=== PATIENT | male | born 1980 | race Caucasian/White ===

== ENCOUNTER 2017-01-16 13:33 | Emergency (ER) | payer MEDICAID, OTHER ==
[~2017-01-16] VITALS: Ht 170.2 cm; Wt 120.5 kg
[2017-01-16] MEDS ORDERED: RISPC375 IM (13:42)
[2017-01-16 14:35] LABS: BASOPHILS % (AUTO) 0.4 % (0.0-2.0); EOSINOPHILS % (AUTO) 3.7 % (1.0-6.0); HEMATOCRIT 43.9 % (41-53); HEMOGLOBIN 15.2 g/dL (13.5-17.5); LYMPHOCYTES # (AUTO) 2.8 K/uL (1.0-4.8); LYMPHOCYTES % (AUTO) 23.1 % (22.0-44.0); MEAN CORPUSCULAR HEMOGLOBIN 31.7 pg (26.0-34.0); MEAN CORPUSCULAR HGB CONC 34.7 G/dL (31.0-37.0); MEAN CORPUSCULAR VOLUME 91 fL (80-100); MONOCYTES % (AUTO) 8.3 % (2.0-9.0); NEUTROPHILS # (AUTO) 7.8 K/uL (1.8-7.7); NEUTROPHILS % (AUTO) 64.5 % (40.0-70.0); PLATELET COUNT (AUTO) 367 K/uL (150-450); RED CELL DISTRIBUTION WIDTH 13.4 % (11.5-14.5)
[2017-01-16 14:52] LABS: ANION GAP 8 mmol/L (8-16); CALCIUM, TOTAL 8.4 mg/dL (8.8-10.5); CARBON DIOXIDE 24 mmol/L (22-29); CHLORIDE 105 mmol/L (98-107); GLOMERULAR FILTR. RATE CALC > 60 mL/min (>60); POTASSIUM 3.7 mmol/L (3.5-5.1); SODIUM SERUM 137 mmol/L (136-145); UREA NITROGEN, BLOOD 6 mg/dL (7-18)
[2017-01-16 14:58] LABS: ALANINE AMINOTRANSFERASE 83 U/L (12-78); ALBUMIN 3.3 g/dL (3.4-5.0); ASPARTATE AMINOTRANSFERASE 48 U/L (15-37); BILIRUBIN,TOTAL 0.4 mg/dL (0.1-1.0); TOTAL PROTEIN, SERUM 7.3 g/dL (6.4-8.2)
[2017-01-16 16:00] VITALS: BP 142/90
== END 2017-01-16 17:03 | disposition home or self-care (01) ==
LOC: EMS 13:35
DX: F31.9 Bipolar disorder, unspecified (principal); F20.9 Schizophrenia, unspecified; F43.10 Post-traumatic stress disorder, unspecified; F41.9 Anxiety disorder, unspecified; F17.210 Nicotine dependence, cigarettes, uncomplicated
CPT/HCPCS: 36415; 80053; 80307; 85025; 99284; G0480

== ENCOUNTER 2018-01-15 01:37 | Emergency (ER) | payer OTHER ==
[~2018-01-15] VITALS: Ht 165.1 cm; Wt 114.5 kg
[~2018-01-15 01:37] MED LIST: RISPC375 IM
[2018-01-15] MEDS ORDERED: PALI39DI IM (01:46)
[2018-01-15] MEDS ORDERED: ACETAMINOPHEN 500 MG TABLET PO ONE (02:00)
[2018-01-15 02:46] VITALS: BP 136/74
== END 2018-01-15 03:21 | disposition home or self-care (01) ==
LOC: EMS 01:38
DX: S00.83XA Contusion of other part of head, initial encounter (principal); S00.33XA Contusion of nose, initial encounter; F41.9 Anxiety disorder, unspecified; F31.9 Bipolar disorder, unspecified; F20.9 Schizophrenia, unspecified; F43.10 Post-traumatic stress disorder, unspecified; F17.210 Nicotine dependence, cigarettes, uncomplicated; Z79.899 Other long term (current) drug therapy; Y04.0XXA Assault by unarmed brawl or fight, initial encounter; Y93.89 Activity, other specified; Y92.098 Other place in other non-institutional residence as the place of occurrence of the external cause; Y99.8 Other external cause status
CPT/HCPCS: 70160; 99284; 99406

== ENCOUNTER 2020-11-22 08:36 | Inpatient (IN) | payer MEDICAID, OTHER ==
[~2020-11-22] VITALS: Ht 167.6 cm; Wt 103.0 kg
[~2020-11-22 08:36] MED LIST changes: +PALI39DI IM; -RISPC375 IM
[2020-11-22] MEDS ORDERED: PERTUSS(ACELL),DIPH,TET VAC/PF 0.5 ML SYRINGE IM. ONE (10:15)
[2020-11-22] MEDS ORDERED: SODIUM CHLORIDE 0.9% 250 ML IRRIG SOLUTION BOTTLE IRRIG ONE (10:15)
[2020-11-22] MEDS ORDERED: LORazepam 2 MG/ML VIAL IM ONE (10:15)
[2020-11-22] MEDS ORDERED: HALOPERIDOL LACTATE 5 MG/ML VIAL IM ONE (10:15)
[2020-11-22] MEDS ORDERED: DiphenhydrAMINE HCL 50 MG/ML VIAL IM ONE (10:15)
[2020-11-22] MEDS ORDERED: LIDOCAINE 1%/EPI 1:200,000/PF 10 ML VIAL ID ONE (10:30)
[2020-11-22 10:57] LABS: BASOPHILS % (AUTO) 0.7 % (0.0-2.0); EOSINOPHILS % (AUTO) 1.5 % (1.0-6.0); HEMATOCRIT 39.9 % (41-53); HEMOGLOBIN 13.4 g/dL (13.5-17.5); LYMPHOCYTES # (AUTO) 1.5 K/uL (1.0-4.8); LYMPHOCYTES % (AUTO) 11.3 % (22.0-44.0); MEAN CORPUSCULAR HEMOGLOBIN 31.3 pg (26.0-34.0); MEAN CORPUSCULAR HGB CONC 33.7 G/dL (31.0-37.0); MEAN CORPUSCULAR VOLUME 93 fL (80-100); MONOCYTES # (AUTO) 1.3 K/uL (0.1-1.0); MONOCYTES % (AUTO) 9.8 % (2.0-9.0); NEUTROPHILS # (AUTO) 10.2 K/uL (1.8-7.7); NEUTROPHILS % (AUTO) 76.7 % (40.0-70.0); PLATELET COUNT (AUTO) 361 K/uL (150-450); RED BLOOD CELL COUNT(AUTO) 4.29 MIL/uL (4.50-5.90); RED CELL DISTRIBUTION WIDTH 12.6 % (11.5-14.5)
[2020-11-22 11:02] LABS: COVID AG,FIA SOURCE NASOPHARYNGEAL
[2020-11-22 11:10] LABS: ANION GAP 8 mmol/L (8-16); CALCIUM, TOTAL 8.3 mg/dL (8.8-10.5); CARBON DIOXIDE 25 mmol/L (22-29); CHLORIDE 103 mmol/L (98-107); CREATININE 0.83 mg/dL (0.60-1.30); GLOMERULAR FILTR. RATE CALC > 60 mL/min (>60); GLUCOSE,RANDOM 101 mg/dL (70-110); POTASSIUM 3.6 mmol/L (3.5-5.1); SODIUM SERUM 136 mmol/L (136-145); UREA NITROGEN, BLOOD 9 mg/dL (7-18)
[2020-11-22 11:15] LABS: AMPHET/METH SCREEN,URINE NEGATIVE (NEGATIVE); BARBITURATE SCREEN, URINE NEGATIVE (NEGATIVE); BENZODIAZEPINES SCREEN,URINE NEGATIVE (NEGATIVE); CANNABINOID SCREEN,URINE NEGATIVE (NEGATIVE); COCAINE SCREEN,URINE NEGATIVE (NEGATIVE); METHADONE SCREEN, URINE NEGATIVE (NEGATIVE); OPIATE SCREEN,URINE NEGATIVE (NEGATIVE)
[2020-11-22 11:17] LABS: PHENCYCLIDINE SCREEN,URINE NEGATIVE (NEGATIVE)
[2020-11-22 11:18] LABS: ALANINE AMINOTRANSFERASE 80 U/L (12-78); ALBUMIN 3.3 g/dL (3.4-5.0); ALKALINE PHOSPHATASE 63 U/L (46-116); ASPARTATE AMINOTRANSFERASE 71 U/L (15-37); BILIRUBIN,TOTAL 0.2 mg/dL (0.1-1.0); TOTAL PROTEIN, SERUM 7.4 g/dL (6.4-8.2)
[2020-11-22] MEDS ORDERED: LOPERAMIDE HCL 2 MG CAPSULE PO PRN (11:30)
[2020-11-22] MEDS ORDERED: GuaiFENesin/D-METHORPHAN [SUGAR-FREE] 200-20MG/10 ML SYRUP UDCUP PO PRN (11:30)
[2020-11-22] MEDS ORDERED: MAG HYDROX/AL HYDROX/SIMETH ES 30 ML SUSPENSION UDCUP PO PRN (11:30)
[2020-11-22] MEDS ORDERED: PROMETHAZINE HCL 25 MG TABLET PO PRN (11:30)
[2020-11-22] MEDS ORDERED: TUBERCULIN, PURIFIED PROTEIN DERIVATIVE 5 TU/0.1 ML SYRINGE ID ONE (11:30)
[2020-11-22] MEDS ORDERED: IBUPROFEN 600 MG TABLET PO ONE (19:00)
[2020-11-22] MEDS: ACETAMINOPHEN 325 MG TABLET PO PRN (20:54)
[2020-11-22] MEDS: THIAMINE 100 MG TABLET PO SCH (22:25)
[2020-11-22] MEDS: HydrOXYzine PAMOATE 50 MG CAPSULE PO PRN (22:25)
[2020-11-22] MEDS: OLANZapine 5 MG RAPDIS TABLET PO SCH (22:25)
[2020-11-22] MEDS: MELATONIN 5 MG TABLET PO SCH (22:25)
[2020-11-22 23:06] VITALS: BP 127/76
[2020-11-23] MEDS ORDERED: ACETAMINOPHEN 325 MG TABLET PO PRN (01:00)
[2020-11-23 02:18] VITALS: BP 150/71
[2020-11-23] MEDS: HydrOXYzine PAMOATE 50 MG CAPSULE PO PRN ×3 (02:27→11:13)
[2020-11-23] MEDS: ACETAMINOPHEN 325 MG TABLET PO PRN ×3 (02:27→18:28)
[2020-11-23] MEDS: OLANZapine 5 MG RAPDIS TABLET PO PRN ×2 (06:37→13:56)
[2020-11-23 06:38] VITALS: BP 136/80
[2020-11-23 07:57] LABS: HEMOGLOBIN A1C 5.4 % (3.8-5.6)
[2020-11-23 08:17] LABS: CHOL/HDL RATIO 3.3 (4.2-7.3); FREE T4 (FREE THYROXINE) 1.05 ng/dL (0.76-1.46); THYROID STIMULATING HORMONE 1.95 uIU/mL (0.36-3.74)
[2020-11-23] MEDS: NICOTINE 21 MG/24 HOUR PATCH TD SCH (08:29)
[2020-11-23] MEDS: NALTREXONE HCL 50 MG TABLET PO SCH (08:30)
[2020-11-23] MEDS: OMEGA-3/DHA/EPA/FISH OIL 1,000 MG CAPSULE PO SCH (08:30)
[2020-11-23] MEDS: THIAMINE 100 MG TABLET PO SCH ×2 (08:30→16:36)
[2020-11-23] MEDS: FOLIC ACID 1 MG TABLET PO SCH (08:30)
[2020-11-23] MEDS: MULTIVITAMINS WITH MINERALS, THERAPEUTIC TABLET PO SCH (08:30)
[2020-11-23] MEDS: BACITRACIN 28 GM OINTMENT TP SCH ×2 (08:32→17:06)
[2020-11-23 09:14] VITALS: BP 115/64
[2020-11-23] MEDS: MAGNESIUM HYDROXIDE SUSPENSION 30 ML UDCUP PO PRN (09:29)
[2020-11-23] MEDS: NAPROXEN 500 MG TABLET PO SCH ×2 (12:41→16:36)
[2020-11-23] MEDS ORDERED: GABAPENTIN 300 MG CAPSULE PO SCH ×2 (13:00→21:00)
[2020-11-23] MEDS ORDERED: PALIPERIDONE PALMITATE 39 MG/0.25 ML SYRINGE IM ONE (13:30)
[2020-11-23] MEDS: GABAPENTIN 300 MG CAPSULE PO SCH (16:36)
[2020-11-23] MEDS: LORazepam 2 MG TABLET PO PRN (16:36)
[2020-11-23 17:44] VITALS: BP 132/72
[2020-11-23] MEDS: OLANZapine 5 MG RAPDIS TABLET PO SCH (20:05)
[2020-11-23] MEDS: MELATONIN 5 MG TABLET PO SCH (20:05)
[2020-11-24 02:37] VITALS: BP 153/86
[2020-11-24] MEDS: ACETAMINOPHEN 325 MG TABLET PO PRN ×2 (02:46→13:36)
[2020-11-24] MEDS: MAGNESIUM HYDROXIDE SUSPENSION 30 ML UDCUP PO PRN (02:53)
[2020-11-24] MEDS: OLANZapine 5 MG RAPDIS TABLET PO PRN ×2 (05:36→18:09)
[2020-11-24] MEDS: LORazepam 2 MG TABLET PO PRN ×3 (05:36→18:09)
[2020-11-24] MEDS: GABAPENTIN 300 MG CAPSULE PO PRN ×3 (05:46→18:15)
[2020-11-24] MEDS: MULTIVITAMINS WITH MINERALS, THERAPEUTIC TABLET PO SCH (08:37)
[2020-11-24] MEDS: FOLIC ACID 1 MG TABLET PO SCH (08:37)
[2020-11-24] MEDS: THIAMINE 100 MG TABLET PO SCH ×2 (08:37→16:57)
[2020-11-24] MEDS: OMEGA-3/DHA/EPA/FISH OIL 1,000 MG CAPSULE PO SCH (08:37)
[2020-11-24] MEDS: NALTREXONE HCL 50 MG TABLET PO SCH (08:38)
[2020-11-24] MEDS: GABAPENTIN 300 MG CAPSULE PO SCH ×3 (08:38→16:57)
[2020-11-24] MEDS: BACITRACIN 28 GM OINTMENT TP SCH ×2 (08:38→17:00)
[2020-11-24] MEDS: NICOTINE 21 MG/24 HOUR PATCH TD SCH (08:38)
[2020-11-24] MEDS: NAPROXEN 500 MG TABLET PO SCH ×2 (08:40→16:57)
[2020-11-24] MEDS: HydrOXYzine PAMOATE 50 MG CAPSULE PO PRN ×2 (08:55→17:49)
[2020-11-24 09:35] VITALS: BP 126/61
[2020-11-24 16:29] VITALS: BP 132/88
[2020-11-24] MEDS: OLANZapine 10 MG RAPDIS TABLET PO SCH (20:17)
[2020-11-24] MEDS: MELATONIN 5 MG TABLET PO SCH (20:17)
[2020-11-25 00:03] VITALS: BP 114/61
[2020-11-25] MEDS: ACETAMINOPHEN 325 MG TABLET PO PRN ×3 (00:11→12:21)
[2020-11-25] MEDS: GABAPENTIN 300 MG CAPSULE PO SCH ×4 (00:12→16:49)
[2020-11-25] MEDS: LORazepam 2 MG TABLET PO PRN ×4 (00:12→16:50)
[2020-11-25] MEDS: GABAPENTIN 300 MG CAPSULE PO PRN ×5 (00:12→22:56)
[2020-11-25] MEDS: NAPROXEN 500 MG TABLET PO SCH ×2 (06:31→16:49)
[2020-11-25] MEDS: OMEGA-3/DHA/EPA/FISH OIL 1,000 MG CAPSULE PO SCH (09:15)
[2020-11-25] MEDS: NALTREXONE HCL 50 MG TABLET PO SCH (09:15)
[2020-11-25] MEDS: MULTIVITAMINS WITH MINERALS, THERAPEUTIC TABLET PO SCH (09:15)
[2020-11-25] MEDS: THIAMINE 100 MG TABLET PO SCH ×2 (09:15→16:49)
[2020-11-25] MEDS: BACITRACIN 28 GM OINTMENT TP SCH ×2 (09:16→16:50)
[2020-11-25] MEDS: FOLIC ACID 1 MG TABLET PO SCH (09:16)
[2020-11-25] MEDS: NICOTINE 21 MG/24 HOUR PATCH TD SCH (09:16)
[2020-11-25] MEDS ORDERED: OMEG-135 PO (14:09)
[2020-11-25] MEDS ORDERED: NALT50TA PO (14:09)
[2020-11-25] MEDS ORDERED: GABA-1181 PO (14:09)
[2020-11-25] MEDS ORDERED: OLAN10TA26 PO (14:09)
[2020-11-25] MEDS ORDERED: MELA5TAB3 PO (14:09)
[2020-11-25 14:38] VITALS: BP 140/86
[2020-11-25 16:24] VITALS: BP 136/81
[2020-11-25] MEDS: OLANZapine 5 MG RAPDIS TABLET PO PRN (16:50)
[2020-11-25] MEDS: HydrOXYzine PAMOATE 50 MG CAPSULE PO PRN (16:50)
[2020-11-25] MEDS: OLANZapine 10 MG RAPDIS TABLET PO SCH (20:34)
[2020-11-25] MEDS: MELATONIN 5 MG TABLET PO SCH (20:34)
[2020-11-26] MEDS: ACETAMINOPHEN 325 MG TABLET PO PRN (00:04)
[2020-11-26 00:07] VITALS: BP 123/78
[2020-11-26] MEDS: NAPROXEN 500 MG TABLET PO SCH (07:02)
[2020-11-26] MEDS: THIAMINE 100 MG TABLET PO SCH (08:25)
[2020-11-26] MEDS: NALTREXONE HCL 50 MG TABLET PO SCH (08:25)
[2020-11-26] MEDS: FOLIC ACID 1 MG TABLET PO SCH (08:25)
[2020-11-26] MEDS: GABAPENTIN 300 MG CAPSULE PO SCH ×2 (08:25→12:53)
[2020-11-26] MEDS: OMEGA-3/DHA/EPA/FISH OIL 1,000 MG CAPSULE PO SCH (08:25)
[2020-11-26] MEDS: NICOTINE 21 MG/24 HOUR PATCH TD SCH (08:26)
[2020-11-26] MEDS: MULTIVITAMINS WITH MINERALS, THERAPEUTIC TABLET PO SCH (08:27)
[2020-11-26] MEDS: BACITRACIN 28 GM OINTMENT TP SCH (08:27)
[2020-11-26 08:39] VITALS: BP 137/76
[2020-11-26] MEDS: LORazepam 2 MG TABLET PO PRN (08:58)
[2020-11-26] MEDS: OLANZapine 5 MG RAPDIS TABLET PO PRN (08:58)
[2020-11-26] MEDS: HydrOXYzine PAMOATE 50 MG CAPSULE PO PRN (08:58)
[2020-11-26] MEDS ORDERED: NAPR-1025 PO (09:57)
== END 2020-11-26 13:30 | disposition home or self-care (01) | DRG 750 ==
LOC: EMS 08:44 → B3A 20:35
PROVIDERS: ADMIT Psychiatry & Neurology Psychiatry; ATTEND Psychiatry & Neurology Psychiatry
PROC: 0HQDXZZ Repair Right Lower Arm Skin, External Approach (ICD-10-PCS; principal; 2020-11-22)
DX: F20.9 Schizophrenia, unspecified (principal); E66.01 Morbid (severe) obesity due to excess calories; J44.9 Chronic obstructive pulmonary disease, unspecified; Z20.822 Contact with and (suspected) exposure to COVID-19; F17.210 Nicotine dependence, cigarettes, uncomplicated; F41.9 Anxiety disorder, unspecified; F43.10 Post-traumatic stress disorder, unspecified; F31.9 Bipolar disorder, unspecified; S51.812A Laceration without foreign body of left forearm, initial encounter; S51.811A Laceration without foreign body of right forearm, initial encounter; X78.1XXA Intentional self-harm by knife, initial encounter; Z79.899 Other long term (current) drug therapy; Z91.14 Patient's other noncompliance with medication regimen; Y93.89 Activity, other specified; Y92.89 Other specified places as the place of occurrence of the external cause; Y99.8 Other external cause status; Z68.36 Body mass index [BMI] 36.0-36.9, adult
CPT/HCPCS: 80053; 80061; 83036; 84439; 84443; 85025; 86592; 90715; 99291; A9575; G0480; J1200; J1630; J2060; J3490

== ENCOUNTER 2020-12-01 15:21 | Emergency (ER) | payer MEDICAID, OTHER ==
[~2020-12-01] VITALS: Ht 165.1 cm; Wt 90.9 kg
[~2020-12-01 15:21] MED LIST changes: +GABA-1181 PO; +MELA5TAB3 PO; +NALT50TA PO; +NAPR-1025 PO; +OLAN10TA26 PO; +OMEG-135 PO; -PALI39DI IM
[2020-12-01 16:02] VITALS: BP 124/69
== END 2020-12-01 16:52 | disposition home or self-care (01) ==
LOC: EMS 15:26
DX: S51.811D Laceration without foreign body of right forearm, subsequent encounter (principal); F17.210 Nicotine dependence, cigarettes, uncomplicated; F31.9 Bipolar disorder, unspecified; S51.812D Laceration without foreign body of left forearm, subsequent encounter; Z91.030 Bee allergy status; Z91.010 Allergy to peanuts; Z79.899 Other long term (current) drug therapy; X58.XXXD Exposure to other specified factors, subsequent encounter
CPT/HCPCS: 99283; Z7502

== ENCOUNTER 2020-12-02 19:38 | Inpatient (IN) | payer MEDICAID, OTHER ==
[~2020-12-02] VITALS: Ht 165.1 cm; Wt 104.4 kg
[2020-12-02 21:18] LABS: BASOPHILS % (AUTO) 0.7 % (0.0-2.0); EOSINOPHILS % (AUTO) 2.9 % (1.0-6.0); HEMOGLOBIN 14.1 g/dL (13.5-17.5); LYMPHOCYTES % (AUTO) 23.7 % (22.0-44.0); MEAN CORPUSCULAR HEMOGLOBIN 31.4 pg (26.0-34.0); MEAN CORPUSCULAR HGB CONC 33.6 G/dL (31.0-37.0); MEAN CORPUSCULAR VOLUME 94 fL (80-100); MONOCYTES # (AUTO) 1.4 K/uL (0.1-1.0); MONOCYTES % (AUTO) 10.8 % (2.0-9.0); NEUTROPHILS # (AUTO) 7.8 K/uL (1.8-7.7); NEUTROPHILS % (AUTO) 61.9 % (40.0-70.0); PLATELET COUNT (AUTO) 381 K/uL (150-450); RED BLOOD CELL COUNT(AUTO) 4.49 MIL/uL (4.50-5.90); RED CELL DISTRIBUTION WIDTH 12.8 % (11.5-14.5)
[2020-12-02 21:27] LABS: ANION GAP 7 mmol/L (8-16); CALCIUM, TOTAL 8.1 mg/dL (8.8-10.5); CARBON DIOXIDE 28 mmol/L (22-29); CHLORIDE 105 mmol/L (98-107); CREATININE 0.84 mg/dL (0.60-1.30); GLOMERULAR FILTR. RATE CALC > 60 mL/min (>60); GLUCOSE,RANDOM 94 mg/dL (70-110); SODIUM SERUM 140 mmol/L (136-145); UREA NITROGEN, BLOOD 12 mg/dL (7-18)
[2020-12-02 21:33] LABS: ALANINE AMINOTRANSFERASE 59 U/L (12-78); ALBUMIN 3.5 g/dL (3.4-5.0); ALKALINE PHOSPHATASE 69 U/L (46-116); ASPARTATE AMINOTRANSFERASE 47 U/L (15-37); BILIRUBIN,TOTAL 0.3 mg/dL (0.1-1.0); TOTAL PROTEIN, SERUM 7.4 g/dL (6.4-8.2)
[2020-12-02] MEDS ORDERED: LORazepam 2 MG/ML VIAL IM ONE (22:00)
[2020-12-02] MEDS ORDERED: DiphenhydrAMINE HCL 50 MG/ML VIAL IM ONE (22:00)
[2020-12-02] MEDS ORDERED: HALOPERIDOL LACTATE 5 MG/ML VIAL IM ONE (22:00)
[2020-12-02 23:10] LABS: COVID AG,FIA SOURCE NASOPHARYNGEAL
[2020-12-03] MEDS ORDERED: QUEtiapine FUMARATE 100 MG TABLET PO PRN (00:30)
[2020-12-03 03:00] VITALS: BP 134/77
[2020-12-03] MEDS: LORazepam 2 MG TABLET PO PRN ×3 (07:38→21:33)
[2020-12-03 08:47] VITALS: BP 144/79
[2020-12-03] MEDS ORDERED: LOPERAMIDE HCL 2 MG CAPSULE PO PRN (11:30)
[2020-12-03] MEDS ORDERED: PROMETHAZINE HCL 25 MG TABLET PO PRN (11:30)
[2020-12-03] MEDS ORDERED: ACETAMINOPHEN 325 MG TABLET PO PRN (11:30)
[2020-12-03] MEDS ORDERED: GuaiFENesin/D-METHORPHAN [SUGAR-FREE] 200-20MG/10 ML SYRUP UDCUP PO PRN (11:30)
[2020-12-03] MEDS ORDERED: MAGNESIUM HYDROXIDE SUSPENSION 30 ML UDCUP PO PRN (11:30)
[2020-12-03] MEDS ORDERED: PALIPERIDONE PALMITATE 234 MG/1.5 ML SYRINGE IM ONE (11:30)
[2020-12-03] MEDS ORDERED: MAG HYDROX/AL HYDROX/SIMETH ES 30 ML SUSPENSION UDCUP PO PRN (11:30)
[2020-12-03] MEDS: GABAPENTIN 300 MG CAPSULE PO SCH ×3 (12:53→20:25)
[2020-12-03] MEDS: OLANZapine 5 MG RAPDIS TABLET PO PRN (16:38)
[2020-12-03] MEDS: THIAMINE 100 MG TABLET PO SCH (16:38)
[2020-12-03 17:11] VITALS: BP 150/88
[2020-12-03] MEDS: OLANZapine 5 MG RAPDIS TABLET PO SCH (20:24)
[2020-12-03] MEDS: MELATONIN 5 MG TABLET PO SCH (20:25)
[2020-12-03] MEDS ORDERED: OLANZapine 5 MG RAPDIS TABLET PO SCH (21:00)
[2020-12-04 01:29] VITALS: BP 140/70
[2020-12-04] MEDS: LORazepam 2 MG TABLET PO PRN ×2 (05:39→16:06)
[2020-12-04 07:46] LABS: HEMOGLOBIN A1C 5.4 % (3.8-5.6)
[2020-12-04 08:12] VITALS: BP 102/67
[2020-12-04] MEDS: FOLIC ACID 1 MG TABLET PO SCH (08:23)
[2020-12-04] MEDS: THIAMINE 100 MG TABLET PO SCH ×2 (08:23→16:05)
[2020-12-04] MEDS: OMEGA-3/DHA/EPA/FISH OIL 1,000 MG CAPSULE PO SCH (08:23)
[2020-12-04] MEDS: MULTIVITAMINS WITH MINERALS, THERAPEUTIC TABLET PO SCH (08:23)
[2020-12-04] MEDS: NALTREXONE HCL 50 MG TABLET PO SCH (08:23)
[2020-12-04] MEDS: GABAPENTIN 300 MG CAPSULE PO SCH ×4 (08:26→20:25)
[2020-12-04 08:33] LABS: CHOL/HDL RATIO 3.2 (4.2-7.3); FREE T4 (FREE THYROXINE) 1.24 ng/dL (0.76-1.46); THYROID STIMULATING HORMONE 1.57 uIU/mL (0.36-3.74)
[2020-12-04] MEDS: HydrOXYzine PAMOATE 50 MG CAPSULE PO PRN ×2 (09:02→18:43)
[2020-12-04] MEDS: NICOTINE 14 MG/24 HOUR PATCH TD SCH (09:46)
[2020-12-04] MEDS: OLANZapine 5 MG RAPDIS TABLET PO PRN (12:40)
[2020-12-04] MEDS: BACITRACIN/POLYMYXIN B 15 GM OINTMENT TP SCH (16:06)
[2020-12-04 16:13] VITALS: BP 128/75
[2020-12-04] MEDS ORDERED: BACITRACIN/POLYMYXIN B 15 GM OINTMENT TP SCH (17:00)
[2020-12-04] MEDS: ZOLPIDEM TARTRATE 10 MG TABLET PO PRN (20:25)
[2020-12-04] MEDS: OLANZapine 5 MG RAPDIS TABLET PO SCH (20:25)
[2020-12-04] MEDS: MELATONIN 5 MG TABLET PO SCH (20:25)
[2020-12-05 04:35] VITALS: BP 138/76
[2020-12-05] MEDS: MULTIVITAMINS WITH MINERALS, THERAPEUTIC TABLET PO SCH (08:27)
[2020-12-05] MEDS: NALTREXONE HCL 50 MG TABLET PO SCH (08:27)
[2020-12-05] MEDS: BACITRACIN/POLYMYXIN B 15 GM OINTMENT TP SCH ×2 (08:27→16:17)
[2020-12-05] MEDS: LORazepam 2 MG TABLET PO PRN ×3 (08:28→20:25)
[2020-12-05] MEDS: HydrOXYzine PAMOATE 50 MG CAPSULE PO PRN ×2 (08:28→16:12)
[2020-12-05] MEDS: THIAMINE 100 MG TABLET PO SCH ×2 (08:28→16:12)
[2020-12-05] MEDS: GABAPENTIN 300 MG CAPSULE PO SCH ×4 (08:28→20:25)
[2020-12-05] MEDS: OLANZapine 5 MG RAPDIS TABLET PO PRN (08:28)
[2020-12-05] MEDS: FOLIC ACID 1 MG TABLET PO SCH (08:32)
[2020-12-05] MEDS: OMEGA-3/DHA/EPA/FISH OIL 1,000 MG CAPSULE PO SCH (08:32)
[2020-12-05] MEDS: NICOTINE 14 MG/24 HOUR PATCH TD SCH (08:40)
[2020-12-05 09:11] VITALS: BP 139/69
[2020-12-05 17:35] VITALS: BP 139/67
[2020-12-05] MEDS: OLANZapine 5 MG RAPDIS TABLET PO SCH (20:25)
[2020-12-05] MEDS: MELATONIN 5 MG TABLET PO SCH (20:25)
[2020-12-05] MEDS: ZOLPIDEM TARTRATE 10 MG TABLET PO PRN (20:38)
[2020-12-06 06:00] VITALS: BP 126/74
[2020-12-06] MEDS: NALTREXONE HCL 50 MG TABLET PO SCH (08:15)
[2020-12-06] MEDS: GABAPENTIN 300 MG CAPSULE PO SCH ×4 (08:15→20:35)
[2020-12-06] MEDS: FOLIC ACID 1 MG TABLET PO SCH (08:15)
[2020-12-06] MEDS: THIAMINE 100 MG TABLET PO SCH ×2 (08:15→16:17)
[2020-12-06] MEDS: MULTIVITAMINS WITH MINERALS, THERAPEUTIC TABLET PO SCH (08:15)
[2020-12-06] MEDS: OMEGA-3/DHA/EPA/FISH OIL 1,000 MG CAPSULE PO SCH (08:15)
[2020-12-06] MEDS: BACITRACIN/POLYMYXIN B 15 GM OINTMENT TP SCH ×2 (08:16→17:06)
[2020-12-06] MEDS: NICOTINE 14 MG/24 HOUR PATCH TD SCH (08:16)
[2020-12-06 08:21] VITALS: BP 111/62
[2020-12-06] MEDS: LORazepam 2 MG TABLET PO PRN ×2 (11:05→15:48)
[2020-12-06] MEDS: OLANZapine 5 MG RAPDIS TABLET PO PRN ×2 (11:05→16:16)
[2020-12-06] MEDS: HydrOXYzine PAMOATE 50 MG CAPSULE PO PRN ×2 (11:05→16:16)
[2020-12-06 16:14] VITALS: BP 115/67
[2020-12-06] MEDS: OLANZapine 10 MG RAPDIS TABLET PO SCH (20:35)
[2020-12-06] MEDS: MELATONIN 5 MG TABLET PO SCH (20:35)
[2020-12-06] MEDS: ZOLPIDEM TARTRATE 10 MG TABLET PO PRN (20:36)
[2020-12-07 05:49] VITALS: BP 118/69
[2020-12-07] MEDS: HydrOXYzine PAMOATE 50 MG CAPSULE PO PRN ×2 (08:05→13:21)
[2020-12-07] MEDS: OLANZapine 5 MG RAPDIS TABLET PO PRN ×2 (08:05→16:37)
[2020-12-07 08:36] VITALS: BP 137/69
[2020-12-07] MEDS: OMEGA-3/DHA/EPA/FISH OIL 1,000 MG CAPSULE PO SCH (08:50)
[2020-12-07] MEDS: GABAPENTIN 300 MG CAPSULE PO SCH ×4 (08:51→20:38)
[2020-12-07] MEDS: MULTIVITAMINS WITH MINERALS, THERAPEUTIC TABLET PO SCH (08:51)
[2020-12-07] MEDS: BACITRACIN/POLYMYXIN B 15 GM OINTMENT TP SCH ×2 (08:51→16:57)
[2020-12-07] MEDS: FOLIC ACID 1 MG TABLET PO SCH (08:51)
[2020-12-07] MEDS: NICOTINE 14 MG/24 HOUR PATCH TD SCH (08:51)
[2020-12-07] MEDS: THIAMINE 100 MG TABLET PO SCH ×2 (08:51→16:37)
[2020-12-07] MEDS: NALTREXONE HCL 50 MG TABLET PO SCH (08:51)
[2020-12-07] MEDS: LORazepam 2 MG TABLET PO PRN ×2 (09:30→16:37)
[2020-12-07 16:07] VITALS: BP 120/78
[2020-12-07] MEDS: ZOLPIDEM TARTRATE 10 MG TABLET PO PRN (20:38)
[2020-12-07] MEDS: MELATONIN 5 MG TABLET PO SCH (20:38)
[2020-12-07] MEDS: DIVALPROEX SODIUM 500 MG ER TABLET PO SCH (20:39)
[2020-12-07] MEDS: OLANZapine 10 MG RAPDIS TABLET PO SCH (20:39)
[2020-12-08 05:58] VITALS: BP 118/74
[2020-12-08 08:22] VITALS: BP 131/68
[2020-12-08] MEDS: LORazepam 2 MG TABLET PO PRN (08:30)
[2020-12-08] MEDS: HydrOXYzine PAMOATE 50 MG CAPSULE PO PRN (08:30)
[2020-12-08] MEDS: OLANZapine 5 MG RAPDIS TABLET PO PRN (08:30)
[2020-12-08] MEDS: FOLIC ACID 1 MG TABLET PO SCH (08:49)
[2020-12-08] MEDS: NICOTINE 14 MG/24 HOUR PATCH TD SCH (08:49)
[2020-12-08] MEDS: MULTIVITAMINS WITH MINERALS, THERAPEUTIC TABLET PO SCH (08:49)
[2020-12-08] MEDS: OMEGA-3/DHA/EPA/FISH OIL 1,000 MG CAPSULE PO SCH (08:49)
[2020-12-08] MEDS: GABAPENTIN 300 MG CAPSULE PO SCH ×2 (08:49→12:54)
[2020-12-08] MEDS: BACITRACIN/POLYMYXIN B 15 GM OINTMENT TP SCH ×2 (08:49→17:06)
[2020-12-08] MEDS: NALTREXONE HCL 50 MG TABLET PO SCH (08:49)
[2020-12-08] MEDS: THIAMINE 100 MG TABLET PO SCH ×2 (08:49→16:46)
[2020-12-08 16:17] VITALS: BP 112/63
[2020-12-08] MEDS: GABAPENTIN 400 MG CAPSULE PO SCH ×2 (16:46→20:31)
[2020-12-08] MEDS: DIVALPROEX SODIUM 500 MG ER TABLET PO SCH (20:30)
[2020-12-08] MEDS: MELATONIN 5 MG TABLET PO SCH (20:31)
[2020-12-08] MEDS: OLANZapine 10 MG RAPDIS TABLET PO SCH (20:31)
[2020-12-09 06:14] VITALS: BP 121/81
[2020-12-09 09:01] VITALS: BP 116/57
[2020-12-09] MEDS: GABAPENTIN 400 MG CAPSULE PO SCH ×4 (09:11→20:14)
[2020-12-09] MEDS: MULTIVITAMINS WITH MINERALS, THERAPEUTIC TABLET PO SCH (09:11)
[2020-12-09] MEDS: NALTREXONE HCL 50 MG TABLET PO SCH (09:11)
[2020-12-09] MEDS: OMEGA-3/DHA/EPA/FISH OIL 1,000 MG CAPSULE PO SCH (09:11)
[2020-12-09] MEDS: NICOTINE 14 MG/24 HOUR PATCH TD SCH (09:11)
[2020-12-09] MEDS: FOLIC ACID 1 MG TABLET PO SCH (09:12)
[2020-12-09] MEDS: THIAMINE 100 MG TABLET PO SCH ×2 (09:12→16:29)
[2020-12-09] MEDS: BACITRACIN/POLYMYXIN B 15 GM OINTMENT TP SCH ×2 (09:12→17:06)
[2020-12-09] MEDS: LORazepam 2 MG TABLET PO PRN (10:09)
[2020-12-09 16:09] VITALS: BP 137/62
[2020-12-09] MEDS: OLANZapine 10 MG RAPDIS TABLET PO SCH (20:14)
[2020-12-09] MEDS: DIVALPROEX SODIUM 500 MG ER TABLET PO SCH (20:14)
[2020-12-09] MEDS: ZOLPIDEM TARTRATE 10 MG TABLET PO PRN (20:14)
[2020-12-09] MEDS: MELATONIN 5 MG TABLET PO SCH (20:14)
[2020-12-10 05:47] VITALS: BP 145/74
[2020-12-10] MEDS: OLANZapine 5 MG RAPDIS TABLET PO PRN (08:20)
[2020-12-10] MEDS: FOLIC ACID 1 MG TABLET PO SCH (08:40)
[2020-12-10] MEDS: THIAMINE 100 MG TABLET PO SCH ×2 (08:40→16:31)
[2020-12-10] MEDS: NALTREXONE HCL 50 MG TABLET PO SCH (08:40)
[2020-12-10] MEDS: NICOTINE 14 MG/24 HOUR PATCH TD SCH (08:40)
[2020-12-10] MEDS: OMEGA-3/DHA/EPA/FISH OIL 1,000 MG CAPSULE PO SCH (08:40)
[2020-12-10] MEDS: GABAPENTIN 400 MG CAPSULE PO SCH ×4 (08:40→20:45)
[2020-12-10] MEDS: BACITRACIN/POLYMYXIN B 15 GM OINTMENT TP SCH ×2 (08:40→16:31)
[2020-12-10] MEDS: MULTIVITAMINS WITH MINERALS, THERAPEUTIC TABLET PO SCH (08:40)
[2020-12-10 09:01] VITALS: BP 107/55
[2020-12-10 16:00] VITALS: BP 139/80
[2020-12-10] MEDS: LORazepam 2 MG TABLET PO PRN (19:43)
[2020-12-10] MEDS: DIVALPROEX SODIUM 500 MG ER TABLET PO SCH (20:40)
[2020-12-10] MEDS: OLANZapine 10 MG RAPDIS TABLET PO SCH (20:41)
[2020-12-10] MEDS: MELATONIN 5 MG TABLET PO SCH (20:41)
[2020-12-11 02:16] VITALS: BP 126/79
[2020-12-11] MEDS: OLANZapine 5 MG RAPDIS TABLET PO PRN ×2 (08:25→15:59)
[2020-12-11] MEDS: GABAPENTIN 400 MG CAPSULE PO SCH ×4 (08:33→21:17)
[2020-12-11] MEDS: OMEGA-3/DHA/EPA/FISH OIL 1,000 MG CAPSULE PO SCH (08:33)
[2020-12-11] MEDS: NALTREXONE HCL 50 MG TABLET PO SCH (08:33)
[2020-12-11] MEDS: MULTIVITAMINS WITH MINERALS, THERAPEUTIC TABLET PO SCH (08:33)
[2020-12-11] MEDS: FOLIC ACID 1 MG TABLET PO SCH (08:33)
[2020-12-11] MEDS: THIAMINE 100 MG TABLET PO SCH ×2 (08:33→16:00)
[2020-12-11] MEDS: NICOTINE 14 MG/24 HOUR PATCH TD SCH (08:34)
[2020-12-11] MEDS: BACITRACIN/POLYMYXIN B 15 GM OINTMENT TP SCH ×2 (08:34→16:00)
[2020-12-11 09:14] VITALS: BP 128/73
[2020-12-11] MEDS: LORazepam 2 MG TABLET PO PRN (15:59)
[2020-12-11 18:23] VITALS: BP 121/69
[2020-12-11] MEDS: DIVALPROEX SODIUM 500 MG ER TABLET PO SCH (21:17)
[2020-12-11] MEDS: OLANZapine 10 MG RAPDIS TABLET PO SCH (21:18)
[2020-12-11] MEDS: MELATONIN 5 MG TABLET PO SCH (21:21)
[2020-12-12 01:10] VITALS: BP 134/83
[2020-12-12] MEDS: OLANZapine 5 MG RAPDIS TABLET PO PRN ×3 (08:25→22:43)
[2020-12-12] MEDS: OMEGA-3/DHA/EPA/FISH OIL 1,000 MG CAPSULE PO SCH (08:45)
[2020-12-12] MEDS: GABAPENTIN 400 MG CAPSULE PO SCH ×4 (08:45→20:39)
[2020-12-12] MEDS: FOLIC ACID 1 MG TABLET PO SCH (08:45)
[2020-12-12] MEDS: THIAMINE 100 MG TABLET PO SCH ×2 (08:45→16:33)
[2020-12-12] MEDS: NALTREXONE HCL 50 MG TABLET PO SCH (08:45)
[2020-12-12] MEDS: MULTIVITAMINS WITH MINERALS, THERAPEUTIC TABLET PO SCH (08:45)
[2020-12-12] MEDS: BACITRACIN/POLYMYXIN B 15 GM OINTMENT TP SCH ×2 (08:45→16:33)
[2020-12-12] MEDS: NICOTINE 14 MG/24 HOUR PATCH TD SCH (08:45)
[2020-12-12 10:03] VITALS: BP 134/71
[2020-12-12] MEDS: LORazepam 2 MG TABLET PO PRN ×2 (16:33→22:44)
[2020-12-12 19:38] VITALS: BP 124/66
[2020-12-12] MEDS: MELATONIN 5 MG TABLET PO SCH (20:40)
[2020-12-12] MEDS: OLANZapine 10 MG RAPDIS TABLET PO SCH (20:40)
[2020-12-12] MEDS: DIVALPROEX SODIUM 500 MG ER TABLET PO SCH (20:40)
[2020-12-13 06:26] VITALS: BP 130/73
[2020-12-13] MEDS: NALTREXONE HCL 50 MG TABLET PO SCH (08:01)
[2020-12-13] MEDS: THIAMINE 100 MG TABLET PO SCH (08:01)
[2020-12-13] MEDS: GABAPENTIN 400 MG CAPSULE PO SCH ×2 (08:01→12:31)
[2020-12-13] MEDS: MULTIVITAMINS WITH MINERALS, THERAPEUTIC TABLET PO SCH (08:01)
[2020-12-13] MEDS: FOLIC ACID 1 MG TABLET PO SCH (08:01)
[2020-12-13] MEDS: OMEGA-3/DHA/EPA/FISH OIL 1,000 MG CAPSULE PO SCH (08:01)
[2020-12-13] MEDS: NICOTINE 14 MG/24 HOUR PATCH TD SCH (08:02)
[2020-12-13] MEDS: BACITRACIN/POLYMYXIN B 15 GM OINTMENT TP SCH (08:03)
[2020-12-13] MEDS: LORazepam 2 MG TABLET PO PRN (08:04)
[2020-12-13 08:27] VITALS: BP 133/76
[2020-12-13] MEDS ORDERED: GABA-1201 PO (13:28)
[2020-12-13] MEDS ORDERED: MELA5TAB3 PO (13:28)
[2020-12-13] MEDS ORDERED: DIVA-80 PO (13:28)
[2020-12-13] MEDS ORDERED: OMEG-135 PO (13:28)
[2020-12-13] MEDS ORDERED: OLAN10TA26 PO (13:28)
[2020-12-13] MEDS ORDERED: NALT50TA PO (13:28)
[2020-12-31] MEDS ORDERED: PALIPERIDONE PALMITATE 234 MG/1.5 ML SYRINGE IM SCH (09:00)
== END 2020-12-13 15:40 | disposition home or self-care (01) | DRG 750 ==
LOC: EMS 19:41 → B3A 12-03 01:20
PROVIDERS: ADMIT Psychiatry & Neurology Psychiatry; ATTEND Psychiatry & Neurology Psychiatry
DX: F25.0 Schizoaffective disorder, bipolar type (principal); R45.851 Suicidal ideations; R45.850 Homicidal ideations; F17.210 Nicotine dependence, cigarettes, uncomplicated; Z20.822 Contact with and (suspected) exposure to COVID-19; F43.10 Post-traumatic stress disorder, unspecified; J44.9 Chronic obstructive pulmonary disease, unspecified; E66.01 Morbid (severe) obesity due to excess calories; F32.9 Major depressive disorder, single episode, unspecified; F41.9 Anxiety disorder, unspecified
CPT/HCPCS: 80053; 80061; 80164; 83036; 84439; 84443; 85025; 86592; 87081; 99291; A9575; G0480; J1200; J1630; J2060

== ENCOUNTER 2020-12-15 08:34 | Inpatient (IN) | payer MEDICAID, OTHER ==
[~2020-12-15] VITALS: Ht 165.1 cm; Wt 102.5 kg
[~2020-12-15 08:34] MED LIST changes: +DIVA-80 PO; -GABA-1181 PO; +GABA-1201 PO; -NAPR-1025 PO
[2020-12-15] MEDS ORDERED: PALI39DI IM (09:10)
[2020-12-15] MEDS ORDERED: LORazepam 1 MG TABLET PO ONE (10:45)
[2020-12-15] MEDS ORDERED: OLANZapine 5 MG TABLET PO ONE (10:45)
[2020-12-15] MEDS ORDERED: MAG HYDROX/AL HYDROX/SIMETH ES 30 ML SUSPENSION UDCUP PO PRN (11:00)
[2020-12-15] MEDS ORDERED: PROMETHAZINE HCL 25 MG TABLET PO PRN (11:00)
[2020-12-15] MEDS ORDERED: LOPERAMIDE HCL 2 MG CAPSULE PO PRN (11:00)
[2020-12-15] MEDS ORDERED: CYANOCOBALAMIN 1,000 MCG/ML VIAL IM ONE (11:00)
[2020-12-15] MEDS ORDERED: GuaiFENesin/D-METHORPHAN [SUGAR-FREE] 200-20MG/10 ML SYRUP UDCUP PO PRN (11:00)
[2020-12-15] MEDS ORDERED: MAGNESIUM HYDROXIDE SUSPENSION 30 ML UDCUP PO PRN (11:00)
[2020-12-15 11:26] LABS: AMPHET/METH SCREEN,URINE NEGATIVE (NEGATIVE); BARBITURATE SCREEN, URINE NEGATIVE (NEGATIVE); BENZODIAZEPINES SCREEN,URINE NEGATIVE (NEGATIVE); CANNABINOID SCREEN,URINE NEGATIVE (NEGATIVE); COCAINE SCREEN,URINE NEGATIVE (NEGATIVE); METHADONE SCREEN, URINE NEGATIVE (NEGATIVE); OPIATE SCREEN,URINE NEGATIVE (NEGATIVE)
[2020-12-15 11:28] LABS: PHENCYCLIDINE SCREEN,URINE NEGATIVE (NEGATIVE)
[2020-12-15 11:44] LABS: BASOPHILS % (AUTO) 0.4 % (0.0-2.0); EOSINOPHILS % (AUTO) 1.2 % (1.0-6.0); HEMATOCRIT 42.9 % (41-53); HEMOGLOBIN 14.3 g/dL (13.5-17.5); LYMPHOCYTES # (AUTO) 2.1 K/uL (1.0-4.8); LYMPHOCYTES % (AUTO) 13.9 % (22.0-44.0); MEAN CORPUSCULAR HEMOGLOBIN 31.2 pg (26.0-34.0); MEAN CORPUSCULAR HGB CONC 33.4 G/dL (31.0-37.0); MEAN CORPUSCULAR VOLUME 93 fL (80-100); MONOCYTES # (AUTO) 1.6 K/uL (0.1-1.0); MONOCYTES % (AUTO) 10.7 % (2.0-9.0); NEUTROPHILS % (AUTO) 73.8 % (40.0-70.0); PLATELET COUNT (AUTO) 309 K/uL (150-450); RED BLOOD CELL COUNT(AUTO) 4.59 MIL/uL (4.50-5.90); RED CELL DISTRIBUTION WIDTH 12.6 % (11.5-14.5)
[2020-12-15 11:53] LABS: ANION GAP 8 mmol/L (8-16); CALCIUM, TOTAL 8.2 mg/dL (8.8-10.5); CARBON DIOXIDE 27 mmol/L (22-29); CHLORIDE 102 mmol/L (98-107); CREATININE 0.73 mg/dL (0.60-1.30); GLOMERULAR FILTR. RATE CALC > 60 mL/min (>60); GLUCOSE,RANDOM 100 mg/dL (70-110); POTASSIUM 3.6 mmol/L (3.5-5.1); SODIUM SERUM 137 mmol/L (136-145); UREA NITROGEN, BLOOD 10 mg/dL (7-18)
[2020-12-15 11:59] LABS: ACETAMINOPHEN < 2 mcg/mL (10-30); ALANINE AMINOTRANSFERASE 38 U/L (12-78); ALBUMIN 3.7 g/dL (3.4-5.0); ALKALINE PHOSPHATASE 65 U/L (46-116); ASPARTATE AMINOTRANSFERASE 42 U/L (15-37); BILIRUBIN,TOTAL 0.3 mg/dL (0.1-1.0); TOTAL PROTEIN, SERUM 7.5 g/dL (6.4-8.2)
[2020-12-15 19:11] LABS: COVID AG,FIA SOURCE NASOPHARYNGEAL
[2020-12-15] MEDS: OLANZapine 5 MG RAPDIS TABLET PO PRN (19:57)
[2020-12-15 23:59] VITALS: BP 144/85
[2020-12-16] MEDS: MELATONIN 5 MG TABLET PO SCH ×2 (00:05→20:05)
[2020-12-16] MEDS: THIAMINE 100 MG TABLET PO SCH ×3 (00:05→16:00)
[2020-12-16 00:28] VITALS: BP 144/85
[2020-12-16 04:53] VITALS: BP 132/78
[2020-12-16 08:37] VITALS: BP 137/67
[2020-12-16] MEDS: HydrOXYzine PAMOATE 50 MG CAPSULE PO PRN ×2 (08:50→15:52)
[2020-12-16] MEDS ORDERED: CloZAPine 25 MG TABLET PO SCH (09:00)
[2020-12-16] MEDS: MULTIVITAMINS WITH MINERALS, THERAPEUTIC TABLET PO SCH (09:15)
[2020-12-16] MEDS: FOLIC ACID 1 MG TABLET PO SCH (09:15)
[2020-12-16] MEDS: NALTREXONE HCL 50 MG TABLET PO SCH (09:15)
[2020-12-16] MEDS: OMEGA-3/DHA/EPA/FISH OIL 1,000 MG CAPSULE PO SCH (09:15)
[2020-12-16] MEDS: OLANZapine 5 MG RAPDIS TABLET PO PRN ×2 (10:21→15:52)
[2020-12-16] MEDS: GABAPENTIN 300 MG CAPSULE PO PRN (15:52)
[2020-12-16 16:34] VITALS: BP 136/72
[2020-12-16] MEDS: ZOLPIDEM TARTRATE 10 MG TABLET PO PRN (20:05)
[2020-12-17 01:11] VITALS: BP 139/75
[2020-12-17 08:36] VITALS: BP 140/77
[2020-12-17] MEDS: OMEGA-3/DHA/EPA/FISH OIL 1,000 MG CAPSULE PO SCH (08:54)
[2020-12-17] MEDS: THIAMINE 100 MG TABLET PO SCH ×2 (08:54→16:08)
[2020-12-17] MEDS: MULTIVITAMINS WITH MINERALS, THERAPEUTIC TABLET PO SCH (08:54)
[2020-12-17] MEDS: FOLIC ACID 1 MG TABLET PO SCH (08:54)
[2020-12-17] MEDS: NALTREXONE HCL 50 MG TABLET PO SCH (08:55)
[2020-12-17] MEDS ORDERED: CloZAPine 25 MG TABLET PO SCH ×2 (09:00→21:00)
[2020-12-17] MEDS: OLANZapine 5 MG RAPDIS TABLET PO PRN ×2 (09:55→09:56)
[2020-12-17] MEDS: HydrOXYzine PAMOATE 50 MG CAPSULE PO PRN (13:14)
[2020-12-17 16:20] VITALS: BP 127/66
[2020-12-17] MEDS: OLANZapine 5 MG RAPDIS TABLET PO SCH (20:09)
[2020-12-17] MEDS: MELATONIN 5 MG TABLET PO SCH (20:09)
[2020-12-18 00:14] VITALS: BP 129/61
[2020-12-18] MEDS: ZOLPIDEM TARTRATE 10 MG TABLET PO PRN (00:48)
[2020-12-18 07:58] LABS: BASOPHILS % (AUTO) 0.9 % (0.0-2.0); EOSINOPHILS % (AUTO) 4.3 % (1.0-6.0); HEMATOCRIT 41.5 % (41-53); LYMPHOCYTES # (AUTO) 2.5 K/uL (1.0-4.8); LYMPHOCYTES % (AUTO) 21.9 % (22.0-44.0); MEAN CORPUSCULAR HEMOGLOBIN 31.7 pg (26.0-34.0); MEAN CORPUSCULAR HGB CONC 33.6 G/dL (31.0-37.0); MEAN CORPUSCULAR VOLUME 94 fL (80-100); MONOCYTES # (AUTO) 1.2 K/uL (0.1-1.0); MONOCYTES % (AUTO) 10.9 % (2.0-9.0); NEUTROPHILS # (AUTO) 6.9 K/uL (1.8-7.7); PLATELET COUNT (AUTO) 336 K/uL (150-450); RED BLOOD CELL COUNT(AUTO) 4.41 MIL/uL (4.50-5.90); RED CELL DISTRIBUTION WIDTH 12.6 % (11.5-14.5)
[2020-12-18 08:07] VITALS: BP 152/79
[2020-12-18] MEDS: HydrOXYzine PAMOATE 50 MG CAPSULE PO PRN ×3 (08:13→17:08)
[2020-12-18] MEDS: GABAPENTIN 300 MG CAPSULE PO PRN ×3 (08:13→17:08)
[2020-12-18] MEDS: NALTREXONE HCL 50 MG TABLET PO SCH (08:14)
[2020-12-18] MEDS: OMEGA-3/DHA/EPA/FISH OIL 1,000 MG CAPSULE PO SCH (08:14)
[2020-12-18] MEDS: OLANZapine 5 MG RAPDIS TABLET PO PRN ×2 (08:14→12:33)
[2020-12-18] MEDS: MULTIVITAMINS WITH MINERALS, THERAPEUTIC TABLET PO SCH (08:14)
[2020-12-18] MEDS: FOLIC ACID 1 MG TABLET PO SCH (08:15)
[2020-12-18] MEDS: THIAMINE 100 MG TABLET PO SCH ×2 (08:15→17:02)
[2020-12-18] MEDS ORDERED: CloZAPine 25 MG TABLET PO SCH ×2 (09:00→21:00)
[2020-12-18] MEDS: NICOTINE 21 MG/24 HOUR PATCH TD SCH (11:36)
[2020-12-18 16:12] VITALS: BP 139/68
[2020-12-18] MEDS ORDERED: LORazepam 2 MG/ML VIAL IM ONE (18:45)
[2020-12-18] MEDS ORDERED: DiphenhydrAMINE HCL 50 MG/ML VIAL IM ONE (18:45)
[2020-12-18] MEDS ORDERED: ChlorproMAZINE HCL 50 MG/2 ML AMP IM ONE (18:45)
[2020-12-18] MEDS ORDERED: ChlorproMAZINE HCL 50 MG/2 ML AMP ONE (18:47)
[2020-12-18] MEDS: MELATONIN 5 MG TABLET PO SCH (20:37)
[2020-12-18] MEDS: OLANZapine 5 MG RAPDIS TABLET PO SCH (20:37)
[2020-12-18 22:11] VITALS: BP 122/68
[2020-12-19 08:36] VITALS: BP 155/67
[2020-12-19] MEDS: GABAPENTIN 300 MG CAPSULE PO PRN ×2 (08:46→16:16)
[2020-12-19] MEDS: THIAMINE 100 MG TABLET PO SCH ×2 (08:46→16:16)
[2020-12-19] MEDS: OMEGA-3/DHA/EPA/FISH OIL 1,000 MG CAPSULE PO SCH (08:46)
[2020-12-19] MEDS: MULTIVITAMINS WITH MINERALS, THERAPEUTIC TABLET PO SCH (08:46)
[2020-12-19] MEDS: FOLIC ACID 1 MG TABLET PO SCH (08:47)
[2020-12-19] MEDS: NALTREXONE HCL 50 MG TABLET PO SCH (08:47)
[2020-12-19] MEDS: OLANZapine 5 MG RAPDIS TABLET PO PRN (08:47)
[2020-12-19] MEDS: CloZAPine 25 MG TABLET PO SCH ×2 (08:47→20:17)
[2020-12-19] MEDS: NICOTINE 21 MG/24 HOUR PATCH TD SCH (08:47)
[2020-12-19 16:15] VITALS: BP 135/77
[2020-12-19] MEDS: HydrOXYzine PAMOATE 50 MG CAPSULE PO PRN (16:16)
[2020-12-19] MEDS: OLANZapine 5 MG RAPDIS TABLET PO SCH (20:16)
[2020-12-19] MEDS: MELATONIN 5 MG TABLET PO SCH (20:16)
[2020-12-19] MEDS: ZOLPIDEM TARTRATE 10 MG TABLET PO PRN (20:17)
[2020-12-20 01:08] VITALS: BP 110/70
[2020-12-20] MEDS: OLANZapine 5 MG RAPDIS TABLET PO PRN ×2 (08:00→12:20)
[2020-12-20] MEDS: GABAPENTIN 300 MG CAPSULE PO PRN ×2 (08:00→12:20)
[2020-12-20] MEDS: HydrOXYzine PAMOATE 50 MG CAPSULE PO PRN (08:00)
[2020-12-20] MEDS: THIAMINE 100 MG TABLET PO SCH ×2 (08:32→16:22)
[2020-12-20] MEDS: MULTIVITAMINS WITH MINERALS, THERAPEUTIC TABLET PO SCH (08:32)
[2020-12-20] MEDS: OMEGA-3/DHA/EPA/FISH OIL 1,000 MG CAPSULE PO SCH (08:32)
[2020-12-20] MEDS: CloZAPine 25 MG TABLET PO SCH ×2 (08:32→20:45)
[2020-12-20] MEDS: NICOTINE 21 MG/24 HOUR PATCH TD SCH (08:32)
[2020-12-20] MEDS: NALTREXONE HCL 50 MG TABLET PO SCH (08:32)
[2020-12-20] MEDS: FOLIC ACID 1 MG TABLET PO SCH (08:32)
[2020-12-20 08:45] VITALS: BP 134/68
[2020-12-20] MEDS: ACETAMINOPHEN 325 MG TABLET PO PRN (09:57)
[2020-12-20 16:47] VITALS: BP 133/84
[2020-12-20] MEDS: OLANZapine 5 MG RAPDIS TABLET PO SCH (20:45)
[2020-12-20] MEDS: MELATONIN 5 MG TABLET PO SCH (20:45)
[2020-12-21 00:39] VITALS: BP 127/81
[2020-12-21] MEDS: GABAPENTIN 300 MG CAPSULE PO PRN ×2 (08:00→14:11)
[2020-12-21] MEDS: OLANZapine 5 MG RAPDIS TABLET PO PRN ×2 (08:00→14:11)
[2020-12-21 08:18] VITALS: BP 141/63
[2020-12-21] MEDS: NALTREXONE HCL 50 MG TABLET PO SCH (08:40)
[2020-12-21] MEDS: MULTIVITAMINS WITH MINERALS, THERAPEUTIC TABLET PO SCH (08:40)
[2020-12-21] MEDS: FOLIC ACID 1 MG TABLET PO SCH (08:40)
[2020-12-21] MEDS: OMEGA-3/DHA/EPA/FISH OIL 1,000 MG CAPSULE PO SCH (08:40)
[2020-12-21] MEDS: NICOTINE 21 MG/24 HOUR PATCH TD SCH (08:41)
[2020-12-21] MEDS: THIAMINE 100 MG TABLET PO SCH ×2 (08:41→16:10)
[2020-12-21] MEDS ORDERED: CloZAPine 25 MG TABLET PO SCH (09:00)
[2020-12-21 16:06] VITALS: BP 133/77
[2020-12-21] MEDS: OLANZapine 5 MG RAPDIS TABLET PO SCH (20:01)
[2020-12-21] MEDS: MELATONIN 5 MG TABLET PO SCH (20:01)
[2020-12-21] MEDS: ACETAMINOPHEN 325 MG TABLET PO PRN (20:27)
[2020-12-21] MEDS ORDERED: CloZAPine 100 MG TABLET PO SCH (21:00)
[2020-12-22 05:24] VITALS: BP 131/77
[2020-12-22 07:10] LABS: BASOPHILS % (AUTO) 0.8 % (0.0-2.0); EOSINOPHILS % (AUTO) 3.6 % (1.0-6.0); HEMATOCRIT 44.6 % (41-53); HEMOGLOBIN 14.8 g/dL (13.5-17.5); LYMPHOCYTES % (AUTO) 19.2 % (22.0-44.0); MEAN CORPUSCULAR HEMOGLOBIN 31.2 pg (26.0-34.0); MEAN CORPUSCULAR HGB CONC 33.3 G/dL (31.0-37.0); MEAN CORPUSCULAR VOLUME 94 fL (80-100); MONOCYTES # (AUTO) 1.7 K/uL (0.1-1.0); MONOCYTES % (AUTO) 11.2 % (2.0-9.0); NEUTROPHILS # (AUTO) 10.2 K/uL (1.8-7.7); NEUTROPHILS % (AUTO) 65.2 % (40.0-70.0); PLATELET COUNT (AUTO) 361 K/uL (150-450); RED BLOOD CELL COUNT(AUTO) 4.75 MIL/uL (4.50-5.90); RED CELL DISTRIBUTION WIDTH 12.7 % (11.5-14.5)
[2020-12-22 08:17] VITALS: BP 137/65
[2020-12-22] MEDS: NALTREXONE HCL 50 MG TABLET PO SCH (08:30)
[2020-12-22] MEDS: FOLIC ACID 1 MG TABLET PO SCH (08:30)
[2020-12-22] MEDS: NICOTINE 21 MG/24 HOUR PATCH TD SCH (08:30)
[2020-12-22] MEDS: THIAMINE 100 MG TABLET PO SCH ×2 (08:30→16:30)
[2020-12-22] MEDS: MULTIVITAMINS WITH MINERALS, THERAPEUTIC TABLET PO SCH (08:30)
[2020-12-22] MEDS: OMEGA-3/DHA/EPA/FISH OIL 1,000 MG CAPSULE PO SCH (08:30)
[2020-12-22] MEDS ORDERED: CloZAPine 25 MG TABLET PO SCH (09:00)
[2020-12-22] MEDS: HydrOXYzine PAMOATE 50 MG CAPSULE PO PRN ×3 (09:05→20:54)
[2020-12-22 16:12] VITALS: BP 140/67
[2020-12-22] MEDS: GABAPENTIN 300 MG CAPSULE PO PRN ×2 (16:30→20:54)
[2020-12-22] MEDS: OLANZapine 5 MG RAPDIS TABLET PO SCH (20:54)
[2020-12-22] MEDS: MELATONIN 5 MG TABLET PO SCH (20:55)
[2020-12-22] MEDS ORDERED: CloZAPine 100 MG TABLET PO SCH (21:00)
[2020-12-23 04:40] VITALS: BP 133/77
[2020-12-23] MEDS: GABAPENTIN 300 MG CAPSULE PO PRN (08:00)
[2020-12-23] MEDS: OLANZapine 5 MG RAPDIS TABLET PO PRN (08:00)
[2020-12-23 08:17] VITALS: BP 139/75
[2020-12-23] MEDS: OMEGA-3/DHA/EPA/FISH OIL 1,000 MG CAPSULE PO SCH (08:27)
[2020-12-23] MEDS: FOLIC ACID 1 MG TABLET PO SCH (08:27)
[2020-12-23] MEDS: MULTIVITAMINS WITH MINERALS, THERAPEUTIC TABLET PO SCH (08:27)
[2020-12-23] MEDS: THIAMINE 100 MG TABLET PO SCH (08:27)
[2020-12-23] MEDS: NALTREXONE HCL 50 MG TABLET PO SCH (08:27)
[2020-12-23] MEDS: NICOTINE 21 MG/24 HOUR PATCH TD SCH (08:27)
[2020-12-23] MEDS ORDERED: CloZAPine 25 MG TABLET PO SCH (09:00)
[2020-12-23] MEDS ORDERED: NALT50TA PO (09:18)
[2020-12-23] MEDS ORDERED: OMEG-135 PO (09:18)
[2020-12-23] MEDS ORDERED: MELA5TAB3 PO (09:18)
[2020-12-23] MEDS ORDERED: OLAN5TAB94 PO (09:18)
[2020-12-23] MEDS ORDERED: CloZAPine 100 MG TABLET PO SCH (21:00)
[2020-12-24] MEDS ORDERED: CloZAPine 100 MG TABLET PO SCH (09:00)
[2020-12-26] MEDS ORDERED: CloZAPine 25 MG TABLET PO SCH (09:00)
[2020-12-26] MEDS ORDERED: CloZAPine 100 MG TABLET PO SCH (21:00)
[2020-12-27] MEDS ORDERED: CloZAPine 25 MG TABLET PO SCH (09:00)
[2020-12-27] MEDS ORDERED: CloZAPine 100 MG TABLET PO SCH (21:00)
[2020-12-28] MEDS ORDERED: CloZAPine 100 MG TABLET PO SCH ×2 (09:00→21:00)
== END 2020-12-23 10:10 | disposition home or self-care (01) | DRG 750 ==
LOC: EMS 08:56 → B3A 19:55
PROVIDERS: ADMIT Psychiatry & Neurology Psychiatry; ATTEND Psychiatry & Neurology Psychiatry
DX: F25.0 Schizoaffective disorder, bipolar type (principal); Z91.19 Patient's noncompliance with other medical treatment and regimen; E66.01 Morbid (severe) obesity due to excess calories; F17.200 Nicotine dependence, unspecified, uncomplicated; F43.10 Post-traumatic stress disorder, unspecified; J44.9 Chronic obstructive pulmonary disease, unspecified; Z20.822 Contact with and (suspected) exposure to COVID-19; F41.9 Anxiety disorder, unspecified; Z68.37 Body mass index [BMI] 37.0-37.9, adult
CPT/HCPCS: 80053; 85025; 87081; 99285; A9575; G0480; G0481; J1200; J2060; J3230; J3420

== ENCOUNTER 2021-02-05 00:57 | Inpatient (IN) | payer MEDICAID, OTHER ==
[~2021-02-05] VITALS: Ht 167.6 cm; Wt 97.2 kg
[~2021-02-05 00:57] MED LIST changes: -DIVA-80 PO; -GABA-1201 PO; -MELA5TAB3 PO; +MELA5TAB40 PO; +OLAN5TAB94 PO
[2021-02-05 01:34] LABS: BASOPHILS % (AUTO) 1.3 % (0.0-2.0); EOSINOPHILS % (AUTO) 3.1 % (1.0-6.0); HEMATOCRIT 41.4 % (41-53); HEMOGLOBIN 14.1 g/dL (13.5-17.5); LYMPHOCYTES # (AUTO) 2.9 K/uL (1.0-4.8); LYMPHOCYTES % (AUTO) 22.6 % (22.0-44.0); MEAN CORPUSCULAR HEMOGLOBIN 31.2 pg (26.0-34.0); MEAN CORPUSCULAR HGB CONC 34.1 G/dL (31.0-37.0); MEAN CORPUSCULAR VOLUME 92 fL (80-100); MONOCYTES # (AUTO) 1.4 K/uL (0.1-1.0); MONOCYTES % (AUTO) 10.6 % (2.0-9.0); NEUTROPHILS # (AUTO) 8.1 K/uL (1.8-7.7); NEUTROPHILS % (AUTO) 62.4 % (40.0-70.0); PLATELET COUNT (AUTO) 383 K/uL (150-450); RED BLOOD CELL COUNT(AUTO) 4.51 MIL/uL (4.50-5.90)
[2021-02-05 01:38] LABS: COVID AG,FIA SOURCE NASOPHARYNGEAL
[2021-02-05 01:46] LABS: ANION GAP 7 mmol/L (8-16); CALCIUM, TOTAL 7.8 mg/dL (8.8-10.5); CARBON DIOXIDE 30 mmol/L (22-29); CHLORIDE 105 mmol/L (98-107); CREATININE 0.79 mg/dL (0.60-1.30); GLOMERULAR FILTR. RATE CALC > 60 mL/min (>60); GLUCOSE,RANDOM 102 mg/dL (70-110); POTASSIUM 3.4 mmol/L (3.5-5.1); SODIUM SERUM 142 mmol/L (136-145); UREA NITROGEN, BLOOD 12 mg/dL (7-18)
[2021-02-05 01:53] LABS: ALANINE AMINOTRANSFERASE 54 U/L (12-78); ALBUMIN 3.1 g/dL (3.4-5.0); ALKALINE PHOSPHATASE 73 U/L (46-116); ASPARTATE AMINOTRANSFERASE 50 U/L (15-37); BILIRUBIN,TOTAL 0.2 mg/dL (0.1-1.0); TOTAL PROTEIN, SERUM 6.5 g/dL (6.4-8.2)
[2021-02-05] MEDS ORDERED: POTASSIUM CHLORIDE 20 MEQ ER TABLET PO ONE (03:00)
[2021-02-05] MEDS ORDERED: ZOLPIDEM TARTRATE 10 MG TABLET PO PRN (06:00)
[2021-02-05 09:08] VITALS: BP 141/84
[2021-02-05 09:20] LABS: APPEARANCE,URINE CLEAR (CLEAR); BILIRUBIN,URINE NEGATIVE (NEGATIVE); GLUCOSE, URINE (UA) NEGATIVE (NEGATIVE); KETONES,URINE NEGATIVE (NEGATIVE); LEUKOCYTE ESTERASE ,URINE NEGATIVE (NEGATIVE); NITRATE,URINE NEGATIVE (NEGATIVE); OCCULT BLOOD,URINE NEGATIVE (NEGATIVE); PH,URINE 6.5 (5.0-8.0); PROTEIN,URINE NEGATIVE (NEGATIVE); UROBILINOGEN,URINE 0.2 mg/dL (<=1.0)
[2021-02-05 09:26] LABS: AMPHET/METH SCREEN,URINE NEGATIVE (NEGATIVE); BARBITURATE SCREEN, URINE NEGATIVE (NEGATIVE); BENZODIAZEPINES SCREEN,URINE NEGATIVE (NEGATIVE); CANNABINOID SCREEN,URINE NEGATIVE (NEGATIVE); COCAINE SCREEN,URINE NEGATIVE (NEGATIVE); METHADONE SCREEN, URINE NEGATIVE (NEGATIVE); OPIATE SCREEN,URINE NEGATIVE (NEGATIVE)
[2021-02-05 09:30] LABS: PHENCYCLIDINE SCREEN,URINE NEGATIVE (NEGATIVE)
[2021-02-05] MEDS: OLANZapine 5 MG TABLET PO SCH (12:12)
[2021-02-05] MEDS: NICOTINE 7 MG/24 HOUR PATCH TD SCH (13:19)
[2021-02-05] MEDS: NALTREXONE HCL 50 MG TABLET PO SCH (13:19)
[2021-02-05] MEDS: LORazepam 2 MG TABLET PO PRN (13:58)
[2021-02-05 15:04] VITALS: BP 130/72
[2021-02-05 16:17] VITALS: BP 123/79
[2021-02-05] MEDS: MELATONIN 5 MG TABLET PO SCH (20:20)
[2021-02-05] MEDS: OLANZapine 10 MG TABLET PO SCH ×2 (20:20→20:21)
[2021-02-06 01:19] LABS: CHOL/HDL RATIO 2.8 (4.2-7.3); CHOLESTEROL 135 mg/dL (131-200); HDL CHOLESTEROL 48 mg/dL (40-60); LDL CHOL (CALC.) 48 mg/dL (0-130); TRIGLYCERIDES 197 mg/dL (15-150)
[2021-02-06] MEDS: LORazepam 2 MG TABLET PO PRN ×3 (06:07→16:32)
[2021-02-06] MEDS: HALOPERIDOL 5 MG TABLET PO PRN ×3 (06:07→16:32)
[2021-02-06] MEDS: OLANZapine 5 MG TABLET PO SCH (08:15)
[2021-02-06] MEDS: NALTREXONE HCL 50 MG TABLET PO SCH (08:15)
[2021-02-06] MEDS: NICOTINE 7 MG/24 HOUR PATCH TD SCH (08:15)
[2021-02-06] MEDS ORDERED: LOPERAMIDE HCL 2 MG CAPSULE PO PRN (11:45)
[2021-02-06] MEDS ORDERED: ALBUTEROL SULFATE HFA 90 MCG/PUFF 8 GM INHALER IH PRN (11:45)
[2021-02-06] MEDS ORDERED: MAG HYDROX/AL HYDROX/SIMETH ES 30 ML SUSPENSION UDCUP PO PRN (11:45)
[2021-02-06] MEDS ORDERED: ACETAMINOPHEN 325 MG TABLET PO PRN (11:45)
[2021-02-06] MEDS ORDERED: PETROLATUM,WHITE 28 GM JELLY TP PRN (11:45)
[2021-02-06] MEDS ORDERED: IBUPROFEN 400 MG TABLET PO PRN (11:45)
[2021-02-06] MEDS ORDERED: GuaiFENesin/D-METHORPHAN [SUGAR-FREE] 200-20MG/10 ML SYRUP UDCUP PO PRN (11:45)
[2021-02-06] MEDS ORDERED: ONDANSETRON HCL 4 MG TABLET PO PRN (11:45)
[2021-02-06] MEDS ORDERED: CloNIDine HCL 0.1 MG TABLET PO PRN (11:45)
[2021-02-06] MEDS ORDERED: DOCUSATE SODIUM 100 MG CAPSULE PO PRN (11:45)
[2021-02-06] MEDS ORDERED: MAGNESIUM HYDROXIDE SUSPENSION 30 ML UDCUP PO PRN (11:45)
[2021-02-06] MEDS ORDERED: NICOTINE 14 MG/24 HOUR PATCH TD PRN (11:45)
[2021-02-06 16:22] VITALS: BP 131/82
[2021-02-06] MEDS: OLANZapine 10 MG TABLET PO SCH (21:00)
[2021-02-06] MEDS ORDERED: MELATONIN 5 MG TABLET PO SCH (21:00)
[2021-02-07] MEDS: LORazepam 2 MG TABLET PO PRN ×2 (00:03→07:56)
[2021-02-07] MEDS: HALOPERIDOL 5 MG TABLET PO PRN ×2 (00:03→07:56)
[2021-02-07] MEDS: NALTREXONE HCL 50 MG TABLET PO SCH (07:55)
[2021-02-07] MEDS: OLANZapine 5 MG TABLET PO SCH (07:56)
[2021-02-07] MEDS: NICOTINE 7 MG/24 HOUR PATCH TD SCH (08:01)
[2021-02-07 08:17] VITALS: BP 140/85
[2021-02-07] MEDS ORDERED: OMEGA-3/DHA/EPA/FISH OIL 1,000 MG CAPSULE PO SCH (09:00)
[2021-02-07] MEDS ORDERED: OLAN5TAB52 PO (12:12)
[2021-02-07] MEDS ORDERED: OLAN10TA74 PO (12:12)
== END 2021-02-07 14:25 | disposition left against medical advice (07) | DRG 750 ==
LOC: EMS 00:57 → 3EC 06:04
PROVIDERS: ADMIT Psychiatry & Neurology Child & Adolescent Psychiatry; ATTEND Psychiatry & Neurology Child & Adolescent Psychiatry
DX: F25.1 Schizoaffective disorder, depressive type (principal); R45.851 Suicidal ideations; Z91.14 Patient's other noncompliance with medication regimen; D72.829 Elevated white blood cell count, unspecified; E66.9 Obesity, unspecified; E87.6 Hypokalemia; F10.10 Alcohol abuse, uncomplicated; Z20.822 Contact with and (suspected) exposure to COVID-19; F19.10 Other psychoactive substance abuse, uncomplicated; F31.9 Bipolar disorder, unspecified; Z53.29 Procedure and treatment not carried out because of patient's decision for other reasons; F43.10 Post-traumatic stress disorder, unspecified; G47.00 Insomnia, unspecified; F17.210 Nicotine dependence, cigarettes, uncomplicated; F41.9 Anxiety disorder, unspecified; Z68.34 Body mass index [BMI] 34.0-34.9, adult; Z91.030 Bee allergy status; Z91.010 Allergy to peanuts; Z79.899 Other long term (current) drug therapy
CPT/HCPCS: 80053; 80061; 81003; 85025; 99285; G0480; Q9967

== ENCOUNTER 2021-02-13 00:43 | Inpatient (IN) | payer MEDICAID, OTHER ==
[~2021-02-13] VITALS: Ht 167.6 cm; Wt 99.6 kg
[~2021-02-13 00:43] MED LIST changes: -OLAN10TA26 PO; +OLAN10TA74 PO; +OLAN5TAB52 PO; -OLAN5TAB94 PO
[2021-02-13 01:05] LABS: BASOPHILS % (AUTO) 0.8 % (0.0-2.0); EOSINOPHILS % (AUTO) 3.1 % (1.0-6.0); HEMATOCRIT 43.5 % (41-53); HEMOGLOBIN 14.7 g/dL (13.5-17.5); LYMPHOCYTES # (AUTO) 2.8 K/uL (1.0-4.8); LYMPHOCYTES % (AUTO) 19.2 % (22.0-44.0); MEAN CORPUSCULAR HEMOGLOBIN 31.2 pg (26.0-34.0); MEAN CORPUSCULAR HGB CONC 33.9 G/dL (31.0-37.0); MEAN CORPUSCULAR VOLUME 92 fL (80-100); MONOCYTES # (AUTO) 1.2 K/uL (0.1-1.0); MONOCYTES % (AUTO) 8.4 % (2.0-9.0); NEUTROPHILS % (AUTO) 68.5 % (40.0-70.0); PLATELET COUNT (AUTO) 359 K/uL (150-450); RED BLOOD CELL COUNT(AUTO) 4.72 MIL/uL (4.50-5.90); RED CELL DISTRIBUTION WIDTH 12.8 % (11.5-14.5)
[2021-02-13 01:15] LABS: ANION GAP 8 mmol/L (8-16); CALCIUM, TOTAL 8.3 mg/dL (8.8-10.5); CARBON DIOXIDE 31 mmol/L (22-29); CHLORIDE 105 mmol/L (98-107); CREATININE 0.78 mg/dL (0.60-1.30); GLOMERULAR FILTR. RATE CALC > 60 mL/min (>60); GLUCOSE,RANDOM 96 mg/dL (70-110); POTASSIUM 3.9 mmol/L (3.5-5.1); SODIUM SERUM 144 mmol/L (136-145); UREA NITROGEN, BLOOD 12 mg/dL (7-18)
[2021-02-13] MEDS ORDERED: LORazepam 2 MG/ML VIAL IM ONE (01:15)
[2021-02-13] MEDS ORDERED: HALOPERIDOL LACTATE 5 MG/ML VIAL IM ONE (01:15)
[2021-02-13] MEDS ORDERED: DiphenhydrAMINE HCL 50 MG/ML VIAL IM ONE (01:15)
[2021-02-13 01:21] LABS: ALANINE AMINOTRANSFERASE 57 U/L (12-78); ALBUMIN 3.4 g/dL (3.4-5.0); ALKALINE PHOSPHATASE 74 U/L (46-116); ASPARTATE AMINOTRANSFERASE 70 U/L (15-37); BILIRUBIN,TOTAL 0.2 mg/dL (0.1-1.0)
[2021-02-13 01:26] LABS: AMPHET/METH SCREEN,URINE NEGATIVE (NEGATIVE); BARBITURATE SCREEN, URINE NEGATIVE (NEGATIVE); BENZODIAZEPINES SCREEN,URINE NEGATIVE (NEGATIVE); CANNABINOID SCREEN,URINE NEGATIVE (NEGATIVE); COCAINE SCREEN,URINE NEGATIVE (NEGATIVE); METHADONE SCREEN, URINE NEGATIVE (NEGATIVE); OPIATE SCREEN,URINE NEGATIVE (NEGATIVE); PHENCYCLIDINE SCREEN,URINE NEGATIVE (NEGATIVE)
[2021-02-13] MEDS ORDERED: CEPHALEXIN MONOHYDRATE 500 MG CAPSULE PO ONE ×2 (02:00→09:00)
[2021-02-13 02:01] LABS: COVID AG,FIA SOURCE NASOPHARYNGEAL
[2021-02-13] MEDS ORDERED: QUEtiapine FUMARATE 100 MG TABLET PO PRN (06:15)
[2021-02-13] MEDS ORDERED: INFLUENZA VIRUS VACCINE QVS 2021-22 (6MO+)/PF 60 MCG/0.5 ML SYRINGE IM. ONE (07:15)
[2021-02-13] MEDS: HALOPERIDOL 5 MG TABLET PO PRN ×3 (10:49→20:15)
[2021-02-13] MEDS: LORazepam 2 MG TABLET PO PRN ×3 (10:49→20:15)
[2021-02-13] MEDS ORDERED: HYDROCORTISONE 1% 30 GM OINTMENT TP SCH (11:00)
[2021-02-13] MEDS ORDERED: ALBUTEROL SULFATE HFA 90 MCG/PUFF 8 GM INHALER IH PRN (13:30)
[2021-02-13] MEDS ORDERED: LOPERAMIDE HCL 2 MG CAPSULE PO PRN (13:30)
[2021-02-13] MEDS ORDERED: PETROLATUM,WHITE 28 GM JELLY TP PRN (13:30)
[2021-02-13] MEDS ORDERED: DOCUSATE SODIUM 100 MG CAPSULE PO PRN (13:30)
[2021-02-13] MEDS ORDERED: ONDANSETRON HCL 4 MG TABLET PO PRN (13:30)
[2021-02-13] MEDS ORDERED: MAG HYDROX/AL HYDROX/SIMETH ES 30 ML SUSPENSION UDCUP PO PRN (13:30)
[2021-02-13] MEDS ORDERED: GuaiFENesin/D-METHORPHAN [SUGAR-FREE] 200-20MG/10 ML SYRUP UDCUP PO PRN (13:30)
[2021-02-13] MEDS ORDERED: IBUPROFEN 400 MG TABLET PO PRN (13:30)
[2021-02-13] MEDS ORDERED: MAGNESIUM HYDROXIDE SUSPENSION 30 ML UDCUP PO PRN (13:30)
[2021-02-13] MEDS ORDERED: ACETAMINOPHEN 325 MG TABLET PO PRN (13:30)
[2021-02-13] MEDS ORDERED: CloNIDine HCL 0.1 MG TABLET PO PRN (13:30)
[2021-02-13 16:17] VITALS: BP 151/92
[2021-02-13] MEDS: SULFAMETHOX/TRIMETH DS 800-160 MG/TABLET PO SCH (16:17)
[2021-02-13] MEDS: CEPHALEXIN MONOHYDRATE 500 MG CAPSULE PO SCH (16:18)
[2021-02-13] MEDS: BACITRACIN 28 GM OINTMENT TP SCH (19:44)
[2021-02-13] MEDS: QUEtiapine FUMARATE 200 MG TABLET PO SCH (20:18)
[2021-02-14] MEDS: LORazepam 2 MG TABLET PO PRN ×4 (00:24→20:30)
[2021-02-14] MEDS: ZOLPIDEM TARTRATE 10 MG TABLET PO PRN (00:24)
[2021-02-14 08:00] VITALS: BP 142/78
[2021-02-14] MEDS: CEPHALEXIN MONOHYDRATE 500 MG CAPSULE PO SCH ×3 (08:36→15:51)
[2021-02-14] MEDS: SULFAMETHOX/TRIMETH DS 800-160 MG/TABLET PO SCH ×2 (08:36→15:51)
[2021-02-14] MEDS: QUEtiapine FUMARATE 200 MG TABLET PO SCH ×2 (08:36→20:30)
[2021-02-14] MEDS: HALOPERIDOL 5 MG TABLET PO PRN ×3 (08:42→20:30)
[2021-02-14] MEDS: BACITRACIN 28 GM OINTMENT TP SCH ×2 (09:00→17:00)
[2021-02-14] MEDS ORDERED: LORazepam 2 MG/ML VIAL IM ONE (11:00)
[2021-02-14] MEDS ORDERED: HALOPERIDOL LACTATE 5 MG/ML VIAL IM ONE (11:00)
[2021-02-14] MEDS ORDERED: DiphenhydrAMINE HCL 50 MG/ML VIAL IM ONE (11:00)
[2021-02-14] MEDS ORDERED: LORazepam 2 MG/ML VIAL ONE (11:04)
[2021-02-14] MEDS ORDERED: HALOPERIDOL LACTATE 5 MG/ML VIAL ONE (11:04)
[2021-02-14] MEDS ORDERED: DiphenhydrAMINE HCL 50 MG/ML VIAL ONE (11:04)
[2021-02-14 16:00] VITALS: BP 140/80
[2021-02-14 16:07] VITALS: BP 140/80
[2021-02-15] MEDS: ZOLPIDEM TARTRATE 10 MG TABLET PO PRN ×2 (02:10→20:04)
[2021-02-15] MEDS: HALOPERIDOL 5 MG TABLET PO PRN ×3 (02:10→16:10)
[2021-02-15] MEDS: CEPHALEXIN MONOHYDRATE 500 MG CAPSULE PO SCH ×3 (08:03→16:10)
[2021-02-15] MEDS: SULFAMETHOX/TRIMETH DS 800-160 MG/TABLET PO SCH ×2 (08:03→16:10)
[2021-02-15] MEDS: LORazepam 2 MG TABLET PO PRN ×2 (08:03→16:10)
[2021-02-15] MEDS: QUEtiapine FUMARATE 200 MG TABLET PO SCH ×2 (08:03→20:04)
[2021-02-15] MEDS: BACITRACIN 28 GM OINTMENT TP SCH ×2 (08:07→16:11)
[2021-02-16] MEDS: SULFAMETHOX/TRIMETH DS 800-160 MG/TABLET PO SCH ×2 (07:38→16:02)
[2021-02-16] MEDS: CEPHALEXIN MONOHYDRATE 500 MG CAPSULE PO SCH ×3 (07:38→16:02)
[2021-02-16] MEDS: QUEtiapine FUMARATE 200 MG TABLET PO SCH ×2 (07:38→21:11)
[2021-02-16] MEDS: BACITRACIN 28 GM OINTMENT TP SCH ×2 (07:38→16:03)
[2021-02-16] MEDS: NICOTINE 14 MG/24 HOUR PATCH TD PRN (07:39)
[2021-02-16] MEDS: HALOPERIDOL 5 MG TABLET PO PRN ×3 (07:41→18:02)
[2021-02-16] MEDS: LORazepam 2 MG TABLET PO PRN ×3 (07:41→18:02)
[2021-02-16 09:11] VITALS: BP 137/84
[2021-02-16 16:07] VITALS: BP 153/106
[2021-02-16] MEDS: ZOLPIDEM TARTRATE 10 MG TABLET PO PRN (21:20)
[2021-02-17] MEDS: CEPHALEXIN MONOHYDRATE 500 MG CAPSULE PO SCH ×3 (07:54→16:16)
[2021-02-17] MEDS: QUEtiapine FUMARATE 200 MG TABLET PO SCH (07:54)
[2021-02-17] MEDS: LORazepam 2 MG TABLET PO PRN ×2 (07:54→11:54)
[2021-02-17] MEDS: SULFAMETHOX/TRIMETH DS 800-160 MG/TABLET PO SCH ×2 (07:54→16:17)
[2021-02-17] MEDS: HALOPERIDOL 5 MG TABLET PO PRN ×2 (07:54→11:54)
[2021-02-17] MEDS: NICOTINE 14 MG/24 HOUR PATCH TD PRN (07:56)
[2021-02-17 08:00] VITALS: BP 135/71
[2021-02-17] MEDS: BACITRACIN 28 GM OINTMENT TP SCH ×2 (10:41→16:17)
[2021-02-17] MEDS ORDERED: QUET200T PO (13:08)
[2021-02-17] MEDS ORDERED: CEPH500C3 PO (13:43)
[2021-02-17] MEDS ORDERED: SULF-261 PO (13:44)
== END 2021-02-17 16:12 | disposition home or self-care (01) | DRG 750 ==
LOC: EMS 00:46 → 3EC 02:51
PROVIDERS: ATTEND Psychiatry & Neurology Child & Adolescent Psychiatry
DX: F25.1 Schizoaffective disorder, depressive type (principal); R45.851 Suicidal ideations; E11.9 Type 2 diabetes mellitus without complications; D72.829 Elevated white blood cell count, unspecified; E66.9 Obesity, unspecified; E78.5 Hyperlipidemia, unspecified; F43.10 Post-traumatic stress disorder, unspecified; Z20.822 Contact with and (suspected) exposure to COVID-19; F25.0 Schizoaffective disorder, bipolar type; L73.9 Follicular disorder, unspecified; Z59.00 Homelessness unspecified; Z87.891 Personal history of nicotine dependence; Z68.35 Body mass index [BMI] 35.0-35.9, adult
CPT/HCPCS: 80053; 80061; 85025; 99291; G0480; J1200; J1630; J2060; J3535

== ENCOUNTER 2021-02-18 14:13 | Emergency (ER) | payer MEDICAID, OTHER ==
[~2021-02-18] VITALS: Ht 167.6 cm; Wt 99.5 kg
[~2021-02-18 14:13] MED LIST changes: +CEPH500C3 PO; +QUET200T PO; +SULF-261 PO
[2021-02-18] MEDS ORDERED: LORazepam 2 MG/ML VIAL IM ONE (15:45)
[2021-02-18] MEDS ORDERED: HALOPERIDOL LACTATE 5 MG/ML VIAL IM ONE (15:45)
[2021-02-18] MEDS ORDERED: DiphenhydrAMINE HCL 50 MG/ML VIAL IM ONE (15:45)
[2021-02-18 16:32] LABS: BASOPHILS % (AUTO) 0.6 % (0.0-2.0); EOSINOPHILS % (AUTO) 1.8 % (1.0-6.0); HEMOGLOBIN 14.7 g/dL (13.5-17.5); LYMPHOCYTES # (AUTO) 1.8 K/uL (1.0-4.8); MEAN CORPUSCULAR HGB CONC 33.5 G/dL (31.0-37.0); MEAN CORPUSCULAR VOLUME 93 fL (80-100); MONOCYTES # (AUTO) 1.3 K/uL (0.1-1.0); NEUTROPHILS # (AUTO) 11.4 K/uL (1.8-7.7); NEUTROPHILS % (AUTO) 76.6 % (40.0-70.0); PLATELET COUNT (AUTO) 381 K/uL (150-450); RED BLOOD CELL COUNT(AUTO) 4.76 MIL/uL (4.50-5.90); RED CELL DISTRIBUTION WIDTH 13.3 % (11.5-14.5)
[2021-02-18 16:45] LABS: ANION GAP 7 mmol/L (8-16); CALCIUM, TOTAL 8.6 mg/dL (8.8-10.5); CARBON DIOXIDE 31 mmol/L (22-29); CHLORIDE 99 mmol/L (98-107); CREATININE 0.87 mg/dL (0.60-1.30); GLOMERULAR FILTR. RATE CALC > 60 mL/min (>60); GLUCOSE,RANDOM 99 mg/dL (70-110); POTASSIUM 3.9 mmol/L (3.5-5.1); SODIUM SERUM 137 mmol/L (136-145); UREA NITROGEN, BLOOD 8 mg/dL (7-18)
[2021-02-18 16:52] LABS: ALANINE AMINOTRANSFERASE 59 U/L (12-78); ALBUMIN 3.6 g/dL (3.4-5.0); ALKALINE PHOSPHATASE 80 U/L (46-116); ASPARTATE AMINOTRANSFERASE 83 U/L (15-37); BILIRUBIN,TOTAL 0.3 mg/dL (0.1-1.0); TOTAL PROTEIN, SERUM 7.6 g/dL (6.4-8.2)
[2021-02-18 19:41] VITALS: BP 133/75
== END 2021-02-18 22:09 | disposition home or self-care (01) ==
LOC: EMS 14:15
DX: F25.9 Schizoaffective disorder, unspecified (principal); F31.9 Bipolar disorder, unspecified; D72.829 Elevated white blood cell count, unspecified; F17.210 Nicotine dependence, cigarettes, uncomplicated; F41.9 Anxiety disorder, unspecified; Z91.030 Bee allergy status; Z91.010 Allergy to peanuts
CPT/HCPCS: 36415; 80053; 85025; 96372; 99291; G0480; J1200; J1630; J2060

== ENCOUNTER 2021-02-28 00:19 | Inpatient (IN) | payer MEDICAID, OTHER ==
[~2021-02-28] VITALS: Ht 170.2 cm; Wt 100.0 kg
[~2021-02-28 00:19] MED LIST changes: -CEPH500C3 PO; -MELA5TAB40 PO; -NALT50TA PO; -OLAN10TA74 PO; -OLAN5TAB52 PO; -OMEG-135 PO; -SULF-261 PO
[2021-02-28 00:54] LABS: COVID AG,FIA SOURCE NASOPHARYNGEAL
[2021-02-28 00:56] LABS: BASOPHILS % (AUTO) 0.6 % (0.0-2.0); EOSINOPHILS % (AUTO) 0.9 % (1.0-6.0); HEMATOCRIT 44.7 % (41-53); HEMOGLOBIN 14.9 g/dL (13.5-17.5); LYMPHOCYTES # (AUTO) 2.2 K/uL (1.0-4.8); LYMPHOCYTES % (AUTO) 10.6 % (22.0-44.0); MEAN CORPUSCULAR HGB CONC 33.4 G/dL (31.0-37.0); MEAN CORPUSCULAR VOLUME 93 fL (80-100); MONOCYTES # (AUTO) 1.5 K/uL (0.1-1.0); MONOCYTES % (AUTO) 7.5 % (2.0-9.0); NEUTROPHILS # (AUTO) 16.6 K/uL (1.8-7.7); NEUTROPHILS % (AUTO) 80.4 % (40.0-70.0); PLATELET COUNT (AUTO) 397 K/uL (150-450); RED BLOOD CELL COUNT(AUTO) 4.81 MIL/uL (4.50-5.90); RED CELL DISTRIBUTION WIDTH 12.8 % (11.5-14.5)
[2021-02-28 01:03] LABS: ANION GAP 8 mmol/L (8-16); CALCIUM, TOTAL 8.7 mg/dL (8.8-10.5); CARBON DIOXIDE 28 mmol/L (22-29); CHLORIDE 102 mmol/L (98-107); CREATININE 0.76 mg/dL (0.60-1.30); GLOMERULAR FILTR. RATE CALC > 60 mL/min (>60); GLUCOSE,RANDOM 116 mg/dL (70-110); SODIUM SERUM 138 mmol/L (136-145); UREA NITROGEN, BLOOD 8 mg/dL (7-18)
[2021-02-28 01:08] LABS: ALANINE AMINOTRANSFERASE 74 U/L (12-78); ALBUMIN 3.6 g/dL (3.4-5.0); ALKALINE PHOSPHATASE 77 U/L (46-116); ASPARTATE AMINOTRANSFERASE 81 U/L (15-37); BILIRUBIN,TOTAL 0.5 mg/dL (0.1-1.0); TOTAL PROTEIN, SERUM 7.7 g/dL (6.4-8.2)
[2021-02-28 01:55] LABS: AMPHET/METH SCREEN,URINE NEGATIVE (NEGATIVE); BARBITURATE SCREEN, URINE NEGATIVE (NEGATIVE); BENZODIAZEPINES SCREEN,URINE NEGATIVE (NEGATIVE); CANNABINOID SCREEN,URINE NEGATIVE (NEGATIVE); COCAINE SCREEN,URINE NEGATIVE (NEGATIVE); METHADONE SCREEN, URINE NEGATIVE (NEGATIVE); OPIATE SCREEN,URINE NEGATIVE (NEGATIVE); PHENCYCLIDINE SCREEN,URINE NEGATIVE (NEGATIVE)
[2021-02-28] MEDS ORDERED: ChlorproMAZINE HCL 100 MG TABLET PO PRN ×4 (02:15→11:00)
[2021-02-28] MEDS ORDERED: ZOLPIDEM TARTRATE 10 MG TABLET PO PRN ×2 (02:15→11:00)
[2021-02-28 04:34] LABS: APPEARANCE,URINE CLEAR (CLEAR); BILIRUBIN,URINE NEGATIVE (NEGATIVE); GLUCOSE, URINE (UA) NEGATIVE (NEGATIVE); KETONES,URINE 15 mg/dL (NEGATIVE); LEUKOCYTE ESTERASE ,URINE NEGATIVE (NEGATIVE); NITRATE,URINE NEGATIVE (NEGATIVE); OCCULT BLOOD,URINE NEGATIVE (NEGATIVE); PROTEIN,URINE NEGATIVE (NEGATIVE); UROBILINOGEN,URINE 0.2 mg/dL (<=1.0)
[2021-02-28] MEDS: LORazepam 1 MG TABLET PO PRN ×2 (10:26→15:50)
[2021-02-28] MEDS ORDERED: LORazepam 1 MG TABLET PO PRN (11:00)
[2021-02-28] MEDS ORDERED: ZOLPIDEM TARTRATE 5 MG TABLET PO PRN (11:15)
[2021-02-28] MEDS: ChlorproMAZINE HCL 100 MG TABLET PO PRN (15:49)
[2021-02-28 16:15] VITALS: BP 120/65
[2021-02-28] MEDS: BACITRACIN 28 GM OINTMENT TP SCH (17:05)
[2021-02-28] MEDS ORDERED: ONDANSETRON HCL 4 MG TABLET PO PRN (17:15)
[2021-03-01 01:11] VITALS: BP 137/82
[2021-03-01] MEDS ORDERED: MAG HYDROX/AL HYDROX/SIMETH ES 30 ML SUSPENSION UDCUP PO PRN (06:45)
[2021-03-01] MEDS ORDERED: DOCUSATE SODIUM 100 MG CAPSULE PO PRN (06:45)
[2021-03-01] MEDS ORDERED: GuaiFENesin/D-METHORPHAN [SUGAR-FREE] 200-20MG/10 ML SYRUP UDCUP PO PRN (06:45)
[2021-03-01] MEDS ORDERED: ONDANSETRON HCL 4 MG TABLET PO PRN (06:45)
[2021-03-01] MEDS ORDERED: LOPERAMIDE HCL 2 MG CAPSULE PO PRN (06:45)
[2021-03-01] MEDS ORDERED: PETROLATUM,WHITE 28 GM JELLY TP PRN (06:45)
[2021-03-01] MEDS ORDERED: MAGNESIUM HYDROXIDE SUSPENSION 30 ML UDCUP PO PRN (06:45)
[2021-03-01] MEDS ORDERED: ALBUTEROL SULFATE HFA 90 MCG/PUFF 8 GM INHALER IH PRN (06:45)
[2021-03-01] MEDS ORDERED: CloNIDine HCL 0.1 MG TABLET PO PRN (06:45)
[2021-03-01] MEDS ORDERED: NICOTINE 14 MG/24 HOUR PATCH TD PRN (06:45)
[2021-03-01] MEDS ORDERED: ACETAMINOPHEN 325 MG TABLET PO PRN (06:45)
[2021-03-01] MEDS ORDERED: IBUPROFEN 400 MG TABLET PO PRN (06:45)
[2021-03-01] MEDS: BACITRACIN 28 GM OINTMENT TP SCH ×2 (08:02→16:19)
[2021-03-01] MEDS: LORazepam 1 MG TABLET PO PRN ×2 (08:02→12:43)
[2021-03-01 08:23] VITALS: BP 121/81
[2021-03-01] MEDS: ChlorproMAZINE HCL 100 MG TABLET PO PRN (09:28)
[2021-03-01 16:16] VITALS: BP 153/85
[2021-03-01] MEDS: CEPHALEXIN MONOHYDRATE 500 MG CAPSULE PO SCH ×2 (16:19→23:42)
[2021-03-01] MEDS: SULFAMETHOX/TRIMETH DS 800-160 MG/TABLET PO SCH (16:19)
[2021-03-01] MEDS: QUEtiapine FUMARATE 200 MG TABLET PO SCH (20:16)
[2021-03-02 05:08] VITALS: BP 128/82
[2021-03-02] MEDS: LORazepam 1 MG TABLET PO PRN ×2 (06:01→09:55)
[2021-03-02 07:32] LABS: BASOPHILS % (AUTO) 0.9 % (0.0-2.0); EOSINOPHILS % (AUTO) 3.9 % (1.0-6.0); HEMATOCRIT 43.3 % (41-53); HEMOGLOBIN 14.3 g/dL (13.5-17.5); LYMPHOCYTES # (AUTO) 2.8 K/uL (1.0-4.8); LYMPHOCYTES % (AUTO) 24.8 % (22.0-44.0); MEAN CORPUSCULAR HEMOGLOBIN 30.9 pg (26.0-34.0); MEAN CORPUSCULAR VOLUME 94 fL (80-100); MONOCYTES # (AUTO) 1.1 K/uL (0.1-1.0); NEUTROPHILS # (AUTO) 6.7 K/uL (1.8-7.7); NEUTROPHILS % (AUTO) 60.4 % (40.0-70.0); PLATELET COUNT (AUTO) 369 K/uL (150-450); RED BLOOD CELL COUNT(AUTO) 4.62 MIL/uL (4.50-5.90)
[2021-03-02 08:42] VITALS: BP 127/65
[2021-03-02] MEDS: CEPHALEXIN MONOHYDRATE 500 MG CAPSULE PO SCH (08:54)
[2021-03-02] MEDS: SULFAMETHOX/TRIMETH DS 800-160 MG/TABLET PO SCH (08:54)
[2021-03-02] MEDS: QUEtiapine FUMARATE 200 MG TABLET PO SCH (08:54)
[2021-03-02] MEDS: BACITRACIN 28 GM OINTMENT TP SCH (08:54)
[2021-03-02] MEDS: ChlorproMAZINE HCL 100 MG TABLET PO PRN (10:45)
[2021-03-02] MEDS ORDERED: CEPH500C3 PO (15:51)
[2021-03-02] MEDS ORDERED: SULF-261 PO (15:55)
[2021-03-02 16:16] VITALS: BP 130/75
== END 2021-03-02 14:00 | disposition home or self-care (01) | DRG 750 ==
LOC: EMS 00:21 → B3A 09:57 → EMS 10:45
PROVIDERS: ADMIT Psychiatry & Neurology Psychiatry; ATTEND Psychiatry & Neurology Child & Adolescent Psychiatry
DX: F25.1 Schizoaffective disorder, depressive type (principal); R45.851 Suicidal ideations; Z59.00 Homelessness unspecified; D72.829 Elevated white blood cell count, unspecified; E66.9 Obesity, unspecified; F32.A Depression, unspecified; F41.9 Anxiety disorder, unspecified; F15.90 Other stimulant use, unspecified, uncomplicated; R74.01 Elevation of levels of liver transaminase levels; F43.10 Post-traumatic stress disorder, unspecified; L02.92 Furuncle, unspecified; Z20.822 Contact with and (suspected) exposure to COVID-19; F17.210 Nicotine dependence, cigarettes, uncomplicated; Z91.14 Patient's other noncompliance with medication regimen; Z91.030 Bee allergy status; Z91.010 Allergy to peanuts; Z79.899 Other long term (current) drug therapy; Z68.34 Body mass index [BMI] 34.0-34.9, adult
CPT/HCPCS: 80053; 81003; 85025; 99285; G0480; Q0162

== ENCOUNTER 2021-03-10 15:30 | Emergency (ER) | payer MEDICAID, OTHER ==
[~2021-03-10] VITALS: Ht 170.2 cm; Wt 100.0 kg
[~2021-03-10 15:30] MED LIST changes: +CEPH500C3 PO; +SULF-261 PO
[2021-03-10 17:23] LABS: BASOPHILS % (AUTO) 0.8 % (0.0-2.0); EOSINOPHILS % (AUTO) 3.9 % (1.0-6.0); HEMATOCRIT 38.6 % (41-53); HEMOGLOBIN 12.9 g/dL (13.5-17.5); LYMPHOCYTES # (AUTO) 2.9 K/uL (1.0-4.8); LYMPHOCYTES % (AUTO) 21.4 % (22.0-44.0); MEAN CORPUSCULAR HEMOGLOBIN 30.9 pg (26.0-34.0); MEAN CORPUSCULAR HGB CONC 33.5 G/dL (31.0-37.0); MEAN CORPUSCULAR VOLUME 92 fL (80-100); MONOCYTES # (AUTO) 1.1 K/uL (0.1-1.0); MONOCYTES % (AUTO) 8.3 % (2.0-9.0); NEUTROPHILS # (AUTO) 8.8 K/uL (1.8-7.7); NEUTROPHILS % (AUTO) 65.6 % (40.0-70.0); PLATELET COUNT (AUTO) 421 K/uL (150-450); RED BLOOD CELL COUNT(AUTO) 4.19 MIL/uL (4.50-5.90); RED CELL DISTRIBUTION WIDTH 12.8 % (11.5-14.5)
[2021-03-10 17:37] LABS: ANION GAP 6 mmol/L (8-16); CALCIUM, TOTAL 8.6 mg/dL (8.8-10.5); CARBON DIOXIDE 30 mmol/L (22-29); CHLORIDE 102 mmol/L (98-107); CREATININE 0.98 mg/dL (0.60-1.30); GLOMERULAR FILTR. RATE CALC > 60 mL/min (>60); GLUCOSE,RANDOM 112 mg/dL (70-110); POTASSIUM 3.6 mmol/L (3.5-5.1); SODIUM SERUM 138 mmol/L (136-145); UREA NITROGEN, BLOOD 5 mg/dL (7-18)
[2021-03-10 17:42] LABS: ALANINE AMINOTRANSFERASE 53 U/L (12-78); ALKALINE PHOSPHATASE 62 U/L (46-116); ASPARTATE AMINOTRANSFERASE 33 U/L (15-37); BILIRUBIN,TOTAL 0.2 mg/dL (0.1-1.0); TOTAL PROTEIN, SERUM 7.3 g/dL (6.4-8.2)
[2021-03-10] MEDS ORDERED: LORazepam 1 MG TABLET PO ONE (17:45)
[2021-03-10] MEDS ORDERED: OLANZapine 5 MG TABLET PO ONE (17:45)
[2021-03-10 17:58] VITALS: BP 131/74
== END 2021-03-10 18:01 | disposition home or self-care (01) ==
LOC: EMS 15:35
DX: F25.9 Schizoaffective disorder, unspecified (principal); F17.210 Nicotine dependence, cigarettes, uncomplicated; F15.90 Other stimulant use, unspecified, uncomplicated
CPT/HCPCS: 36415; 80053; 85025; 99285; G0480

== ENCOUNTER 2021-03-16 13:10 | Inpatient (IN) | payer MEDICAID ==
[~2021-03-16] VITALS: Ht 170.2 cm; Wt 98.8 kg
[2021-03-16] MEDS ORDERED: LORazepam 2 MG/ML VIAL ONE (14:13)
[2021-03-16] MEDS ORDERED: DiphenhydrAMINE HCL 50 MG/ML VIAL ONE (14:14)
[2021-03-16] MEDS ORDERED: HALOPERIDOL LACTATE 5 MG/ML VIAL ONE (14:14)
[2021-03-16] MEDS ORDERED: HALOPERIDOL LACTATE 5 MG/ML VIAL IM ONE (14:15)
[2021-03-16] MEDS ORDERED: LORazepam 2 MG/ML VIAL IM ONE (14:15)
[2021-03-16] MEDS ORDERED: DiphenhydrAMINE HCL 50 MG/ML VIAL IM ONE (14:15)
[2021-03-16 14:55] LABS: COVID AG,FIA SOURCE NASOPHARYNGEAL
[2021-03-16 15:01] LABS: BASOPHILS % (AUTO) 0.8 % (0.0-2.0); EOSINOPHILS % (AUTO) 3.2 % (1.0-6.0); HEMOGLOBIN 12.8 g/dL (13.5-17.5); LYMPHOCYTES # (AUTO) 2.6 K/uL (1.0-4.8); LYMPHOCYTES % (AUTO) 21.5 % (22.0-44.0); MEAN CORPUSCULAR HEMOGLOBIN 30.6 pg (26.0-34.0); MEAN CORPUSCULAR HGB CONC 32.7 G/dL (31.0-37.0); MEAN CORPUSCULAR VOLUME 93 fL (80-100); MONOCYTES # (AUTO) 1.1 K/uL (0.1-1.0); MONOCYTES % (AUTO) 9.4 % (2.0-9.0); NEUTROPHILS # (AUTO) 7.8 K/uL (1.8-7.7); NEUTROPHILS % (AUTO) 65.1 % (40.0-70.0); PLATELET COUNT (AUTO) 478 K/uL (150-450); RED BLOOD CELL COUNT(AUTO) 4.17 MIL/uL (4.50-5.90); RED CELL DISTRIBUTION WIDTH 13.2 % (11.5-14.5)
[2021-03-16 15:15] LABS: ANION GAP 9 mmol/L (8-16); CALCIUM, TOTAL 8.5 mg/dL (8.8-10.5); CARBON DIOXIDE 26 mmol/L (22-29); CHLORIDE 104 mmol/L (98-107); GLOMERULAR FILTR. RATE CALC > 60 mL/min (>60); GLUCOSE,RANDOM 88 mg/dL (70-110); POTASSIUM 3.8 mmol/L (3.5-5.1); SODIUM SERUM 139 mmol/L (136-145); UREA NITROGEN, BLOOD 12 mg/dL (7-18)
[2021-03-16 15:21] LABS: ALANINE AMINOTRANSFERASE 67 U/L (12-78); ALBUMIN 3.1 g/dL (3.4-5.0); ALKALINE PHOSPHATASE 66 U/L (46-116); ASPARTATE AMINOTRANSFERASE 44 U/L (15-37); BILIRUBIN,TOTAL 0.1 mg/dL (0.1-1.0); TOTAL PROTEIN, SERUM 7.3 g/dL (6.4-8.2)
[2021-03-16 21:28] VITALS: BP 145/74
[2021-03-16] MEDS: CEPHALEXIN MONOHYDRATE 500 MG CAPSULE PO SCH (22:58)
[2021-03-17] MEDS ORDERED: ALBUTEROL SULFATE HFA 90 MCG/PUFF 8 GM INHALER IH PRN (05:45)
[2021-03-17] MEDS ORDERED: MAGNESIUM HYDROXIDE SUSPENSION 30 ML UDCUP PO PRN (05:45)
[2021-03-17] MEDS ORDERED: LOPERAMIDE HCL 2 MG CAPSULE PO PRN (05:45)
[2021-03-17] MEDS ORDERED: IBUPROFEN 400 MG TABLET PO PRN (05:45)
[2021-03-17] MEDS ORDERED: ACETAMINOPHEN 325 MG TABLET PO PRN (05:45)
[2021-03-17] MEDS ORDERED: PETROLATUM,WHITE 28 GM JELLY TP PRN (05:45)
[2021-03-17] MEDS ORDERED: ONDANSETRON HCL 4 MG TABLET PO PRN (05:45)
[2021-03-17] MEDS ORDERED: CloNIDine HCL 0.1 MG TABLET PO PRN (05:45)
[2021-03-17] MEDS ORDERED: DOCUSATE SODIUM 100 MG CAPSULE PO PRN (05:45)
[2021-03-17] MEDS ORDERED: MAG HYDROX/AL HYDROX/SIMETH ES 30 ML SUSPENSION UDCUP PO PRN (05:45)
[2021-03-17] MEDS: LORazepam 2 MG TABLET PO PRN (07:45)
[2021-03-17] MEDS: CEPHALEXIN MONOHYDRATE 500 MG CAPSULE PO SCH ×3 (07:45→16:45)
[2021-03-17] MEDS: HALOPERIDOL 5 MG TABLET PO PRN (07:45)
[2021-03-17] MEDS: NICOTINE 14 MG/24 HOUR PATCH TD PRN (07:47)
[2021-03-17 09:42] VITALS: BP 153/83
[2021-03-17] MEDS ORDERED: HALOPERIDOL LACTATE 5 MG/ML VIAL ONE (12:36)
[2021-03-17] MEDS ORDERED: LORazepam 2 MG/ML VIAL ONE (12:36)
[2021-03-17] MEDS ORDERED: ZIPRASIDONE MESYLATE 20 MG/VIAL IM ONE (12:39)
[2021-03-17] MEDS ORDERED: ZIPRASIDONE MESYLATE 20 MG/VIAL IM PRN (12:45)
[2021-03-17] MEDS ORDERED: DiphenhydrAMINE HCL 50 MG/ML VIAL IM ONE (12:45)
[2021-03-17] MEDS ORDERED: LORazepam 2 MG/ML VIAL IM ONE (12:45)
[2021-03-17 18:00] VITALS: BP 113/65
[2021-03-17] MEDS: QUEtiapine FUMARATE 300 MG TABLET PO SCH (20:27)
[2021-03-17] MEDS: ZOLPIDEM TARTRATE 10 MG TABLET PO PRN (20:27)
[2021-03-18] MEDS ORDERED: DiphenhydrAMINE HCL 50 MG/ML VIAL IM ONE ×3 (00:15→10:45)
[2021-03-18] MEDS: LORazepam 2 MG TABLET PO PRN ×4 (04:19→19:29)
[2021-03-18] MEDS: HALOPERIDOL 5 MG TABLET PO PRN ×4 (04:19→19:29)
[2021-03-18] MEDS: CEPHALEXIN MONOHYDRATE 500 MG CAPSULE PO SCH ×3 (08:43→16:46)
[2021-03-18] MEDS: QUEtiapine FUMARATE 300 MG TABLET PO SCH ×2 (08:43→20:40)
[2021-03-18 08:44] VITALS: BP 139/82
[2021-03-18] MEDS ORDERED: HALOPERIDOL LACTATE 5 MG/ML VIAL IM ONE ×2 (10:45)
[2021-03-18] MEDS ORDERED: LORazepam 2 MG/ML VIAL IM ONE ×2 (10:45)
[2021-03-19] MEDS: HALOPERIDOL 5 MG TABLET PO PRN ×3 (07:43→17:01)
[2021-03-19] MEDS: LORazepam 2 MG TABLET PO PRN ×3 (07:43→17:01)
[2021-03-19] MEDS: QUEtiapine FUMARATE 300 MG TABLET PO SCH ×2 (08:20→21:00)
[2021-03-19] MEDS: NICOTINE 14 MG/24 HOUR PATCH TD PRN (08:20)
[2021-03-19] MEDS: CEPHALEXIN MONOHYDRATE 500 MG CAPSULE PO SCH ×3 (08:20→16:38)
[2021-03-19 09:19] VITALS: BP 156/90
[2021-03-19 18:02] VITALS: BP 158/76
[2021-03-20] MEDS: CEPHALEXIN MONOHYDRATE 500 MG CAPSULE PO SCH ×3 (07:57→16:33)
[2021-03-20] MEDS: QUEtiapine FUMARATE 300 MG TABLET PO SCH ×2 (07:57→20:11)
[2021-03-20] MEDS: HALOPERIDOL 5 MG TABLET PO PRN ×3 (07:58→16:46)
[2021-03-20] MEDS: LORazepam 2 MG TABLET PO PRN ×3 (07:58→16:46)
[2021-03-20] MEDS: NICOTINE 14 MG/24 HOUR PATCH TD PRN (07:58)
[2021-03-20 16:00] VITALS: BP 132/80
[2021-03-21] MEDS: LORazepam 2 MG TABLET PO PRN ×3 (05:46→16:22)
[2021-03-21] MEDS: HALOPERIDOL 5 MG TABLET PO PRN ×3 (05:46→16:23)
[2021-03-21] MEDS: QUEtiapine FUMARATE 300 MG TABLET PO SCH ×2 (08:21→20:49)
[2021-03-21] MEDS: CEPHALEXIN MONOHYDRATE 500 MG CAPSULE PO SCH ×3 (08:22→16:22)
[2021-03-21] MEDS: NICOTINE 14 MG/24 HOUR PATCH TD PRN (08:22)
[2021-03-22] MEDS: LORazepam 2 MG TABLET PO PRN ×2 (07:15→15:41)
[2021-03-22] MEDS: HALOPERIDOL 5 MG TABLET PO PRN ×2 (07:15→15:41)
[2021-03-22] MEDS: CEPHALEXIN MONOHYDRATE 500 MG CAPSULE PO SCH ×3 (07:15→16:16)
[2021-03-22] MEDS: NICOTINE 14 MG/24 HOUR PATCH TD PRN (07:15)
[2021-03-22] MEDS: QUEtiapine FUMARATE 300 MG TABLET PO SCH ×2 (07:15→20:12)
[2021-03-22 11:04] VITALS: BP 134/67
[2021-03-22 16:25] VITALS: BP 158/98
[2021-03-22] MEDS: ZOLPIDEM TARTRATE 10 MG TABLET PO PRN (20:43)
[2021-03-23] MEDS: LORazepam 2 MG TABLET PO PRN (07:36)
[2021-03-23] MEDS: HALOPERIDOL 5 MG TABLET PO PRN (07:37)
[2021-03-23] MEDS: QUEtiapine FUMARATE 300 MG TABLET PO SCH (07:38)
[2021-03-23] MEDS: NICOTINE 14 MG/24 HOUR PATCH TD PRN (07:38)
[2021-03-23] MEDS: CEPHALEXIN MONOHYDRATE 500 MG CAPSULE PO SCH ×2 (07:38→11:57)
[2021-03-23 08:10] VITALS: BP 155/92
[2021-03-23] MEDS ORDERED: QUET300T2 PO (13:12)
== END 2021-03-23 14:45 | disposition home or self-care (01) | DRG 750 ==
LOC: EMS 13:14 → 3EC 21:00
PROVIDERS: ADMIT Psychiatry & Neurology Child & Adolescent Psychiatry; ATTEND Psychiatry & Neurology Child & Adolescent Psychiatry
DX: F20.0 Paranoid schizophrenia (principal); R45.851 Suicidal ideations; D75.839 Thrombocytosis, unspecified; D64.9 Anemia, unspecified; E66.9 Obesity, unspecified; F43.10 Post-traumatic stress disorder, unspecified; L03.90 Cellulitis, unspecified; F17.210 Nicotine dependence, cigarettes, uncomplicated; Z20.822 Contact with and (suspected) exposure to COVID-19; D72.829 Elevated white blood cell count, unspecified; F19.10 Other psychoactive substance abuse, uncomplicated; Z78.1 Physical restraint status; Z91.010 Allergy to peanuts; Z68.34 Body mass index [BMI] 34.0-34.9, adult
CPT/HCPCS: 80053; 85025; 87081; 99285; G0480; J1200; J1630; J2060; J3486; Q0162; 36415-L1; 36415-TC; Z7502; Z7610

== ENCOUNTER 2021-03-24 12:19 | Inpatient (IN) | payer MEDICAID, OTHER ==
[~2021-03-24] VITALS: Ht 170.2 cm; Wt 96.6 kg
[~2021-03-24 12:19] MED LIST changes: -CEPH500C3 PO; -QUET200T PO; +QUET300T2 PO; -SULF-261 PO
[2021-03-24] MEDS ORDERED: HALOPERIDOL LACTATE 5 MG/ML VIAL IM ONE (14:15)
[2021-03-24] MEDS ORDERED: LORazepam 2 MG/ML VIAL IM ONE (14:15)
[2021-03-24] MEDS ORDERED: DiphenhydrAMINE HCL 50 MG/ML VIAL IM ONE (14:15)
[2021-03-24 14:21] LABS: COVID AG,FIA SOURCE NASOPHARYNGEAL
[2021-03-24 14:32] LABS: BASOPHILS % (AUTO) 0.7 % (0.0-2.0); HEMATOCRIT 41.8 % (41-53); HEMOGLOBIN 13.7 g/dL (13.5-17.5); LYMPHOCYTES # (AUTO) 2.7 K/uL (1.0-4.8); LYMPHOCYTES % (AUTO) 17.7 % (22.0-44.0); MEAN CORPUSCULAR HEMOGLOBIN 30.3 pg (26.0-34.0); MEAN CORPUSCULAR HGB CONC 32.9 G/dL (31.0-37.0); MEAN CORPUSCULAR VOLUME 92 fL (80-100); MONOCYTES # (AUTO) 1.6 K/uL (0.1-1.0); MONOCYTES % (AUTO) 10.8 % (2.0-9.0); NEUTROPHILS # (AUTO) 10.4 K/uL (1.8-7.7); NEUTROPHILS % (AUTO) 68.8 % (40.0-70.0); PLATELET COUNT (AUTO) 413 K/uL (150-450); RED BLOOD CELL COUNT(AUTO) 4.54 MIL/uL (4.50-5.90); RED CELL DISTRIBUTION WIDTH 13.4 % (11.5-14.5)
[2021-03-24 14:42] LABS: ANION GAP 4 mmol/L (8-16); CALCIUM, TOTAL 8.4 mg/dL (8.8-10.5); CARBON DIOXIDE 32 mmol/L (22-29); CHLORIDE 102 mmol/L (98-107); CREATININE 1.01 mg/dL (0.60-1.30); GLOMERULAR FILTR. RATE CALC > 60 mL/min (>60); GLUCOSE,RANDOM 100 mg/dL (70-110); POTASSIUM 4.1 mmol/L (3.5-5.1); SODIUM SERUM 138 mmol/L (136-145); UREA NITROGEN, BLOOD 11 mg/dL (7-18)
[2021-03-24 14:48] LABS: ALANINE AMINOTRANSFERASE 81 U/L (12-78); ALBUMIN 3.4 g/dL (3.4-5.0); ALKALINE PHOSPHATASE 72 U/L (46-116); ASPARTATE AMINOTRANSFERASE 49 U/L (15-37); BILIRUBIN,TOTAL 0.2 mg/dL (0.1-1.0); TOTAL PROTEIN, SERUM 7.7 g/dL (6.4-8.2)
[2021-03-24] MEDS ORDERED: ZOLPIDEM TARTRATE 10 MG TABLET PO PRN (16:00)
[2021-03-25 00:44] VITALS: BP 143/90
[2021-03-25] MEDS ORDERED: INFLUENZA VIRUS VACCINE QVS 2021-22 (6MO+)/PF 60 MCG/0.5 ML SYRINGE IM. ONE (00:45)
[2021-03-25 07:26] LABS: CHOL/HDL RATIO 3.8 (4.2-7.3)
[2021-03-25 08:07] VITALS: BP 138/69
[2021-03-25] MEDS: HALOPERIDOL 5 MG TABLET PO PRN ×2 (08:32→14:12)
[2021-03-25] MEDS: NICOTINE 21 MG/24 HOUR PATCH TD SCH (08:32)
[2021-03-25] MEDS: LORazepam 2 MG TABLET PO PRN ×2 (08:32→14:12)
[2021-03-25] MEDS: QUEtiapine FUMARATE 300 MG TABLET PO SCH ×2 (12:14→20:56)
[2021-03-25] MEDS ORDERED: PETROLATUM,WHITE 28 GM JELLY TP PRN (12:15)
[2021-03-25] MEDS ORDERED: LOPERAMIDE HCL 2 MG CAPSULE PO PRN (12:15)
[2021-03-25] MEDS ORDERED: ACETAMINOPHEN 325 MG TABLET PO PRN (12:15)
[2021-03-25] MEDS ORDERED: MAG HYDROX/AL HYDROX/SIMETH ES 30 ML SUSPENSION UDCUP PO PRN (12:15)
[2021-03-25] MEDS ORDERED: ALBUTEROL SULFATE HFA 90 MCG/PUFF 8 GM INHALER IH PRN (12:15)
[2021-03-25] MEDS ORDERED: GuaiFENesin/D-METHORPHAN [SUGAR-FREE] 200-20MG/10 ML SYRUP UDCUP PO PRN (12:15)
[2021-03-25] MEDS ORDERED: IBUPROFEN 400 MG TABLET PO PRN (12:15)
[2021-03-25] MEDS ORDERED: MAGNESIUM HYDROXIDE SUSPENSION 30 ML UDCUP PO PRN (12:15)
[2021-03-25] MEDS ORDERED: ONDANSETRON HCL 4 MG TABLET PO PRN (12:15)
[2021-03-25] MEDS ORDERED: DOCUSATE SODIUM 100 MG CAPSULE PO PRN (12:15)
[2021-03-25] MEDS ORDERED: NICOTINE 14 MG/24 HOUR PATCH TD PRN (12:15)
[2021-03-25] MEDS ORDERED: CloNIDine HCL 0.1 MG TABLET PO PRN (12:15)
[2021-03-25 16:24] VITALS: BP 134/66
[2021-03-26 06:28] VITALS: BP 150/98
[2021-03-26] MEDS ORDERED: ChlorproMAZINE HCL 50 MG/2 ML AMP IM ONE (08:00)
[2021-03-26] MEDS ORDERED: LORazepam 2 MG/ML VIAL IM ONE (08:00)
[2021-03-26] MEDS ORDERED: DiphenhydrAMINE HCL 50 MG/ML VIAL IM ONE (08:00)
[2021-03-26 08:30] VITALS: BP 111/77
[2021-03-26] MEDS: QUEtiapine FUMARATE 300 MG TABLET PO SCH ×2 (08:56→20:50)
[2021-03-26] MEDS: NICOTINE 21 MG/24 HOUR PATCH TD SCH (09:00)
[2021-03-26] MEDS: LORazepam 2 MG TABLET PO PRN (12:01)
[2021-03-26 16:08] VITALS: BP 125/69
[2021-03-27] MEDS ORDERED: DiphenhydrAMINE HCL 50 MG/ML VIAL ONE (05:50)
[2021-03-27] MEDS ORDERED: LORazepam 2 MG/ML VIAL ONE (05:50)
[2021-03-27] MEDS ORDERED: DiphenhydrAMINE HCL 50 MG/ML VIAL IM ONE (06:00)
[2021-03-27] MEDS ORDERED: ChlorproMAZINE HCL 50 MG/2 ML AMP IM ONE (06:00)
[2021-03-27] MEDS ORDERED: LORazepam 2 MG/ML VIAL IM ONE (06:00)
[2021-03-27] MEDS: LORazepam 2 MG TABLET PO PRN (07:40)
[2021-03-27] MEDS: QUEtiapine FUMARATE 300 MG TABLET PO SCH (08:09)
[2021-03-27 08:10] VITALS: BP 102/78
[2021-03-27] MEDS: NICOTINE 21 MG/24 HOUR PATCH TD SCH (08:21)
== END 2021-03-27 11:15 | disposition home or self-care (01) | DRG 750 ==
LOC: EMS 12:19 → B3A 16:14
PROVIDERS: ADMIT Psychiatry & Neurology Child & Adolescent Psychiatry; ATTEND Psychiatry & Neurology Child & Adolescent Psychiatry
DX: F25.1 Schizoaffective disorder, depressive type (principal); L03.312 Cellulitis of back [any part except buttock and flank]; R45.851 Suicidal ideations; E78.5 Hyperlipidemia, unspecified; Z20.822 Contact with and (suspected) exposure to COVID-19; F43.10 Post-traumatic stress disorder, unspecified; F17.200 Nicotine dependence, unspecified, uncomplicated; Z91.010 Allergy to peanuts; Z59.00 Homelessness unspecified; Z78.1 Physical restraint status; Z91.51 Personal history of suicidal behavior; Z71.6 Tobacco abuse counseling
CPT/HCPCS: 80053; 80061; 85025; 87081; 99285; G0480; J1200; J1630; J2060; J3230

== ENCOUNTER 2021-03-28 22:06 | Emergency (ER) | payer MEDICAID, OTHER ==
[~2021-03-28] VITALS: Ht 170.2 cm; Wt 96.8 kg
[2021-03-29 00:03] LABS: BASOPHILS % (AUTO) 0.9 % (0.0-2.0); EOSINOPHILS % (AUTO) 2.2 % (1.0-6.0); HEMATOCRIT 40.4 % (41-53); HEMOGLOBIN 13.6 g/dL (13.5-17.5); LYMPHOCYTES # (AUTO) 2.9 K/uL (1.0-4.8); LYMPHOCYTES % (AUTO) 18.8 % (22.0-44.0); MEAN CORPUSCULAR HEMOGLOBIN 30.7 pg (26.0-34.0); MEAN CORPUSCULAR HGB CONC 33.6 G/dL (31.0-37.0); MEAN CORPUSCULAR VOLUME 91 fL (80-100); MONOCYTES # (AUTO) 1.6 K/uL (0.1-1.0); MONOCYTES % (AUTO) 10.4 % (2.0-9.0); NEUTROPHILS # (AUTO) 10.3 K/uL (1.8-7.7); NEUTROPHILS % (AUTO) 67.7 % (40.0-70.0); PLATELET COUNT (AUTO) 381 K/uL (150-450); RED BLOOD CELL COUNT(AUTO) 4.42 MIL/uL (4.50-5.90); RED CELL DISTRIBUTION WIDTH 13.7 % (11.5-14.5)
[2021-03-29 00:17] LABS: ANION GAP 4 mmol/L (8-16); CALCIUM, TOTAL 8.8 mg/dL (8.8-10.5); CARBON DIOXIDE 32 mmol/L (22-29); CHLORIDE 103 mmol/L (98-107); CREATININE 0.81 mg/dL (0.60-1.30); GLOMERULAR FILTR. RATE CALC > 60 mL/min (>60); GLUCOSE,RANDOM 99 mg/dL (70-110); POTASSIUM 4.2 mmol/L (3.5-5.1); SODIUM SERUM 139 mmol/L (136-145); UREA NITROGEN, BLOOD 15 mg/dL (7-18)
[2021-03-29 00:20] LABS: ALANINE AMINOTRANSFERASE 95 U/L (12-78); ALBUMIN 3.4 g/dL (3.4-5.0); ALKALINE PHOSPHATASE 76 U/L (46-116); ASPARTATE AMINOTRANSFERASE 117 U/L (15-37); BILIRUBIN,TOTAL 0.4 mg/dL (0.1-1.0); TOTAL PROTEIN, SERUM 7.7 g/dL (6.4-8.2)
[2021-03-29] MEDS ORDERED: OLANZapine 5 MG TABLET PO ONE (01:00)
[2021-03-29] MEDS ORDERED: LORazepam 1 MG TABLET PO ONE (01:00)
[2021-03-29 01:39] LABS: COVID AG,FIA SOURCE NASOPHARYNGEAL
[2021-03-29 02:00] LABS: AMPHET/METH SCREEN,URINE NEGATIVE (NEGATIVE); BARBITURATE SCREEN, URINE NEGATIVE (NEGATIVE); BENZODIAZEPINES SCREEN,URINE NEGATIVE (NEGATIVE); CANNABINOID SCREEN,URINE NEGATIVE (NEGATIVE); COCAINE SCREEN,URINE NEGATIVE (NEGATIVE); METHADONE SCREEN, URINE NEGATIVE (NEGATIVE); OPIATE SCREEN,URINE NEGATIVE (NEGATIVE)
[2021-03-29 02:03] LABS: PHENCYCLIDINE SCREEN,URINE NEGATIVE (NEGATIVE)
[2021-03-29 02:25] VITALS: BP 129/71
== END 2021-03-29 03:30 | disposition short-term general hospital (02) ==
LOC: EMS 22:08
DX: F20.0 Paranoid schizophrenia (principal); F32.9 Major depressive disorder, single episode, unspecified; F41.9 Anxiety disorder, unspecified; F17.210 Nicotine dependence, cigarettes, uncomplicated; Z79.899 Other long term (current) drug therapy; Z91.010 Allergy to peanuts; Z20.822 Contact with and (suspected) exposure to COVID-19
CPT/HCPCS: 36415; 80053; 80307; 85025; 87426; 99285; G0480

== ENCOUNTER 2021-03-31 05:20 | Emergency (ER) | payer OTHER ==
[~2021-03-31] VITALS: Ht 165.1 cm; Wt 72.7 kg
[2021-03-31] MEDS ORDERED: HALOPERIDOL LACTATE 5 MG/ML VIAL IM ONE (05:45)
[2021-03-31] MEDS ORDERED: LORazepam 2 MG/ML VIAL IM ONE (05:45)
[2021-03-31] MEDS ORDERED: DiphenhydrAMINE HCL 50 MG/ML VIAL IM ONE (05:45)
[2021-03-31 08:15] LABS: BASOPHILS % (AUTO) 0.7 % (0.0-2.0); EOSINOPHILS % (AUTO) 2.4 % (1.0-6.0); HEMATOCRIT 38.7 % (41-53); LYMPHOCYTES # (AUTO) 2.3 K/uL (1.0-4.8); LYMPHOCYTES % (AUTO) 17.8 % (22.0-44.0); MEAN CORPUSCULAR HEMOGLOBIN 31.1 pg (26.0-34.0); MEAN CORPUSCULAR HGB CONC 33.6 G/dL (31.0-37.0); MEAN CORPUSCULAR VOLUME 93 fL (80-100); MONOCYTES # (AUTO) 1.4 K/uL (0.1-1.0); MONOCYTES % (AUTO) 10.7 % (2.0-9.0); NEUTROPHILS % (AUTO) 68.4 % (40.0-70.0); PLATELET COUNT (AUTO) 335 K/uL (150-450); RED BLOOD CELL COUNT(AUTO) 4.18 MIL/uL (4.50-5.90); RED CELL DISTRIBUTION WIDTH 13.4 % (11.5-14.5)
[2021-03-31 08:26] LABS: ANION GAP 9 mmol/L (8-16); CALCIUM, TOTAL 8.4 mg/dL (8.8-10.5); CARBON DIOXIDE 28 mmol/L (22-29); CHLORIDE 104 mmol/L (98-107); CREATININE 0.72 mg/dL (0.60-1.30); GLOMERULAR FILTR. RATE CALC > 60 mL/min (>60); GLUCOSE,RANDOM 94 mg/dL (70-110); POTASSIUM 3.5 mmol/L (3.5-5.1); SODIUM SERUM 141 mmol/L (136-145); UREA NITROGEN, BLOOD 12 mg/dL (7-18)
[2021-03-31 08:32] LABS: ALANINE AMINOTRANSFERASE 91 U/L (12-78); ALBUMIN 3.2 g/dL (3.4-5.0); ALKALINE PHOSPHATASE 68 U/L (46-116); ASPARTATE AMINOTRANSFERASE 107 U/L (15-37); BILIRUBIN,TOTAL 0.5 mg/dL (0.1-1.0); TOTAL PROTEIN, SERUM 7.4 g/dL (6.4-8.2)
[2021-03-31 12:45] VITALS: BP 122/77
== END 2021-03-31 13:49 | disposition home or self-care (01) ==
LOC: EMS 05:20
DX: G92.9 Unspecified toxic encephalopathy (principal); F25.0 Schizoaffective disorder, bipolar type; R45.850 Homicidal ideations; F15.10 Other stimulant abuse, uncomplicated; F32.9 Major depressive disorder, single episode, unspecified; F41.9 Anxiety disorder, unspecified; F17.210 Nicotine dependence, cigarettes, uncomplicated; Z91.030 Bee allergy status; Z91.010 Allergy to peanuts
CPT/HCPCS: 36415; 80053; 85025; 96372; 99291; G0480; J1200; J1630; J2060

== ENCOUNTER 2021-04-03 22:46 | Emergency (ER) | payer OTHER ==
[~2021-04-03] VITALS: Ht 165.1 cm; Wt 73.0 kg
[2021-04-04 00:02] LABS: BASOPHILS % (AUTO) 0.7 % (0.0-2.0); EOSINOPHILS % (AUTO) 4.6 % (1.0-6.0); HEMATOCRIT 38.5 % (41-53); LYMPHOCYTES # (AUTO) 2.5 K/uL (1.0-4.8); LYMPHOCYTES % (AUTO) 18.4 % (22.0-44.0); MEAN CORPUSCULAR HEMOGLOBIN 30.8 pg (26.0-34.0); MEAN CORPUSCULAR HGB CONC 33.8 G/dL (31.0-37.0); MEAN CORPUSCULAR VOLUME 91 fL (80-100); MONOCYTES # (AUTO) 1.2 K/uL (0.1-1.0); MONOCYTES % (AUTO) 8.7 % (2.0-9.0); NEUTROPHILS % (AUTO) 67.6 % (40.0-70.0); PLATELET COUNT (AUTO) 347 K/uL (150-450); RED BLOOD CELL COUNT(AUTO) 4.22 MIL/uL (4.50-5.90); RED CELL DISTRIBUTION WIDTH 13.8 % (11.5-14.5)
[2021-04-04 00:07] LABS: ANION GAP 8 mmol/L (8-16); CALCIUM, TOTAL 8.6 mg/dL (8.8-10.5); CARBON DIOXIDE 27 mmol/L (22-29); CHLORIDE 103 mmol/L (98-107); CREATININE 0.76 mg/dL (0.60-1.30); GLOMERULAR FILTR. RATE CALC > 60 mL/min (>60); GLUCOSE,RANDOM 122 mg/dL (70-110); POTASSIUM 3.3 mmol/L (3.5-5.1); SODIUM SERUM 138 mmol/L (136-145); UREA NITROGEN, BLOOD 10 mg/dL (7-18)
[2021-04-04 00:12] LABS: ALANINE AMINOTRANSFERASE 105 U/L (12-78); ALBUMIN 3.1 g/dL (3.4-5.0); ALKALINE PHOSPHATASE 70 U/L (46-116); ASPARTATE AMINOTRANSFERASE 80 U/L (15-37); BILIRUBIN,TOTAL 0.3 mg/dL (0.1-1.0); TOTAL PROTEIN, SERUM 7.2 g/dL (6.4-8.2)
[2021-04-04 00:14] LABS: ACETAMINOPHEN < 2 mcg/mL (10-30)
[2021-04-04] MEDS ORDERED: DiphenhydrAMINE HCL 50 MG/ML VIAL IM ONE (00:15)
[2021-04-04] MEDS ORDERED: LORazepam 2 MG/ML VIAL IM ONE (00:15)
[2021-04-04] MEDS ORDERED: HALOPERIDOL LACTATE 5 MG/ML VIAL IM ONE ×2 (00:15→01:15)
[2021-04-04 00:38] LABS: SALICYLATE < 2.8 mg/dL (2.8-20.0)
[2021-04-04 07:45] VITALS: BP 120/56
[2021-04-04 08:25] LABS: COVID AG,FIA SOURCE NASOPHARYNGEAL
[2021-04-04] MEDS ORDERED: BACITRACIN 0.9 GM PACKET OINTMENT TP ONE (09:15)
== END 2021-04-04 09:25 | disposition home or self-care (01) ==
LOC: EMS 22:50
DX: F20.9 Schizophrenia, unspecified (principal); R45.851 Suicidal ideations; R45.850 Homicidal ideations; F32.9 Major depressive disorder, single episode, unspecified; F41.9 Anxiety disorder, unspecified; F17.210 Nicotine dependence, cigarettes, uncomplicated; Z91.030 Bee allergy status; Z91.010 Allergy to peanuts; Z79.899 Other long term (current) drug therapy; Z20.822 Contact with and (suspected) exposure to COVID-19
CPT/HCPCS: 80053; 85025; 87426; 96372; 99285; G0480; J1200; J1630; J2060; G0481

== ENCOUNTER 2021-07-14 19:16 | Emergency (ER) | payer OTHER ==
[~2021-07-14] VITALS: Ht 175.3 cm; Wt 80.0 kg
[2021-07-14 19:20] VITALS: BP 141/84
[2021-07-14] MEDS ORDERED: OLAN10TA74 PO ×2 (19:25→20:21)
[2021-07-14] MEDS ORDERED: BUSP10TA23 PO ×2 (19:25→20:21)
[2021-07-14] MEDS ORDERED: BusPIRone HCL 10 MG TABLET PO ONE (19:45)
[2021-07-14] MEDS ORDERED: OLANZapine 5 MG TABLET PO ONE (19:45)
[2021-07-14 20:04] LABS: COVID AG,FIA SOURCE NASOPHARYNGEAL
== END 2021-07-14 21:00 | disposition home or self-care (01) ==
LOC: EMS 19:24
DX: B34.9 Viral infection, unspecified (principal); F25.0 Schizoaffective disorder, bipolar type; F41.9 Anxiety disorder, unspecified; F17.210 Nicotine dependence, cigarettes, uncomplicated; F15.90 Other stimulant use, unspecified, uncomplicated; Z91.030 Bee allergy status; Z91.010 Allergy to peanuts; Z79.899 Other long term (current) drug therapy; Z20.822 Contact with and (suspected) exposure to COVID-19
CPT/HCPCS: 99283

== ENCOUNTER → 2021-07-25 12:14 | Emergency (ER) | payer OTHER ==
[~2021-07-25 12:14] MED LIST changes: +BUSP10TA23 PO; +OLAN10TA74 PO
== END | disposition left against medical advice (07) ==
LOC: EMS 12:14
DX: R10.9 Unspecified abdominal pain (principal); Z53.21 Procedure and treatment not carried out due to patient leaving prior to being seen by health care provider

== ENCOUNTER 2021-07-26 18:58 | Emergency (ER) | payer OTHER ==
[~2021-07-26] VITALS: Ht 167.6 cm; Wt 98.1 kg
[2021-07-26] MEDS ORDERED: SODIUM CHLORIDE 0.9% 1,000 ML IV ONE (19:45)
[2021-07-26] MEDS ORDERED: ONDANSETRON HCL 4 MG/2 ML VIAL IVP ONE (19:45)
[2021-07-26] MEDS ORDERED: BISMUTH SUBSALICYLATE 524 MG/30 ML SUSPENSION UDCUP PO ONE (19:45)
[2021-07-26 19:57] LABS: BASOPHILS % (AUTO) 0.8 % (0.0-2.0); EOSINOPHILS % (AUTO) 2.9 % (1.0-6.0); HEMATOCRIT 39.4 % (41-53); HEMOGLOBIN 13.4 g/dL (13.5-17.5); LYMPHOCYTES # (AUTO) 2.7 K/uL (1.0-4.8); LYMPHOCYTES % (AUTO) 28.6 % (22.0-44.0); MEAN CORPUSCULAR HEMOGLOBIN 30.5 pg (26.0-34.0); MEAN CORPUSCULAR HGB CONC 33.9 G/dL (31.0-37.0); MEAN CORPUSCULAR VOLUME 90 fL (80-100); MONOCYTES # (AUTO) 0.9 K/uL (0.1-1.0); MONOCYTES % (AUTO) 10.1 % (2.0-9.0); NEUTROPHILS # (AUTO) 5.4 K/uL (1.8-7.7); NEUTROPHILS % (AUTO) 57.6 % (40.0-70.0); PLATELET COUNT (AUTO) 395 K/uL (150-450); RED BLOOD CELL COUNT(AUTO) 4.38 MIL/uL (4.50-5.90); RED CELL DISTRIBUTION WIDTH 13.6 % (11.5-14.5)
[2021-07-26 20:08] LABS: ANION GAP 5 mmol/L (8-16); CALCIUM, TOTAL 8.4 mg/dL (8.8-10.5); CARBON DIOXIDE 32 mmol/L (22-29); CHLORIDE 102 mmol/L (98-107); CREATININE 0.78 mg/dL (0.60-1.30); GLOMERULAR FILTR. RATE CALC > 60 mL/min (>60); GLUCOSE,RANDOM 98 mg/dL (70-110); POTASSIUM 3.6 mmol/L (3.5-5.1); SODIUM SERUM 139 mmol/L (136-145); UREA NITROGEN, BLOOD 4 mg/dL (7-18)
[2021-07-26 20:13] LABS: ALANINE AMINOTRANSFERASE 27 U/L (12-78); ALBUMIN 3.4 g/dL (3.4-5.0); ALKALINE PHOSPHATASE 69 U/L (46-116); ASPARTATE AMINOTRANSFERASE 22 U/L (15-37); BILIRUBIN,TOTAL 0.2 mg/dL (0.1-1.0); LIPASE 81 U/L (73-393)
[2021-07-26 20:19] LABS: COVID AG,FIA SOURCE NASAL SWAB
[2021-07-26 20:22] LABS: APPEARANCE,URINE CLEAR (CLEAR); BILIRUBIN,URINE NEGATIVE (NEGATIVE); GLUCOSE, URINE (UA) NEGATIVE (NEGATIVE); KETONES,URINE NEGATIVE (NEGATIVE); LEUKOCYTE ESTERASE ,URINE NEGATIVE (NEGATIVE); NITRATE,URINE NEGATIVE (NEGATIVE); OCCULT BLOOD,URINE NEGATIVE (NEGATIVE); PH,URINE 6.5 (5.0-8.0); PROTEIN,URINE NEGATIVE (NEGATIVE); SPECIFIC GRAVITIY, URINE 1.009 (1.003-1.030); UROBILINOGEN,URINE <=1.0 mg/dL (<=1.0)
[2021-07-26 20:29] LABS: AMPHET/METH SCREEN,URINE POSITIVE (NEGATIVE); BARBITURATE SCREEN, URINE NEGATIVE (NEGATIVE); BENZODIAZEPINES SCREEN,URINE NEGATIVE (NEGATIVE); CANNABINOID SCREEN,URINE NEGATIVE (NEGATIVE); COCAINE SCREEN,URINE NEGATIVE (NEGATIVE); METHADONE SCREEN, URINE NEGATIVE (NEGATIVE); OPIATE SCREEN,URINE NEGATIVE (NEGATIVE); PHENCYCLIDINE SCREEN,URINE NEGATIVE (NEGATIVE)
[2021-07-26 20:42] LABS: INFLUENZA TYPE A NEGATIVE FOR TYPE A (NEGATIVE); INFLUENZA TYPE B NEGATIVE FOR TYPE B (NEGATIVE)
[2021-07-26 21:52] VITALS: BP 132/73
== END 2021-07-26 22:23 | disposition home or self-care (01) ==
LOC: EMS 19:08
DX: R11.2 Nausea with vomiting, unspecified (principal); R19.7 Diarrhea, unspecified; F20.9 Schizophrenia, unspecified; F15.10 Other stimulant abuse, uncomplicated; F41.9 Anxiety disorder, unspecified; F31.9 Bipolar disorder, unspecified; F17.210 Nicotine dependence, cigarettes, uncomplicated; Z20.822 Contact with and (suspected) exposure to COVID-19; Z91.030 Bee allergy status; Z91.010 Allergy to peanuts
CPT/HCPCS: 36415; 80053; 80307; 81003; 83690; 85025; 87426; 87804; 96361; 96374; 99283; J2405; J7030

== ENCOUNTER 2021-10-22 07:49 | Emergency (ER) | payer OTHER ==
[~2021-10-22] VITALS: Ht 167.6 cm; Wt 100.0 kg
[2021-10-22] MEDS ORDERED: PALI39DI IM (08:02)
[2021-10-22 08:34] LABS: BASOPHILS % (AUTO) 0.9 % (0.0-2.0); EOSINOPHILS % (AUTO) 3.8 % (1.0-6.0); HEMATOCRIT 41.4 % (41-53); HEMOGLOBIN 13.9 g/dL (13.5-17.5); LYMPHOCYTES # (AUTO) 1.9 K/uL (1.0-4.8); LYMPHOCYTES % (AUTO) 22.2 % (22.0-44.0); MEAN CORPUSCULAR HEMOGLOBIN 30.4 pg (26.0-34.0); MEAN CORPUSCULAR HGB CONC 33.4 G/dL (31.0-37.0); MEAN CORPUSCULAR VOLUME 91 fL (80-100); MONOCYTES # (AUTO) 0.9 K/uL (0.1-1.0); MONOCYTES % (AUTO) 10.2 % (2.0-9.0); NEUTROPHILS # (AUTO) 5.4 K/uL (1.8-7.7); NEUTROPHILS % (AUTO) 62.9 % (40.0-70.0); PLATELET COUNT (AUTO) 404 K/uL (150-450); RED BLOOD CELL COUNT(AUTO) 4.56 MIL/uL (4.50-5.90)
[2021-10-22 08:43] LABS: ANION GAP 4 mmol/L (8-16); CALCIUM, TOTAL 8.2 mg/dL (8.8-10.5); CARBON DIOXIDE 28 mmol/L (22-29); CHLORIDE 108 mmol/L (98-107); CREATININE 0.74 mg/dL (0.60-1.30); GLOMERULAR FILTR. RATE CALC > 60 mL/min (>60); GLUCOSE,RANDOM 105 mg/dL (70-110); POTASSIUM 3.7 mmol/L (3.5-5.1); SODIUM SERUM 140 mmol/L (136-145); UREA NITROGEN, BLOOD 7 mg/dL (7-18)
[2021-10-22 08:49] LABS: ALANINE AMINOTRANSFERASE 34 U/L (12-78); ALBUMIN 2.7 g/dL (3.4-5.0); ALKALINE PHOSPHATASE 59 U/L (46-116); ASPARTATE AMINOTRANSFERASE 28 U/L (15-37); BILIRUBIN,TOTAL 0.2 mg/dL (0.1-1.0); TOTAL PROTEIN, SERUM 6.5 g/dL (6.4-8.2)
[2021-10-22] MEDS ORDERED: BusPIRone HCL 10 MG TABLET PO ONE (10:00)
[2021-10-22] MEDS ORDERED: BUSP10TA23 PO (10:15)
[2021-10-22 11:41] VITALS: BP 129/73
== END 2021-10-22 11:46 | disposition home or self-care (01) ==
LOC: EMS 07:50
DX: R45.89 Other symptoms and signs involving emotional state (principal); F41.9 Anxiety disorder, unspecified; F31.9 Bipolar disorder, unspecified; F20.9 Schizophrenia, unspecified; F17.210 Nicotine dependence, cigarettes, uncomplicated; Z86.59 Personal history of other mental and behavioral disorders; Z91.030 Bee allergy status; Z91.010 Allergy to peanuts
CPT/HCPCS: 36415; 80053; 85025; 99283; G0480

== ENCOUNTER 2023-01-14 11:29 | Inpatient (IN) | payer MEDICAID, OTHER ==
[~2023-01-14] VITALS: Ht 165.1 cm; Wt 93.0 kg
[~2023-01-14 11:29] MED LIST changes: -OLAN10TA74 PO; +PALI39DI IM; -QUET300T2 PO
[2023-01-14] MEDS ORDERED: PALI234D IM (11:38)
[2023-01-14 12:15] LABS: BASOPHILS % (AUTO) 0.7 % (0.0-2.0); EOSINOPHILS % (AUTO) 2.2 % (1.0-6.0); HEMATOCRIT 43.5 % (41-53); HEMOGLOBIN 14.4 g/dL (13.5-17.5); LYMPHOCYTES # (AUTO) 1.6 K/uL (1.0-4.8); LYMPHOCYTES % (AUTO) 18.1 % (22.0-44.0); MEAN CORPUSCULAR HEMOGLOBIN 31.6 pg (26.0-34.0); MEAN CORPUSCULAR HGB CONC 33.3 G/dL (31.0-37.0); MEAN CORPUSCULAR VOLUME 95 fL (80-100); MONOCYTES # (AUTO) 0.8 K/uL (0.1-1.0); MONOCYTES % (AUTO) 8.7 % (2.0-9.0); NEUTROPHILS # (AUTO) 6.3 K/uL (1.8-7.7); NEUTROPHILS % (AUTO) 70.3 % (40.0-70.0); PLATELET COUNT (AUTO) 342 K/uL (150-450); RED BLOOD CELL COUNT(AUTO) 4.57 MIL/uL (4.50-5.90); RED CELL DISTRIBUTION WIDTH 13.3 % (11.5-14.5); WHITE BLOOD COUNT (AUTO) 8.9 K/uL (4.5-11.0)
[2023-01-14 12:22] LABS: ANION GAP 8 mmol/L (8-16); CALCIUM, TOTAL 7.8 mg/dL (8.8-10.5); CARBON DIOXIDE 27 mmol/L (22-29); CHLORIDE 104 mmol/L (98-107); CREATININE 0.67 mg/dL (0.60-1.30); GLOMERULAR FILTR. RATE CALC > 60 mL/min (>60); GLUCOSE,RANDOM 123 mg/dL (70-110); POTASSIUM 3.8 mmol/L (3.5-5.1); SODIUM SERUM 139 mmol/L (136-145); UREA NITROGEN, BLOOD 9 mg/dL (7-18)
[2023-01-14 12:29] LABS: ALANINE AMINOTRANSFERASE 26 U/L (12-78); ALBUMIN 2.9 g/dL (3.4-5.0); ALCOHOL, BLOOD (SERUM) < 3 mg/dL (0-10); ALKALINE PHOSPHATASE 62 U/L (46-116); ASPARTATE AMINOTRANSFERASE 32 U/L (15-37); BILIRUBIN,TOTAL 0.3 mg/dL (0.1-1.0); TOTAL PROTEIN, SERUM 6.4 g/dL (6.4-8.2)
[2023-01-14 12:36] LABS: COVID AG,FIA SOURCE NASAL SWAB
[2023-01-14 12:58] LABS: SARS-COV2 (COVID) ANTIGEN,FIA Negative (Negative)
[2023-01-14] MEDS ORDERED: HALOPERIDOL 5 MG TABLET PO ONE (14:00)
[2023-01-14] MEDS ORDERED: LORazepam 1 MG TABLET PO ONE (14:00)
[2023-01-14 14:07] LABS: APPEARANCE,URINE CLEAR (CLEAR); BILIRUBIN,URINE NEGATIVE (NEGATIVE); COLOR,URINE LIGHT YELLOW (YELLOW); GLUCOSE, URINE (UA) NEGATIVE (NEGATIVE); KETONES,URINE NEGATIVE (NEGATIVE); LEUKOCYTE ESTERASE ,URINE NEGATIVE (NEGATIVE); NITRATE,URINE NEGATIVE (NEGATIVE); OCCULT BLOOD,URINE NEGATIVE (NEGATIVE); PH,URINE 6.5 (5.0-8.0); PROTEIN,URINE NEGATIVE (NEGATIVE); SPECIFIC GRAVITIY, URINE 1.011 (1.003-1.030); UROBILINOGEN,URINE <=1.0 mg/dL (<=1.0)
[2023-01-14 14:12] LABS: PH,URINE DRUG SCREEN 6.5 (5.0-8.0)
[2023-01-14 14:32] LABS: AMPHET/METH SCREEN,URINE NEGATIVE (NEGATIVE); BARBITURATE SCREEN, URINE NEGATIVE (NEGATIVE); BENZODIAZEPINES SCREEN,URINE NEGATIVE (NEGATIVE); CANNABINOID SCREEN,URINE NEGATIVE (NEGATIVE); COCAINE SCREEN,URINE NEGATIVE (NEGATIVE); METHADONE SCREEN, URINE NEGATIVE (NEGATIVE); OPIATE SCREEN,URINE NEGATIVE (NEGATIVE); PHENCYCLIDINE SCREEN,URINE NEGATIVE (NEGATIVE)
[2023-01-14 14:34] LABS: ALCOHOL, URINE DRUG SCREEN NEGATIVE (NEGATIVE)
[2023-01-14] MEDS ORDERED: ACETAMINOPHEN 325 MG TABLET PO ONE (15:45)
[2023-01-14 20:26] VITALS: BP 140/82; PULSE 60; RESP 18; TEMP 97.8; O2SAT 99
[2023-01-14] MEDS: HALOPERIDOL 5 MG TABLET PO PRN (21:09)
[2023-01-14] MEDS: ZOLPIDEM TARTRATE 10 MG TABLET PO PRN (21:09)
[2023-01-14] MEDS: LORazepam 2 MG TABLET PO PRN (21:09)
[2023-01-15 08:33] VITALS: BP 141/76; PULSE 73; RESP 18; TEMP 97.1; O2SAT 98
[2023-01-15] MEDS ORDERED: GuaiFENesin/D-METHORPHAN [SUGAR-FREE] 200-20MG/10 ML SYRUP UDCUP PO PRN (13:30)
[2023-01-15] MEDS ORDERED: IBUPROFEN 400 MG TABLET PO PRN (13:30)
[2023-01-15] MEDS ORDERED: ACETAMINOPHEN 325 MG TABLET PO PRN (13:30)
[2023-01-15] MEDS ORDERED: ONDANSETRON HCL 4 MG TABLET PO PRN (13:30)
[2023-01-15] MEDS ORDERED: MAGNESIUM HYDROXIDE SUSPENSION 30 ML UDCUP PO PRN (13:30)
[2023-01-15] MEDS ORDERED: MAG HYDROX/AL HYDROX/SIMETH ES 30 ML SUSPENSION UDCUP PO PRN (13:30)
[2023-01-15] MEDS ORDERED: PETROLATUM,WHITE 28 GM JELLY TP PRN (13:30)
[2023-01-15] MEDS ORDERED: LOPERAMIDE HCL 2 MG CAPSULE PO PRN (13:30)
[2023-01-15] MEDS ORDERED: NICOTINE 14 MG/24 HOUR PATCH TD PRN (13:30)
[2023-01-15] MEDS ORDERED: DOCUSATE SODIUM 100 MG CAPSULE PO PRN (13:30)
[2023-01-15] MEDS ORDERED: ALBUTEROL SULFATE HFA 90 MCG/PUFF 8 GM INHALER IH PRN (13:30)
[2023-01-15] MEDS ORDERED: CloNIDine HCL 0.1 MG TABLET PO PRN (13:30)
[2023-01-15] MEDS ORDERED: BUSP10TA23 PO (13:40)
[2023-01-15] MEDS ORDERED: PALI819S IM (13:40)
[2023-01-15] MEDS ORDERED: BUPR-49 PO (13:40)
[2023-01-15] MEDS: HALOPERIDOL 5 MG TABLET PO PRN ×2 (16:53→21:13)
[2023-01-15] MEDS: LORazepam 2 MG TABLET PO PRN ×2 (16:53→21:13)
[2023-01-15 20:22] VITALS: BP 137/68; PULSE 68; RESP 20; TEMP 97.6; O2SAT 97
[2023-01-15] MEDS: ZOLPIDEM TARTRATE 10 MG TABLET PO PRN (21:13)
[2023-01-16 07:48] LABS: HEMOGLOBIN A1C 5.3 % (3.8-5.6)
[2023-01-16 08:02] LABS: CHOL/HDL RATIO 3.3 (4.2-7.3); THYROID STIMULATING HORMONE 1.77 uIU/mL (0.36-3.74)
[2023-01-16 08:54] VITALS: BP 127/74; PULSE 65; RESP 18; TEMP 99; O2SAT 97
[2023-01-16] MEDS ORDERED: PALIPERIDONE PALMITATE 156 MG/ML SYRINGE IM SCH (09:00)
[2023-01-16 21:26] VITALS: BP 138/83; PULSE 78; RESP 16; TEMP 97.5; O2SAT 98
[2023-01-17 08:53] VITALS: BP 113/69; PULSE 73; RESP 17; TEMP 97.7; O2SAT 96
[2023-01-17] MEDS: LORazepam 2 MG TABLET PO PRN ×3 (11:12→20:32)
[2023-01-17] MEDS: HALOPERIDOL 5 MG TABLET PO PRN ×3 (11:12→20:32)
[2023-01-17] MEDS: ZOLPIDEM TARTRATE 10 MG TABLET PO PRN (20:32)
[2023-01-18 00:10] VITALS: BP 114/82; PULSE 78; RESP 18; TEMP 97.8; O2SAT 97
[2023-01-18] MEDS: HALOPERIDOL 5 MG TABLET PO PRN (08:27)
[2023-01-18] MEDS: LORazepam 2 MG TABLET PO PRN (08:27)
[2023-01-18 09:40] VITALS: BP 122/78; PULSE 92; RESP 18; TEMP 98; O2SAT 98
[2023-01-18] MEDS ORDERED: PALI156D IM (11:44)
== END 2023-01-18 14:20 | disposition home or self-care (01) | DRG 750 ==
LOC: EMS 11:29 → B3A 17:29 → EMS 19:04 → B3A 19:04
PROVIDERS: ADMIT Psychiatry & Neurology Child & Adolescent Psychiatry; ATTEND Psychiatry & Neurology Child & Adolescent Psychiatry
DX: F25.0 Schizoaffective disorder, bipolar type (principal); R45.851 Suicidal ideations; F41.9 Anxiety disorder, unspecified; F43.10 Post-traumatic stress disorder, unspecified; Z20.822 Contact with and (suspected) exposure to COVID-19; R73.9 Hyperglycemia, unspecified; F19.10 Other psychoactive substance abuse, uncomplicated; Z91.030 Bee allergy status; Z91.010 Allergy to peanuts; Z79.899 Other long term (current) drug therapy; Z87.891 Personal history of nicotine dependence
CPT/HCPCS: 80053; 80061; 80307; 81003; 83036; 84443; 85025; 99285; G0480

== ENCOUNTER 2023-02-18 15:03 | Inpatient (IN) | payer MEDICAID, OTHER ==
[~2023-02-18] VITALS: Ht 167.6 cm; Wt 90.5 kg
[~2023-02-18 15:03] MED LIST changes: -BUSP10TA23 PO; +PALI156D IM; -PALI39DI IM
[2023-02-18 16:02] LABS: BASOPHILS % (AUTO) 0.7 % (0.0-2.0); EOSINOPHILS % (AUTO) 2.6 % (1.0-6.0); HEMATOCRIT 43.9 % (41-53); HEMOGLOBIN 14.8 g/dL (13.5-17.5); LYMPHOCYTES # (AUTO) 2.2 K/uL (1.0-4.8); MEAN CORPUSCULAR HEMOGLOBIN 31.8 pg (26.0-34.0); MEAN CORPUSCULAR HGB CONC 33.7 G/dL (31.0-37.0); MEAN CORPUSCULAR VOLUME 94 fL (80-100); MONOCYTES % (AUTO) 8.1 % (2.0-9.0); NEUTROPHILS # (AUTO) 8.5 K/uL (1.8-7.7); NEUTROPHILS % (AUTO) 70.6 % (40.0-70.0); PLATELET COUNT (AUTO) 353 K/uL (150-450); RED BLOOD CELL COUNT(AUTO) 4.65 MIL/uL (4.50-5.90); RED CELL DISTRIBUTION WIDTH 13.1 % (11.5-14.5)
[2023-02-18 16:11] LABS: ANION GAP 7 mmol/L (8-16); CALCIUM, TOTAL 7.8 mg/dL (8.8-10.5); CARBON DIOXIDE 27 mmol/L (22-29); CHLORIDE 104 mmol/L (98-107); GLOMERULAR FILTR. RATE CALC > 60 mL/min (>60); GLUCOSE,RANDOM 94 mg/dL (70-110); POTASSIUM 3.7 mmol/L (3.5-5.1); SODIUM SERUM 138 mmol/L (136-145); UREA NITROGEN, BLOOD 10 mg/dL (7-18)
[2023-02-18 16:14] LABS: ALCOHOL, BLOOD (SERUM) < 3 mg/dL (0-10)
[2023-02-18 16:16] LABS: COVID AG,FIA SOURCE NASAL SWAB
[2023-02-18 16:17] LABS: ALANINE AMINOTRANSFERASE 32 U/L (12-78); ALBUMIN 3.2 g/dL (3.4-5.0); ALKALINE PHOSPHATASE 62 U/L (46-116); ASPARTATE AMINOTRANSFERASE 30 U/L (15-37); BILIRUBIN,TOTAL 0.2 mg/dL (0.1-1.0); TOTAL PROTEIN, SERUM 6.8 g/dL (6.4-8.2)
[2023-02-18 16:33] LABS: SARS-COV2 (COVID) ANTIGEN,FIA Negative (Negative)
[2023-02-18 17:09] LABS: PH,URINE DRUG SCREEN 6.5 (5.0-8.0)
[2023-02-18 17:16] LABS: ALCOHOL, URINE DRUG SCREEN NEGATIVE (NEGATIVE); AMPHET/METH SCREEN,URINE NEGATIVE (NEGATIVE); BARBITURATE SCREEN, URINE NEGATIVE (NEGATIVE); BENZODIAZEPINES SCREEN,URINE NEGATIVE (NEGATIVE); CANNABINOID SCREEN,URINE NEGATIVE (NEGATIVE); COCAINE SCREEN,URINE NEGATIVE (NEGATIVE); METHADONE SCREEN, URINE NEGATIVE (NEGATIVE); OPIATE SCREEN,URINE NEGATIVE (NEGATIVE); PHENCYCLIDINE SCREEN,URINE NEGATIVE (NEGATIVE)
[2023-02-18] MEDS ORDERED: PALI234D IM (18:15)
[2023-02-18] MEDS ORDERED: BUPR-49 PO (18:15)
[2023-02-18] MEDS ORDERED: BUSP10TA23 PO (18:15)
[2023-02-18] MEDS ORDERED: ZOLPIDEM TARTRATE 10 MG TABLET PO PRN (18:15)
[2023-02-19] MEDS: LORazepam 2 MG TABLET PO PRN ×2 (08:50→17:52)
[2023-02-19] MEDS: HALOPERIDOL 5 MG TABLET PO PRN (18:17)
[2023-02-20] MEDS ORDERED: INFLUENZA VIRUS VACCINE QVS 2023-24 (6MO+)/PF 60 MCG/0.5 ML SYRINGE IM. ONE (00:30)
[2023-02-20 06:17] VITALS: RESP 18
[2023-02-20 08:55] VITALS: RESP 17
[2023-02-20] MEDS: LORazepam 2 MG TABLET PO PRN ×2 (09:12→13:24)
[2023-02-20] MEDS ORDERED: NICOTINE 14 MG/24 HOUR PATCH TD PRN (13:15)
[2023-02-20] MEDS ORDERED: ACETAMINOPHEN 325 MG TABLET PO PRN (13:15)
[2023-02-20] MEDS ORDERED: DOCUSATE SODIUM 100 MG CAPSULE PO PRN (13:15)
[2023-02-20] MEDS ORDERED: MAGNESIUM HYDROXIDE SUSPENSION 30 ML UDCUP PO PRN (13:15)
[2023-02-20] MEDS ORDERED: CloNIDine HCL 0.1 MG TABLET PO PRN (13:15)
[2023-02-20] MEDS ORDERED: ALBUTEROL SULFATE HFA 90 MCG/PUFF 8 GM INHALER IH PRN (13:15)
[2023-02-20] MEDS ORDERED: MAG HYDROX/ALUMINUM HYD/SIMETH ES 30 ML SUSPENSION UDCUP PO PRN (13:15)
[2023-02-20] MEDS ORDERED: LOPERAMIDE HCL 2 MG CAPSULE PO PRN (13:15)
[2023-02-20] MEDS ORDERED: IBUPROFEN 400 MG TABLET PO PRN (13:15)
[2023-02-20] MEDS ORDERED: PETROLATUM,WHITE 28 GM JELLY TP PRN (13:15)
[2023-02-20] MEDS ORDERED: GuaiFENesin/D-METHORPHAN [SUGAR-FREE] 200-20MG/10 ML SYRUP UDCUP PO PRN (13:15)
[2023-02-20] MEDS ORDERED: ONDANSETRON HCL 4 MG TABLET PO PRN (13:15)
[2023-02-20] MEDS: BuPROPion HCL 150 MG SR TABLET PO SCH (14:25)
[2023-02-20] MEDS: BusPIRone HCL 10 MG TABLET PO SCH (18:36)
[2023-02-20 20:19] VITALS: RESP 18
[2023-02-21 06:17] LABS: HEMOGLOBIN A1C 5.2 % (3.8-5.6)
[2023-02-21 06:29] LABS: THYROID STIMULATING HORMONE 3.12 uIU/mL (0.36-3.74)
[2023-02-21 07:18] LABS: CHOL/HDL RATIO 3.1 (4.2-7.3)
[2023-02-21] MEDS: BuPROPion HCL 150 MG SR TABLET PO SCH (08:02)
[2023-02-21] MEDS: BusPIRone HCL 10 MG TABLET PO SCH ×2 (08:02→16:07)
[2023-02-21] MEDS: LORazepam 2 MG TABLET PO PRN (08:03)
[2023-02-21] MEDS ORDERED: LORazepam 2 MG/ML VIAL IM ONE (08:30)
[2023-02-21] MEDS ORDERED: DiphenhydrAMINE HCL 50 MG/ML VIAL IM ONE (08:30)
[2023-02-21] MEDS ORDERED: HALOPERIDOL LACTATE 5 MG/ML VIAL IM ONE (08:30)
[2023-02-21 12:37] VITALS: BP 131/76; PULSE 75; TEMP 98; O2SAT 96
[2023-02-21 20:16] VITALS: RESP 18
[2023-02-22 08:25] VITALS: BP 140/80; PULSE 71; RESP 18; TEMP 96.5; O2SAT 98
[2023-02-22] MEDS: BuPROPion HCL 150 MG SR TABLET PO SCH (10:16)
[2023-02-22] MEDS: HALOPERIDOL 5 MG TABLET PO PRN (10:16)
[2023-02-22] MEDS: BusPIRone HCL 10 MG TABLET PO SCH ×2 (10:16→18:16)
[2023-02-22] MEDS: LORazepam 2 MG TABLET PO PRN (10:16)
[2023-02-22 12:33] LABS: APPEARANCE,URINE CLEAR (CLEAR); BILIRUBIN,URINE NEGATIVE (NEGATIVE); COLOR,URINE COLORLESS (YELLOW); GLUCOSE, URINE (UA) NEGATIVE (NEGATIVE); KETONES,URINE NEGATIVE (NEGATIVE); LEUKOCYTE ESTERASE ,URINE NEGATIVE (NEGATIVE); NITRATE,URINE NEGATIVE (NEGATIVE); OCCULT BLOOD,URINE NEGATIVE (NEGATIVE); PROTEIN,URINE NEGATIVE (NEGATIVE); SPECIFIC GRAVITIY, URINE 1.005 (1.003-1.030); UROBILINOGEN,URINE <=1.0 mg/dL (<=1.0)
[2023-02-22 12:38] LABS: AMPHET/METH SCREEN,URINE NEGATIVE (NEGATIVE); BARBITURATE SCREEN, URINE NEGATIVE (NEGATIVE); BENZODIAZEPINES SCREEN,URINE NEGATIVE (NEGATIVE); CANNABINOID SCREEN,URINE NEGATIVE (NEGATIVE); COCAINE SCREEN,URINE NEGATIVE (NEGATIVE); METHADONE SCREEN, URINE NEGATIVE (NEGATIVE); OPIATE SCREEN,URINE NEGATIVE (NEGATIVE); PHENCYCLIDINE SCREEN,URINE NEGATIVE (NEGATIVE)
[2023-02-22 12:39] LABS: ALCOHOL, URINE DRUG SCREEN NEGATIVE (NEGATIVE)
[2023-02-22 21:53] VITALS: BP 138/78; PULSE 78; RESP 18; TEMP 97.2; O2SAT 97
[2023-02-23] MEDS ORDERED: BUPR-113 PO (06:08)
[2023-02-23] MEDS ORDERED: BUSP10TA23 PO (06:08)
[2023-02-23] MEDS: BuPROPion HCL 150 MG SR TABLET PO SCH (08:06)
[2023-02-23] MEDS: BusPIRone HCL 10 MG TABLET PO SCH ×2 (08:06→17:00)
[2023-02-23 08:52] VITALS: BP 162/90; PULSE 72; RESP 19; TEMP 97; O2SAT 95
== END 2023-02-23 15:58 | disposition home or self-care (01) | DRG 750 ==
LOC: EMS 15:10 → 3EC 02-19 21:05
PROVIDERS: ADMIT Psychiatry & Neurology Psychiatry; ATTEND Psychiatry & Neurology Psychiatry
DX: F25.1 Schizoaffective disorder, depressive type (principal); R45.851 Suicidal ideations; D72.829 Elevated white blood cell count, unspecified; F41.9 Anxiety disorder, unspecified; G47.00 Insomnia, unspecified; Z20.822 Contact with and (suspected) exposure to COVID-19; F17.210 Nicotine dependence, cigarettes, uncomplicated; Z91.010 Allergy to peanuts; Z91.030 Bee allergy status
CPT/HCPCS: 80053; 80061; 80307; 81003; 83036; 84443; 85025; 87081; 99285; G0480; J1200; J1630

== ENCOUNTER 2023-03-21 10:57 | Emergency (ER) | payer MEDICAID, OTHER ==
[~2023-03-21] VITALS: Ht 172.7 cm; Wt 90.9 kg
[~2023-03-21 10:57] MED LIST changes: +BUPR-113 PO; +BUSP10TA23 PO; -PALI156D IM; +PALI234D IM
[2023-03-21 11:08] VITALS: BP 132/72; PULSE 96; RESP 18; TEMP 98.6
[2023-03-21 12:02] LABS: PH,URINE DRUG SCREEN 5.5 (5.0-8.0)
[2023-03-21 12:08] LABS: ALCOHOL, URINE DRUG SCREEN NEGATIVE (NEGATIVE); AMPHET/METH SCREEN,URINE NEGATIVE (NEGATIVE); BARBITURATE SCREEN, URINE NEGATIVE (NEGATIVE); BENZODIAZEPINES SCREEN,URINE NEGATIVE (NEGATIVE); CANNABINOID SCREEN,URINE NEGATIVE (NEGATIVE); COCAINE SCREEN,URINE NEGATIVE (NEGATIVE); METHADONE SCREEN, URINE NEGATIVE (NEGATIVE); OPIATE SCREEN,URINE NEGATIVE (NEGATIVE); PHENCYCLIDINE SCREEN,URINE NEGATIVE (NEGATIVE)
[2023-03-21] MEDS ORDERED: LORazepam 1 MG TABLET PO ONE (12:15)
[2023-03-21 12:17] LABS: BASOPHILS % (AUTO) 0.9 % (0.0-2.0); EOSINOPHILS % (AUTO) 1.5 % (1.0-6.0); HEMATOCRIT 43.9 % (41-53); HEMOGLOBIN 15.2 g/dL (13.5-17.5); LYMPHOCYTES # (AUTO) 1.6 K/uL (1.0-4.8); LYMPHOCYTES % (AUTO) 14.8 % (22.0-44.0); MEAN CORPUSCULAR HEMOGLOBIN 32.6 pg (26.0-34.0); MEAN CORPUSCULAR HGB CONC 34.5 G/dL (31.0-37.0); MEAN CORPUSCULAR VOLUME 95 fL (80-100); MONOCYTES # (AUTO) 1.1 K/uL (0.1-1.0); NEUTROPHILS % (AUTO) 72.8 % (40.0-70.0); PLATELET COUNT (AUTO) 342 K/uL (150-450); RED BLOOD CELL COUNT(AUTO) 4.64 MIL/uL (4.50-5.90); RED CELL DISTRIBUTION WIDTH 13.8 % (11.5-14.5)
[2023-03-21 12:20] LABS: ANION GAP 7 mmol/L (8-16); CALCIUM, TOTAL 7.6 mg/dL (8.8-10.5); CARBON DIOXIDE 26 mmol/L (22-29); CHLORIDE 102 mmol/L (98-107); CREATININE 0.85 mg/dL (0.60-1.30); GLOMERULAR FILTR. RATE CALC > 60 mL/min (>60); GLUCOSE,RANDOM 134 mg/dL (70-110); POTASSIUM 3.6 mmol/L (3.5-5.1); SODIUM SERUM 135 mmol/L (136-145); UREA NITROGEN, BLOOD 6 mg/dL (7-18)
[2023-03-21 12:25] LABS: ALANINE AMINOTRANSFERASE 42 U/L (12-78); ALKALINE PHOSPHATASE 63 U/L (46-116); ASPARTATE AMINOTRANSFERASE 31 U/L (15-37); BILIRUBIN,TOTAL 0.3 mg/dL (0.1-1.0); TOTAL PROTEIN, SERUM 6.4 g/dL (6.4-8.2)
[2023-03-21 12:55] LABS: ALCOHOL, BLOOD (SERUM) < 3 mg/dL (0-10)
[2023-03-21] MEDS ORDERED: HALOPERIDOL 5 MG TABLET PO PRN (13:15)
[2023-03-21] MEDS ORDERED: LORazepam 2 MG TABLET PO PRN (13:15)
[2023-03-21] MEDS ORDERED: ZOLPIDEM TARTRATE 10 MG TABLET PO PRN (13:15)
[2023-03-21 14:14] LABS: COVID AG,FIA SOURCE NASAL SWAB
[2023-03-21 14:17] LABS: SARS-COV2 (COVID) ANTIGEN,FIA Negative (Negative)
== END 2023-03-21 18:30 | disposition admitted as inpatient to this hospital (09) ==
LOC: EMS 10:57
DX: F25.1 Schizoaffective disorder, depressive type (principal); J45.909 Unspecified asthma, uncomplicated; F17.210 Nicotine dependence, cigarettes, uncomplicated; Z91.010 Allergy to peanuts; Z91.040 Latex allergy status; Z20.822 Contact with and (suspected) exposure to COVID-19
CPT/HCPCS: 99284; 87426; 80053; 85025; 36415; 80307; G0480

== ENCOUNTER 2023-03-22 15:13 | Inpatient (IN) | payer MEDICAID, OTHER ==
[~2023-03-22] VITALS: Ht 165.1 cm; Wt 95.7 kg
[2023-03-22 15:52] LABS: BASOPHILS % (AUTO) 0.9 % (0.0-2.0); EOSINOPHILS % (AUTO) 2.6 % (1.0-6.0); HEMATOCRIT 38.7 % (41-53); LYMPHOCYTES # (AUTO) 2.1 K/uL (1.0-4.8); LYMPHOCYTES % (AUTO) 18.6 % (22.0-44.0); MEAN CORPUSCULAR HEMOGLOBIN 31.8 pg (26.0-34.0); MEAN CORPUSCULAR HGB CONC 33.5 G/dL (31.0-37.0); MEAN CORPUSCULAR VOLUME 95 fL (80-100); MONOCYTES # (AUTO) 1.5 K/uL (0.1-1.0); MONOCYTES % (AUTO) 12.9 % (2.0-9.0); NEUTROPHILS # (AUTO) 7.5 K/uL (1.8-7.7); PLATELET COUNT (AUTO) 307 K/uL (150-450); RED BLOOD CELL COUNT(AUTO) 4.08 MIL/uL (4.50-5.90); RED CELL DISTRIBUTION WIDTH 13.5 % (11.5-14.5); WHITE BLOOD COUNT (AUTO) 11.5 K/uL (4.5-11.0)
[2023-03-22] MEDS ORDERED: ZIPRASIDONE MESYLATE 20 MG/VIAL IM ONE (16:00)
[2023-03-22] MEDS ORDERED: LORazepam 2 MG/ML VIAL IM ONE (16:00)
[2023-03-22 16:01] LABS: ANION GAP 3 mmol/L (8-16); CARBON DIOXIDE 29 mmol/L (22-29); CHLORIDE 106 mmol/L (98-107); GLUCOSE,RANDOM 104 mg/dL (70-110); POTASSIUM 3.5 mmol/L (3.5-5.1); SODIUM SERUM 138 mmol/L (136-145); UREA NITROGEN, BLOOD 10 mg/dL (7-18)
[2023-03-22 16:02] LABS: CALCIUM, TOTAL 8.1 mg/dL (8.8-10.5); GLOMERULAR FILTR. RATE CALC > 60 mL/min (>60)
[2023-03-22 16:03] LABS: ALCOHOL, BLOOD (SERUM) < 3 mg/dL (0-10)
[2023-03-22 16:07] LABS: ALANINE AMINOTRANSFERASE 40 U/L (12-78); ALBUMIN 2.7 g/dL (3.4-5.0); ALKALINE PHOSPHATASE 58 U/L (46-116); ASPARTATE AMINOTRANSFERASE 35 U/L (15-37); BILIRUBIN,TOTAL 0.1 mg/dL (0.1-1.0); TOTAL PROTEIN, SERUM 5.8 g/dL (6.4-8.2)
[2023-03-22 16:12] LABS: COVID AG,FIA SOURCE NASAL SWAB
[2023-03-22 16:19] LABS: SARS-COV2 (COVID) ANTIGEN,FIA Negative (Negative)
[2023-03-22 18:23] LABS: AMPHET/METH SCREEN,URINE NEGATIVE (NEGATIVE); BARBITURATE SCREEN, URINE NEGATIVE (NEGATIVE); BENZODIAZEPINES SCREEN,URINE NEGATIVE (NEGATIVE); CANNABINOID SCREEN,URINE NEGATIVE (NEGATIVE); COCAINE SCREEN,URINE NEGATIVE (NEGATIVE); METHADONE SCREEN, URINE NEGATIVE (NEGATIVE); OPIATE SCREEN,URINE NEGATIVE (NEGATIVE); PHENCYCLIDINE SCREEN,URINE NEGATIVE (NEGATIVE)
[2023-03-22 18:28] LABS: ALCOHOL, URINE DRUG SCREEN NEGATIVE (NEGATIVE)
[2023-03-22] MEDS ORDERED: ZOLPIDEM TARTRATE 10 MG TABLET PO PRN (18:30)
[2023-03-23] MEDS: HALOPERIDOL 5 MG TABLET PO PRN ×3 (07:34→20:31)
[2023-03-23] MEDS: LORazepam 2 MG TABLET PO PRN ×3 (07:34→20:31)
[2023-03-23 08:26] VITALS: BP 142/72; PULSE 95; RESP 18; TEMP 97.3; O2SAT 94
[2023-03-23] MEDS: RisperiDONE 1 MG TABLET PO SCH ×2 (09:37→17:21)
[2023-03-23 20:18] VITALS: RESP 18; TEMP 97.7
[2023-03-24] MEDS: LORazepam 2 MG TABLET PO PRN ×3 (07:13→17:09)
[2023-03-24 08:14] VITALS: BP 145/64; PULSE 78; RESP 18; TEMP 97.7; O2SAT 99
[2023-03-24] MEDS: RisperiDONE 1 MG TABLET PO SCH ×2 (08:15→17:08)
[2023-03-24] MEDS: HALOPERIDOL 5 MG TABLET PO PRN ×2 (13:06→17:09)
[2023-03-24 20:25] VITALS: BP 133/76; PULSE 66; RESP 18; TEMP 97.8; O2SAT 98
[2023-03-25] MEDS: LORazepam 2 MG TABLET PO PRN (08:08)
[2023-03-25] MEDS: RisperiDONE 1 MG TABLET PO SCH (08:08)
[2023-03-25] MEDS: HALOPERIDOL 5 MG TABLET PO PRN (08:08)
[2023-03-25 08:27] VITALS: BP 128/60; PULSE 82; RESP 18; TEMP 97.8; O2SAT 97
[2023-03-25] MEDS ORDERED: RISP1TAB98 PO (12:16)
== END 2023-03-25 13:00 | disposition home or self-care (01) | DRG 750 ==
LOC: EMS 15:33 → B3A 20:19
PROVIDERS: ADMIT Psychiatry & Neurology Child & Adolescent Psychiatry; ATTEND Psychiatry & Neurology Psychiatry
DX: F25.1 Schizoaffective disorder, depressive type (principal); E44.0 Moderate protein-calorie malnutrition; R45.851 Suicidal ideations; J45.909 Unspecified asthma, uncomplicated; Z20.822 Contact with and (suspected) exposure to COVID-19; F17.210 Nicotine dependence, cigarettes, uncomplicated; Z79.899 Other long term (current) drug therapy; Z91.010 Allergy to peanuts; Z91.030 Bee allergy status; Z68.35 Body mass index [BMI] 35.0-35.9, adult; Z59.00 Homelessness unspecified
CPT/HCPCS: 80053; 80307; 85025; 87081; 99285; G0480; J2060; J3486

== ENCOUNTER 2023-06-21 21:50 | Inpatient (IN) | payer MEDICAID, OTHER ==
[~2023-06-21] VITALS: Ht 167.6 cm; Wt 94.0 kg
[~2023-06-21 21:50] MED LIST changes: -BUPR-113 PO; -BUSP10TA23 PO; -PALI234D IM; +RISP-31 PO
[2023-06-21 23:18] LABS: BASOPHILS % (AUTO) 1.3 % (0.0-2.0); EOSINOPHILS % (AUTO) 2.7 % (1.0-6.0); HEMATOCRIT 38.8 % (41-53); HEMOGLOBIN 13.1 g/dL (13.5-17.5); LYMPHOCYTES # (AUTO) 2.6 K/uL (1.0-4.8); LYMPHOCYTES % (AUTO) 28.1 % (22.0-44.0); MEAN CORPUSCULAR HEMOGLOBIN 31.7 pg (26.0-34.0); MEAN CORPUSCULAR HGB CONC 33.8 G/dL (31.0-37.0); MEAN CORPUSCULAR VOLUME 94 fL (80-100); MONOCYTES # (AUTO) 1.1 K/uL (0.1-1.0); MONOCYTES % (AUTO) 11.8 % (2.0-9.0); NEUTROPHILS # (AUTO) 5.3 K/uL (1.8-7.7); NEUTROPHILS % (AUTO) 56.1 % (40.0-70.0); PLATELET COUNT (AUTO) 350 K/uL (150-450); RED BLOOD CELL COUNT(AUTO) 4.13 MIL/uL (4.50-5.90); RED CELL DISTRIBUTION WIDTH 13.6 % (11.5-14.5); WHITE BLOOD COUNT (AUTO) 9.4 K/uL (4.5-11.0)
[2023-06-21 23:28] LABS: ANION GAP 8 mmol/L (8-16); CALCIUM, TOTAL 8.4 mg/dL (8.8-10.5); CARBON DIOXIDE 27 mmol/L (22-29); CHLORIDE 102 mmol/L (98-107); CREATININE 0.71 mg/dL (0.60-1.30); GLOMERULAR FILTR. RATE CALC > 60 mL/min (>60); GLUCOSE,RANDOM 98 mg/dL (70-110); POTASSIUM 3.3 mmol/L (3.5-5.1); SODIUM SERUM 137 mmol/L (136-145); UREA NITROGEN, BLOOD 5 mg/dL (7-18)
[2023-06-21 23:34] LABS: ALANINE AMINOTRANSFERASE 49 U/L (12-78); ALKALINE PHOSPHATASE 53 U/L (46-116); ASPARTATE AMINOTRANSFERASE 49 U/L (15-37); BILIRUBIN,TOTAL 0.3 mg/dL (0.1-1.0); TOTAL PROTEIN, SERUM 6.5 g/dL (6.4-8.2)
[2023-06-21 23:39] LABS: COVID AG,FIA SOURCE NASAL SWAB
[2023-06-21 23:44] LABS: ALCOHOL, BLOOD (SERUM) < 3 mg/dL (0-10)
[2023-06-22 00:03] LABS: ALCOHOL, URINE DRUG SCREEN NEGATIVE (NEGATIVE); AMPHET/METH SCREEN,URINE NEGATIVE (NEGATIVE); BARBITURATE SCREEN, URINE NEGATIVE (NEGATIVE); BENZODIAZEPINES SCREEN,URINE NEGATIVE (NEGATIVE); CANNABINOID SCREEN,URINE NEGATIVE (NEGATIVE); COCAINE SCREEN,URINE NEGATIVE (NEGATIVE); METHADONE SCREEN, URINE NEGATIVE (NEGATIVE); OPIATE SCREEN,URINE NEGATIVE (NEGATIVE); PHENCYCLIDINE SCREEN,URINE NEGATIVE (NEGATIVE)
[2023-06-22 00:14] LABS: SARS-COV2 (COVID) ANTIGEN,FIA Negative (Negative)
[2023-06-22] MEDS ORDERED: DiphenhydrAMINE HCL 50 MG/ML VIAL ONE (02:36)
[2023-06-22] MEDS ORDERED: LORazepam 2 MG/ML VIAL ONE (02:36)
[2023-06-22] MEDS ORDERED: HALOPERIDOL LACTATE 5 MG/ML VIAL ONE (02:36)
[2023-06-22] MEDS: DiphenhydrAMINE HCL 50 MG/ML VIAL IM ONE (02:46)
[2023-06-22] MEDS: POTASSIUM CHLORIDE 20 MEQ ER TABLET PO ONE (02:47)
[2023-06-22] MEDS: LORazepam 2 MG/ML VIAL IM ONE (02:47)
[2023-06-22] MEDS: HALOPERIDOL LACTATE 5 MG/ML VIAL IM ONE (02:47)
[2023-06-22 08:23] VITALS: BP 130/88; PULSE 100; RESP 18; TEMP 97.8; O2SAT 97
[2023-06-22] MEDS ORDERED: PALI234D IM (09:51)
[2023-06-22] MEDS: LORazepam 2 MG TABLET PO PRN (16:05)
[2023-06-22] MEDS: HALOPERIDOL 5 MG TABLET PO PRN (16:05)
[2023-06-22] MEDS ORDERED: ALBUTEROL SULFATE HFA 90 MCG/PUFF 8 GM INHALER IH PRN (19:45)
[2023-06-22] MEDS ORDERED: NICOTINE 14 MG/24 HOUR PATCH TD PRN (19:45)
[2023-06-22] MEDS ORDERED: PETROLATUM,WHITE 28 GM JELLY TP PRN (19:45)
[2023-06-22] MEDS ORDERED: GuaiFENesin/D-METHORPHAN [SUGAR-FREE] 200-20MG/10 ML SYRUP UDCUP PO PRN (19:45)
[2023-06-22] MEDS ORDERED: LOPERAMIDE HCL 2 MG CAPSULE PO PRN (19:45)
[2023-06-22] MEDS ORDERED: DOCUSATE SODIUM 100 MG CAPSULE PO PRN (19:45)
[2023-06-22] MEDS ORDERED: MAGNESIUM HYDROXIDE SUSPENSION 30 ML UDCUP PO PRN (19:45)
[2023-06-22] MEDS ORDERED: IBUPROFEN 400 MG TABLET PO PRN (19:45)
[2023-06-22] MEDS ORDERED: ACETAMINOPHEN 325 MG TABLET PO PRN (19:45)
[2023-06-22] MEDS ORDERED: CloNIDine HCL 0.1 MG TABLET PO PRN (19:45)
[2023-06-22 20:02] VITALS: BP 136/92; PULSE 98; RESP 19; TEMP 98.2; O2SAT 98
[2023-06-23 08:07] LABS: HEMOGLOBIN A1C 5.1 % (3.8-5.6)
[2023-06-23 08:19] VITALS: BP 128/52; PULSE 84; RESP 17; TEMP 97.2; O2SAT 96
[2023-06-23 08:45] LABS: FREE T4 (FREE THYROXINE) 1.21 ng/dL (0.76-1.46); POTASSIUM 4.1 mmol/L (3.5-5.1); THYROID STIMULATING HORMONE 0.99 uIU/mL (0.36-3.74)
[2023-06-23] MEDS: BusPIRone HCL 10 MG TABLET PO SCH (11:28)
[2023-06-23 20:19] VITALS: BP 132/64; PULSE 76; RESP 18; TEMP 98.2; O2SAT 99
[2023-06-24 08:30] VITALS: BP 116/74; PULSE 89; RESP 18; TEMP 97.5; O2SAT 98
[2023-06-24 21:34] VITALS: BP 126/68; PULSE 72; RESP 19; TEMP 98.2; O2SAT 100
[2023-06-25 08:05] VITALS: BP 133/66; PULSE 71; RESP 18; TEMP 98.2; O2SAT 95
[2023-06-25 23:05] VITALS: BP 131/78; PULSE 78; RESP 18; TEMP 98
[2023-06-26 08:26] VITALS: BP 124/87; PULSE 73; RESP 18; TEMP 97.6; O2SAT 98
[2023-06-26 21:24] VITALS: BP 132/72; PULSE 68; RESP 19; TEMP 98.2; O2SAT 98
[2023-06-27 08:15] VITALS: BP 127/70; PULSE 75; RESP 17; TEMP 97.8; O2SAT 97
[2023-06-27] MEDS: ONDANSETRON HCL 4 MG TABLET PO PRN (16:22)
[2023-06-27 23:21] VITALS: BP 132/68; PULSE 72; RESP 19; TEMP 97.8; O2SAT 98
[2023-06-28 08:18] VITALS: BP 125/69; PULSE 68; RESP 18; TEMP 97.9; O2SAT 98
[2023-06-28 22:45] VITALS: BP 121/70; PULSE 65; RESP 18; TEMP 98; O2SAT 98
[2023-06-29 09:20] VITALS: BP 124/86; PULSE 91; RESP 18; TEMP 98.1; O2SAT 98
[2023-06-29 20:00] VITALS: BP 136/67; PULSE 78; RESP 19; TEMP 97.6; O2SAT 99
[2023-06-30 08:20] VITALS: BP 114/61; PULSE 67; RESP 16; TEMP 98; O2SAT 96
[2023-06-30] MEDS: MAG HYDROX/ALUMINUM HYD/SIMETH ES 30 ML SUSPENSION UDCUP PO PRN (16:35)
[2023-06-30 21:16] VITALS: BP 136/70; PULSE 71; RESP 17; TEMP 98; O2SAT 98
[2023-07-01 09:00] VITALS: BP 155/78; PULSE 77; RESP 18; TEMP 98.4; O2SAT 97
[2023-07-01 23:36] VITALS: BP 126/76; PULSE 64; RESP 19; TEMP 97.6; O2SAT 99
[2023-07-02] MEDS: INFLUENZA VIRUS VACCINE QVS 2023-24 (6MO+)/PF 60 MCG/0.5 ML SYRINGE IM. ONE (06:00)
[2023-07-02 08:32] VITALS: BP 124/75; PULSE 82; RESP 18; TEMP 97.6; O2SAT 95
[2023-07-03 02:16] VITALS: BP 120/70; PULSE 81; RESP 17; TEMP 97.3
[2023-07-03 08:18] VITALS: BP 118/65; PULSE 82; RESP 18; TEMP 98.2; O2SAT 97
[2023-07-03] MEDS: PALIPERIDONE PALMITATE 234 MG/1.5 ML SYRINGE IM SCH (08:30)
[2023-07-03 23:40] VITALS: BP 125/72; PULSE 94; RESP 18; TEMP 97.4; O2SAT 63
[2023-07-04 08:20] VITALS: BP 133/73; PULSE 95; RESP 18; TEMP 97.9; O2SAT 98
[2023-07-04] MEDS ORDERED: BUSP10TA23 PO ×2 (11:59→13:31)
[2023-07-04] MEDS ORDERED: PALI234D IM (13:31)
== END 2023-07-04 12:35 | disposition home or self-care (01) | DRG 750 ==
LOC: EMS 21:51 → B3A 06-22 01:10
PROVIDERS: ADMIT Psychiatry & Neurology Psychiatry; ATTEND Psychiatry & Neurology Psychiatry
PROC: GZHZZZZ Group Psychotherapy (ICD-10-PCS; principal; 2023-06-22)
PROC: GZ56ZZZ Individual Psychotherapy, Supportive (ICD-10-PCS; 2023-06-22)
DX: F20.0 Paranoid schizophrenia (principal); R45.851 Suicidal ideations; S00.03XA Contusion of scalp, initial encounter; D72.829 Elevated white blood cell count, unspecified; E87.6 Hypokalemia; F17.200 Nicotine dependence, unspecified, uncomplicated; Z20.822 Contact with and (suspected) exposure to COVID-19; J45.909 Unspecified asthma, uncomplicated; W22.01XA Walked into wall, initial encounter; Z59.00 Homelessness unspecified; Z79.899 Other long term (current) drug therapy; Z91.010 Allergy to peanuts; Z91.51 Personal history of suicidal behavior; Z88.8 Allergy status to other drugs, medicaments and biological substances; Z91.030 Bee allergy status; Y93.89 Activity, other specified; Y92.89 Other specified places as the place of occurrence of the external cause; Y99.8 Other external cause status
CPT/HCPCS: 80053; 80061; 80307; 83036; 84132; 84439; 84443; 85025; 99285; G0480; J1200; J1630; J2060; Q0162

== ENCOUNTER 2023-09-28 22:28 | Inpatient (IN) | payer MEDICAID, OTHER ==
[~2023-09-28] VITALS: Ht 165.1 cm; Wt 99.0 kg
[~2023-09-28 22:28] MED LIST changes: +BUSP10TA23 PO; +PALI234D IM; -RISP-31 PO
[2023-09-29 01:23] LABS: BASOPHILS % (AUTO) 1.1 % (0.0-2.0); HEMATOCRIT 43.2 % (41-53); HEMOGLOBIN 14.7 g/dL (13.5-17.5); LYMPHOCYTES # (AUTO) 2.9 K/uL (1.0-4.8); LYMPHOCYTES % (AUTO) 22.8 % (22.0-44.0); MEAN CORPUSCULAR HEMOGLOBIN 32.1 pg (26.0-34.0); MEAN CORPUSCULAR HGB CONC 34.1 G/dL (31.0-37.0); MEAN CORPUSCULAR VOLUME 94 fL (80-100); MONOCYTES # (AUTO) 1.3 K/uL (0.1-1.0); MONOCYTES % (AUTO) 10.5 % (2.0-9.0); NEUTROPHILS # (AUTO) 7.8 K/uL (1.8-7.7); NEUTROPHILS % (AUTO) 61.6 % (40.0-70.0); PLATELET COUNT (AUTO) 336 K/uL (150-450); RED BLOOD CELL COUNT(AUTO) 4.59 MIL/uL (4.50-5.90); RED CELL DISTRIBUTION WIDTH 12.9 % (11.5-14.5); WHITE BLOOD COUNT (AUTO) 12.6 K/uL (4.5-11.0)
[2023-09-29 01:29] LABS: ANION GAP 7 mmol/L (8-16); CALCIUM, TOTAL 8.2 mg/dL (8.8-10.5); CARBON DIOXIDE 26 mmol/L (22-29); CHLORIDE 105 mmol/L (98-107); CREATININE 0.72 mg/dL (0.60-1.30); GLOMERULAR FILTR. RATE CALC > 60 mL/min (>60); GLUCOSE,RANDOM 101 mg/dL (70-110); POTASSIUM 3.7 mmol/L (3.5-5.1); SODIUM SERUM 138 mmol/L (136-145); UREA NITROGEN, BLOOD 10 mg/dL (7-18)
[2023-09-29 01:47] LABS: ALCOHOL, BLOOD (SERUM) < 3 mg/dL (0-10)
[2023-09-29 08:17] LABS: COVID AG,FIA SOURCE NASAL SWAB
[2023-09-29 09:04] LABS: SARS-COV2 (COVID) ANTIGEN,FIA Negative (Negative)
[2023-09-29] MEDS ORDERED: ZOLPIDEM TARTRATE 10 MG TABLET PO PRN (09:15)
[2023-09-29] MEDS ORDERED: HALOPERIDOL 5 MG TABLET PO PRN (09:15)
[2023-09-29 10:15] VITALS: BP 122/62; PULSE 67; RESP 16; TEMP 98.2; O2SAT 98
[2023-09-29] MEDS: LORazepam 2 MG TABLET PO PRN (11:39)
[2023-09-29] MEDS ORDERED: HydrOXYzine PAMOATE 25 MG CAPSULE PO PRN (15:15)
[2023-09-29 21:08] VITALS: BP 158/76; PULSE 76; RESP 18; TEMP 98.4; O2SAT 97
[2023-09-29] MEDS: BusPIRone HCL 10 MG TABLET PO SCH (21:33)
[2023-09-30 07:48] LABS: BASOPHILS % (AUTO) 0.7 % (0.0-2.0); EOSINOPHILS % (AUTO) 3.4 % (1.0-6.0); HEMATOCRIT 46.1 % (41-53); HEMOGLOBIN 15.5 g/dL (13.5-17.5); LYMPHOCYTES # (AUTO) 3.4 K/uL (1.0-4.8); LYMPHOCYTES % (AUTO) 27.6 % (22.0-44.0); MEAN CORPUSCULAR HEMOGLOBIN 31.6 pg (26.0-34.0); MEAN CORPUSCULAR HGB CONC 33.6 G/dL (31.0-37.0); MEAN CORPUSCULAR VOLUME 94 fL (80-100); MONOCYTES # (AUTO) 1.1 K/uL (0.1-1.0); MONOCYTES % (AUTO) 8.8 % (2.0-9.0); NEUTROPHILS # (AUTO) 7.4 K/uL (1.8-7.7); NEUTROPHILS % (AUTO) 59.5 % (40.0-70.0); PLATELET COUNT (AUTO) 365 K/uL (150-450); RED CELL DISTRIBUTION WIDTH 12.9 % (11.5-14.5); WHITE BLOOD COUNT (AUTO) 12.4 K/uL (4.5-11.0)
[2023-09-30] MEDS: BuPROPion HCL XL 150 MG ER TABLET PO SCH (08:10)
[2023-09-30 08:17] LABS: ALANINE AMINOTRANSFERASE 30 U/L (12-78); ALBUMIN 2.9 g/dL (3.4-5.0); ALKALINE PHOSPHATASE 58 U/L (46-116); ANION GAP 5 mmol/L (8-16); ASPARTATE AMINOTRANSFERASE 24 U/L (15-37); BILIRUBIN,TOTAL 0.4 mg/dL (0.1-1.0); CARBON DIOXIDE 30 mmol/L (22-29); CHLORIDE 104 mmol/L (98-107); CHOLESTEROL 211 mg/dL (131-200); CREATININE 0.83 mg/dL (0.60-1.30); FREE T4 (FREE THYROXINE) 1.03 ng/dL (0.76-1.46); GLOMERULAR FILTR. RATE CALC > 60 mL/min (>60); GLUCOSE,RANDOM 101 mg/dL (70-110); HDL CHOLESTEROL 53 mg/dL (40-60); LDL CHOL (CALC.) 130 mg/dL (0-130); POTASSIUM 4.2 mmol/L (3.5-5.1); SODIUM SERUM 139 mmol/L (136-145); T4 (THYROXINE) 8.9 mcg/dL (4.7-13.3); THYROID STIMULATING HORMONE 1.16 uIU/mL (0.36-3.74); TOTAL PROTEIN, SERUM 6.7 g/dL (6.4-8.2); TRIGLYCERIDES 139 mg/dL (15-150); UREA NITROGEN, BLOOD 9 mg/dL (7-18)
[2023-09-30 08:27] LABS: APPEARANCE,URINE CLEAR (CLEAR); BILIRUBIN,URINE NEGATIVE (NEGATIVE); COLOR,URINE LIGHT YELLOW (YELLOW); GLUCOSE, URINE (UA) NEGATIVE (NEGATIVE); KETONES,URINE NEGATIVE (NEGATIVE); LEUKOCYTE ESTERASE ,URINE NEGATIVE (NEGATIVE); NITRATE,URINE NEGATIVE (NEGATIVE); OCCULT BLOOD,URINE NEGATIVE (NEGATIVE); PH,URINE 7.5 (5.0-8.0); PH,URINE DRUG SCREEN 7.5 (5.0-8.0); PROTEIN,URINE NEGATIVE (NEGATIVE); UROBILINOGEN,URINE <=1.0 mg/dL (<=1.0)
[2023-09-30 08:40] LABS: ALCOHOL, URINE DRUG SCREEN NEGATIVE (NEGATIVE); AMPHET/METH SCREEN,URINE NEGATIVE (NEGATIVE); BARBITURATE SCREEN, URINE NEGATIVE (NEGATIVE); BENZODIAZEPINES SCREEN,URINE NEGATIVE (NEGATIVE); CANNABINOID SCREEN,URINE NEGATIVE (NEGATIVE); COCAINE SCREEN,URINE NEGATIVE (NEGATIVE); METHADONE SCREEN, URINE NEGATIVE (NEGATIVE); OPIATE SCREEN,URINE NEGATIVE (NEGATIVE); PHENCYCLIDINE SCREEN,URINE NEGATIVE (NEGATIVE)
[2023-09-30 10:25] VITALS: BP 145/68; PULSE 82; RESP 19; TEMP 96.9; O2SAT 98
[2023-09-30] MEDS ORDERED: DOCUSATE SODIUM 100 MG CAPSULE PO PRN (13:30)
[2023-09-30] MEDS ORDERED: MAGNESIUM HYDROXIDE SUSPENSION 30 ML UDCUP PO PRN (13:30)
[2023-09-30] MEDS ORDERED: ALBUTEROL SULFATE HFA 90 MCG/PUFF 8 GM INHALER IH PRN (13:30)
[2023-09-30] MEDS ORDERED: GuaiFENesin/D-METHORPHAN [SUGAR-FREE] 200-20MG/10 ML SYRUP UDCUP PO PRN (13:30)
[2023-09-30] MEDS ORDERED: MAG HYDROX/ALUMINUM HYD/SIMETH ES 30 ML SUSPENSION UDCUP PO PRN (13:30)
[2023-09-30] MEDS ORDERED: NICOTINE 14 MG/24 HOUR PATCH TD PRN (13:30)
[2023-09-30] MEDS ORDERED: LOPERAMIDE HCL 2 MG CAPSULE PO PRN (13:30)
[2023-09-30] MEDS ORDERED: IBUPROFEN 400 MG TABLET PO PRN (13:30)
[2023-09-30] MEDS ORDERED: ACETAMINOPHEN 325 MG TABLET PO PRN (13:30)
[2023-09-30] MEDS ORDERED: ONDANSETRON HCL 4 MG TABLET PO PRN (13:30)
[2023-09-30] MEDS ORDERED: CloNIDine HCL 0.1 MG TABLET PO PRN (13:30)
[2023-09-30] MEDS ORDERED: PETROLATUM,WHITE 28 GM JELLY TP PRN (13:30)
[2023-09-30 22:23] VITALS: BP 132/79; PULSE 79; RESP 16; TEMP 97.3; O2SAT 96
[2023-10-01 08:46] VITALS: BP 132/85; PULSE 95; RESP 16; TEMP 98.1; O2SAT 96
[2023-10-01 09:59] LABS: THYROID STIMULATING HORMONE 1.39 uIU/mL (0.36-3.74)
[2023-10-01 10:20] LABS: CHOL/HDL RATIO 4.1 (4.2-7.3)
[2023-10-01 16:25] LABS: HEMOGLOBIN A1C 5.4 % (3.8-5.6)
[2023-10-01 20:41] VITALS: BP 131/86; PULSE 70; TEMP 97.3; O2SAT 94
[2023-10-02 08:20] VITALS: BP 127/60; PULSE 78; RESP 17; TEMP 98; O2SAT 97
[2023-10-02 20:38] VITALS: BP 120/58; PULSE 96; TEMP 98.2; O2SAT 96
[2023-10-03 08:42] VITALS: BP 143/73; PULSE 80; RESP 18; TEMP 97.9; O2SAT 93
[2023-10-03 09:00] LABS: APPEARANCE,URINE CLEAR (CLEAR); BILIRUBIN,URINE NEGATIVE (NEGATIVE); COLOR,URINE LIGHT YELLOW (YELLOW); GLUCOSE, URINE (UA) NEGATIVE (NEGATIVE); KETONES,URINE NEGATIVE (NEGATIVE); LEUKOCYTE ESTERASE ,URINE NEGATIVE (NEGATIVE); NITRATE,URINE NEGATIVE (NEGATIVE); OCCULT BLOOD,URINE NEGATIVE (NEGATIVE); PROTEIN,URINE NEGATIVE (NEGATIVE); UROBILINOGEN,URINE <=1.0 mg/dL (<=1.0)
[2023-10-03 09:46] LABS: ALCOHOL, URINE DRUG SCREEN NEGATIVE (NEGATIVE); AMPHET/METH SCREEN,URINE NEGATIVE (NEGATIVE); BARBITURATE SCREEN, URINE NEGATIVE (NEGATIVE); BENZODIAZEPINES SCREEN,URINE NEGATIVE (NEGATIVE); CANNABINOID SCREEN,URINE NEGATIVE (NEGATIVE); COCAINE SCREEN,URINE NEGATIVE (NEGATIVE); METHADONE SCREEN, URINE NEGATIVE (NEGATIVE); OPIATE SCREEN,URINE NEGATIVE (NEGATIVE); PHENCYCLIDINE SCREEN,URINE NEGATIVE (NEGATIVE)
[2023-10-03] MEDS ORDERED: PALI234D IM (11:03)
[2023-10-03] MEDS ORDERED: BUPR-49 PO (11:03)
[2023-10-15] MEDS ORDERED: PALIPERIDONE PALMITATE 234 MG/1.5 ML SYRINGE IM SCH (09:00)
== END 2023-10-03 17:00 | disposition home or self-care (01) | DRG 750 ==
LOC: EMS 22:30 → B3A 09-29 07:33
PROVIDERS: ADMIT Psychiatry & Neurology Psychiatry; ATTEND Psychiatry & Neurology Psychiatry
PROC: GZHZZZZ Group Psychotherapy (ICD-10-PCS; principal; 2023-09-29)
DX: F25.1 Schizoaffective disorder, depressive type (principal); R45.851 Suicidal ideations; J45.909 Unspecified asthma, uncomplicated; E78.5 Hyperlipidemia, unspecified; F17.210 Nicotine dependence, cigarettes, uncomplicated; Z20.822 Contact with and (suspected) exposure to COVID-19; D72.829 Elevated white blood cell count, unspecified; Z91.030 Bee allergy status; Z91.010 Allergy to peanuts; Z79.899 Other long term (current) drug therapy
CPT/HCPCS: 80048; 80053; 80061; 80307; 81003; 83036; 84436; 84439; 84443; 85025; 86592; G0480

== ENCOUNTER 2023-10-20 15:47 | Inpatient (IN) | payer MEDICAID, OTHER ==
[~2023-10-20] VITALS: Ht 167.6 cm; Wt 101.4 kg
[~2023-10-20 15:47] MED LIST changes: +BUPR-49 PO
[2023-10-20 16:37] LABS: EOSINOPHILS % (AUTO) 2.8 % (1.0-6.0); HEMATOCRIT 43.5 % (41-53); HEMOGLOBIN 14.4 g/dL (13.5-17.5); LYMPHOCYTES # (AUTO) 2.4 K/uL (1.0-4.8); LYMPHOCYTES % (AUTO) 16.5 % (22.0-44.0); MEAN CORPUSCULAR HEMOGLOBIN 30.9 pg (26.0-34.0); MEAN CORPUSCULAR HGB CONC 33.1 G/dL (31.0-37.0); MEAN CORPUSCULAR VOLUME 93 fL (80-100); MONOCYTES # (AUTO) 1.3 K/uL (0.1-1.0); NEUTROPHILS # (AUTO) 10.3 K/uL (1.8-7.7); NEUTROPHILS % (AUTO) 70.7 % (40.0-70.0); PLATELET COUNT (AUTO) 372 K/uL (150-450); RED BLOOD CELL COUNT(AUTO) 4.66 MIL/uL (4.50-5.90); RED CELL DISTRIBUTION WIDTH 13.4 % (11.5-14.5); WHITE BLOOD COUNT (AUTO) 14.7 K/uL (4.5-11.0)
[2023-10-20] MEDS: HALOPERIDOL LACTATE 5 MG/ML VIAL IM ONE (16:40)
[2023-10-20] MEDS: DiphenhydrAMINE HCL 50 MG/ML VIAL IM ONE (16:40)
[2023-10-20] MEDS: LORazepam 2 MG/ML VIAL IM ONE (16:41)
[2023-10-20 16:42] LABS: ANION GAP 9 mmol/L (8-16); CALCIUM, TOTAL 8.4 mg/dL (8.8-10.5); CARBON DIOXIDE 26 mmol/L (22-29); CHLORIDE 103 mmol/L (98-107); CREATININE 0.72 mg/dL (0.60-1.30); GLOMERULAR FILTR. RATE CALC > 60 mL/min (>60); GLUCOSE,RANDOM 97 mg/dL (70-110); POTASSIUM 3.8 mmol/L (3.5-5.1); SODIUM SERUM 138 mmol/L (136-145); UREA NITROGEN, BLOOD 6 mg/dL (7-18)
[2023-10-20 16:59] LABS: AMPHET/METH SCREEN,URINE NEGATIVE (NEGATIVE); BARBITURATE SCREEN, URINE NEGATIVE (NEGATIVE); BENZODIAZEPINES SCREEN,URINE NEGATIVE (NEGATIVE); CANNABINOID SCREEN,URINE NEGATIVE (NEGATIVE); COCAINE SCREEN,URINE NEGATIVE (NEGATIVE); METHADONE SCREEN, URINE NEGATIVE (NEGATIVE); OPIATE SCREEN,URINE NEGATIVE (NEGATIVE); PHENCYCLIDINE SCREEN,URINE NEGATIVE (NEGATIVE)
[2023-10-20 17:05] LABS: ALCOHOL, URINE DRUG SCREEN NEGATIVE (NEGATIVE)
[2023-10-20 17:11] LABS: COVID AG,FIA SOURCE NASAL SWAB
[2023-10-20 17:45] LABS: SARS-COV2 (COVID) ANTIGEN,FIA Negative (Negative)
[2023-10-20 17:49] LABS: ALCOHOL, BLOOD (SERUM) < 3 mg/dL (0-10)
[2023-10-21] MEDS: HALOPERIDOL LACTATE 5 MG/ML VIAL IM ONE (10:02)
[2023-10-21] MEDS: LORazepam 2 MG/ML VIAL IM ONE (10:03)
[2023-10-21] MEDS: DiphenhydrAMINE HCL 50 MG/ML VIAL IM ONE (10:04)
[2023-10-21] MEDS: DOCUSATE CALCIUM 240 MG CAPSULE PO ONE (19:57)
[2023-10-22 01:54] VITALS: BP 138/80; RESP 16; TEMP 98.9; O2SAT 98
[2023-10-22] MEDS ORDERED: NICOTINE 14 MG/24 HOUR PATCH TD PRN (06:30)
[2023-10-22] MEDS ORDERED: MAGNESIUM HYDROXIDE SUSPENSION 30 ML UDCUP PO PRN (06:30)
[2023-10-22] MEDS ORDERED: ONDANSETRON HCL 4 MG TABLET PO PRN (06:30)
[2023-10-22] MEDS ORDERED: ACETAMINOPHEN 325 MG TABLET PO PRN (06:30)
[2023-10-22] MEDS ORDERED: CloNIDine HCL 0.1 MG TABLET PO PRN (06:30)
[2023-10-22] MEDS ORDERED: LOPERAMIDE HCL 2 MG CAPSULE PO PRN (06:30)
[2023-10-22] MEDS ORDERED: GuaiFENesin/D-METHORPHAN [SUGAR-FREE] 200-20MG/10 ML SYRUP UDCUP PO PRN (06:30)
[2023-10-22] MEDS ORDERED: MAG HYDROX/ALUMINUM HYD/SIMETH ES 30 ML SUSPENSION UDCUP PO PRN (06:30)
[2023-10-22] MEDS ORDERED: PETROLATUM,WHITE 28 GM JELLY TP PRN (06:30)
[2023-10-22] MEDS ORDERED: IBUPROFEN 400 MG TABLET PO PRN (06:30)
[2023-10-22] MEDS ORDERED: DOCUSATE SODIUM 100 MG CAPSULE PO PRN (06:30)
[2023-10-22] MEDS ORDERED: ALBUTEROL SULFATE HFA 90 MCG/PUFF 8 GM INHALER IH PRN (06:30)
[2023-10-22 08:03] VITALS: BP 151/83; PULSE 97; RESP 18; TEMP 98.6; O2SAT 93
[2023-10-22] MEDS: BuPROPion HCL XL 150 MG ER TABLET PO SCH (10:07)
[2023-10-22] MEDS: RisperiDONE 2 MG TABLET PO SCH (10:08)
[2023-10-22] MEDS: BusPIRone HCL 10 MG TABLET PO SCH (10:08)
[2023-10-22] MEDS: LORazepam 2 MG TABLET PO PRN (17:36)
[2023-10-22] MEDS: HALOPERIDOL 5 MG TABLET PO PRN (17:36)
[2023-10-22 20:14] VITALS: BP 131/84; PULSE 87; RESP 18; TEMP 98.2; O2SAT 97
[2023-10-23 08:02] VITALS: BP 146/77; PULSE 79; RESP 17; TEMP 98; O2SAT 95
[2023-10-23 08:11] LABS: APPEARANCE,URINE CLEAR (CLEAR); BILIRUBIN,URINE NEGATIVE (NEGATIVE); COLOR,URINE COLORLESS (YELLOW); GLUCOSE, URINE (UA) NEGATIVE (NEGATIVE); KETONES,URINE NEGATIVE (NEGATIVE); LEUKOCYTE ESTERASE ,URINE NEGATIVE (NEGATIVE); NITRATE,URINE NEGATIVE (NEGATIVE); OCCULT BLOOD,URINE NEGATIVE (NEGATIVE); PH,URINE 6.5 (5.0-8.0); PH,URINE DRUG SCREEN 6.5 (5.0-8.0); PROTEIN,URINE NEGATIVE (NEGATIVE); SPECIFIC GRAVITIY, URINE 1.004 (1.003-1.030); UROBILINOGEN,URINE <=1.0 mg/dL (<=1.0)
[2023-10-23 08:20] LABS: ALCOHOL, URINE DRUG SCREEN NEGATIVE (NEGATIVE); AMPHET/METH SCREEN,URINE NEGATIVE (NEGATIVE); BARBITURATE SCREEN, URINE NEGATIVE (NEGATIVE); BENZODIAZEPINES SCREEN,URINE NEGATIVE (NEGATIVE); CANNABINOID SCREEN,URINE NEGATIVE (NEGATIVE); COCAINE SCREEN,URINE NEGATIVE (NEGATIVE); METHADONE SCREEN, URINE NEGATIVE (NEGATIVE); OPIATE SCREEN,URINE NEGATIVE (NEGATIVE); PHENCYCLIDINE SCREEN,URINE NEGATIVE (NEGATIVE)
[2023-10-23 08:39] LABS: CHOL/HDL RATIO 3.7 (4.2-7.3); THYROID STIMULATING HORMONE 2.17 uIU/mL (0.36-3.74)
[2023-10-23 08:43] LABS: HEMOGLOBIN A1C 5.3 % (3.8-5.6)
[2023-10-23 20:14] VITALS: BP 109/72; PULSE 86; TEMP 98; O2SAT 98
[2023-10-23] MEDS: ZOLPIDEM TARTRATE 10 MG TABLET PO PRN (21:02)
[2023-10-24 08:30] VITALS: BP 134/84; PULSE 91; RESP 17; TEMP 97.7; O2SAT 96
[2023-10-24 20:07] VITALS: BP 122/55; PULSE 83; TEMP 97.5; O2SAT 97
[2023-10-25 07:44] LABS: BASOPHILS % (AUTO) 1.1 % (0.0-2.0); EOSINOPHILS % (AUTO) 2.9 % (1.0-6.0); HEMATOCRIT 46.2 % (41-53); HEMOGLOBIN 15.3 g/dL (13.5-17.5); LYMPHOCYTES # (AUTO) 2.4 K/uL (1.0-4.8); LYMPHOCYTES % (AUTO) 20.7 % (22.0-44.0); MEAN CORPUSCULAR HEMOGLOBIN 31.2 pg (26.0-34.0); MEAN CORPUSCULAR HGB CONC 33.2 G/dL (31.0-37.0); MEAN CORPUSCULAR VOLUME 94 fL (80-100); MONOCYTES % (AUTO) 8.3 % (2.0-9.0); NEUTROPHILS # (AUTO) 7.9 K/uL (1.8-7.7); PLATELET COUNT (AUTO) 411 K/uL (150-450); RED BLOOD CELL COUNT(AUTO) 4.91 MIL/uL (4.50-5.90); RED CELL DISTRIBUTION WIDTH 13.1 % (11.5-14.5); WHITE BLOOD COUNT (AUTO) 11.8 K/uL (4.5-11.0)
[2023-10-25 08:07] VITALS: BP 128/73; PULSE 69; RESP 17; TEMP 98.4; O2SAT 96
[2023-10-25] MEDS ORDERED: BUPR-514 PO ×2 (12:44→12:48)
[2023-10-25] MEDS ORDERED: BUSP10TA23 PO (12:45)
[2023-10-30] MEDS ORDERED: PALIPERIDONE PALMITATE 234 MG/1.5 ML SYRINGE IM SCH (09:00)
== END 2023-10-25 19:23 | disposition left against medical advice (07) | DRG 750 ==
LOC: EMS 15:51 → B3A 10-21 23:25
PROVIDERS: ADMIT Psychiatry & Neurology Psychiatry; ATTEND Psychiatry & Neurology Psychiatry
PROC: GZHZZZZ Group Psychotherapy (ICD-10-PCS; principal; 2023-10-22)
PROC: GZ52ZZZ Individual Psychotherapy, Cognitive (ICD-10-PCS; 2023-10-22)
DX: F25.1 Schizoaffective disorder, depressive type (principal); R45.851 Suicidal ideations; J45.909 Unspecified asthma, uncomplicated; E66.01 Morbid (severe) obesity due to excess calories; D72.829 Elevated white blood cell count, unspecified; F17.210 Nicotine dependence, cigarettes, uncomplicated; E78.5 Hyperlipidemia, unspecified; Z53.29 Procedure and treatment not carried out because of patient's decision for other reasons; Z20.822 Contact with and (suspected) exposure to COVID-19; Z79.899 Other long term (current) drug therapy; Z91.010 Allergy to peanuts; Z91.51 Personal history of suicidal behavior; Z68.36 Body mass index [BMI] 36.0-36.9, adult
CPT/HCPCS: 80048; 80061; 80307; 81003; 83036; 84443; 85025; 99285; G0480; J1200; J1630; J2060

== ENCOUNTER 2023-12-21 12:58 | Inpatient (IN) | payer MEDICAID ==
[~2023-12-21] VITALS: Ht 167.6 cm; Wt 103.9 kg
[2023-12-21] MEDS ORDERED: LORazepam 2 MG/ML VIAL ONE (15:15)
[2023-12-21] MEDS ORDERED: HALOPERIDOL LACTATE 5 MG/ML VIAL ONE (15:15)
[2023-12-21] MEDS ORDERED: DiphenhydrAMINE HCL 50 MG/ML VIAL ONE (15:15)
[2023-12-21] MEDS: LORazepam 2 MG/ML VIAL IM ONE (17:23)
[2023-12-21] MEDS: HALOPERIDOL LACTATE 5 MG/ML VIAL IM ONE (17:26)
[2023-12-21] MEDS: DiphenhydrAMINE HCL 50 MG/ML VIAL IM ONE (17:26)
[2023-12-21] MEDS ORDERED: ALBUTEROL SULFATE HFA 90 MCG/PUFF 8 GM INHALER IH PRN (17:30)
[2023-12-21 18:04] VITALS: RESP 18
[2023-12-22] MEDS: ZOLPIDEM TARTRATE 10 MG TABLET PO PRN (02:38)
[2023-12-22 02:39] VITALS: RESP 20
[2023-12-22 08:13] LABS: BASOPHILS % (AUTO) 1.3 % (0.0-2.0); HEMOGLOBIN 14.8 g/dL (13.5-17.5); LYMPHOCYTES # (AUTO) 2.3 K/uL (1.0-4.8); MEAN CORPUSCULAR HEMOGLOBIN 31.8 pg (26.0-34.0); MEAN CORPUSCULAR HGB CONC 33.7 G/dL (31.0-37.0); MEAN CORPUSCULAR VOLUME 94 fL (80-100); NEUTROPHILS # (AUTO) 5.8 K/uL (1.8-7.7); NEUTROPHILS % (AUTO) 60.7 % (40.0-70.0); PLATELET COUNT (AUTO) 368 K/uL (150-450); RED BLOOD CELL COUNT(AUTO) 4.66 MIL/uL (4.50-5.90); RED CELL DISTRIBUTION WIDTH 13.5 % (11.5-14.5); WHITE BLOOD COUNT (AUTO) 9.6 K/uL (4.5-11.0)
[2023-12-22 08:23] VITALS: BP 135/64; PULSE 68; RESP 18; TEMP 97.7; O2SAT 98
[2023-12-22 08:28] LABS: ALCOHOL, BLOOD (SERUM) < 3 mg/dL (0-10)
[2023-12-22 08:36] LABS: ALANINE AMINOTRANSFERASE 35 U/L (12-78); ALBUMIN 2.7 g/dL (3.4-5.0); ALKALINE PHOSPHATASE 57 U/L (46-116); ANION GAP 7 mmol/L (8-16); ASPARTATE AMINOTRANSFERASE 51 U/L (15-37); BILIRUBIN,TOTAL 0.2 mg/dL (0.1-1.0); CALCIUM, TOTAL 7.9 mg/dL (8.8-10.5); CARBON DIOXIDE 25 mmol/L (22-29); CHLORIDE 104 mmol/L (98-107); CREATININE 0.83 mg/dL (0.60-1.30); FREE T4 (FREE THYROXINE) 1.03 ng/dL (0.76-1.46); GLOMERULAR FILTR. RATE CALC > 60 mL/min (>60); GLUCOSE,RANDOM 96 mg/dL (70-110); POTASSIUM 4.1 mmol/L (3.5-5.1); SODIUM SERUM 136 mmol/L (136-145); TOTAL PROTEIN, SERUM 6.5 g/dL (6.4-8.2); UREA NITROGEN, BLOOD 9 mg/dL (7-18)
[2023-12-22] MEDS: LORazepam 2 MG TABLET PO PRN (08:49)
[2023-12-22] MEDS: HALOPERIDOL 5 MG TABLET PO PRN (08:49)
[2023-12-22] MEDS ORDERED: LOPERAMIDE HCL 2 MG CAPSULE PO PRN (09:00)
[2023-12-22] MEDS ORDERED: MAGNESIUM HYDROXIDE SUSPENSION 30 ML UDCUP PO PRN (09:00)
[2023-12-22] MEDS ORDERED: ALBUTEROL SULFATE HFA 90 MCG/PUFF 8 GM INHALER IH PRN (09:00)
[2023-12-22] MEDS ORDERED: IBUPROFEN 400 MG TABLET PO PRN (09:00)
[2023-12-22] MEDS ORDERED: MAG HYDROX/ALUMINUM HYD/SIMETH ES 30 ML SUSPENSION UDCUP PO PRN (09:00)
[2023-12-22] MEDS ORDERED: DOCUSATE SODIUM 100 MG CAPSULE PO PRN (09:00)
[2023-12-22] MEDS ORDERED: GuaiFENesin/D-METHORPHAN [SUGAR-FREE] 200-20MG/10 ML SYRUP UDCUP PO PRN (09:00)
[2023-12-22] MEDS ORDERED: PETROLATUM,WHITE 28 GM JELLY TP PRN (09:00)
[2023-12-22] MEDS ORDERED: ONDANSETRON HCL 4 MG TABLET PO PRN (09:00)
[2023-12-22] MEDS ORDERED: CloNIDine HCL 0.1 MG TABLET PO PRN (09:00)
[2023-12-22] MEDS ORDERED: ACETAMINOPHEN 325 MG TABLET PO PRN (09:00)
[2023-12-22] MEDS ORDERED: NICOTINE 14 MG/24 HOUR PATCH TD PRN (09:00)
[2023-12-22] MEDS ORDERED: HydrOXYzine PAMOATE 25 MG CAPSULE PO PRN (11:15)
[2023-12-22] MEDS: BuPROPion HCL XL 150 MG ER TABLET PO SCH (11:26)
[2023-12-22] MEDS: BusPIRone HCL 10 MG TABLET PO SCH (16:43)
[2023-12-22 21:04] VITALS: BP 141/59; PULSE 65; RESP 16; TEMP 97.9; O2SAT 95
[2023-12-23 08:27] LABS: APPEARANCE,URINE CLEAR (CLEAR); BILIRUBIN,URINE NEGATIVE (NEGATIVE); COLOR,URINE COLORLESS (YELLOW); GLUCOSE, URINE (UA) NEGATIVE (NEGATIVE); KETONES,URINE NEGATIVE (NEGATIVE); LEUKOCYTE ESTERASE ,URINE NEGATIVE (NEGATIVE); NITRATE,URINE NEGATIVE (NEGATIVE); OCCULT BLOOD,URINE NEGATIVE (NEGATIVE); PROTEIN,URINE NEGATIVE (NEGATIVE); SPECIFIC GRAVITIY, URINE 1.005 (1.003-1.030); UROBILINOGEN,URINE <=1.0 mg/dL (<=1.0)
[2023-12-23 08:30] VITALS: BP 147/86; PULSE 87; RESP 16; TEMP 97.7; O2SAT 96
[2023-12-23 08:32] LABS: HEMOGLOBIN A1C 5.3 % (3.8-5.6)
[2023-12-23 08:34] LABS: ALCOHOL, URINE DRUG SCREEN NEGATIVE (NEGATIVE); AMPHET/METH SCREEN,URINE NEGATIVE (NEGATIVE); BARBITURATE SCREEN, URINE NEGATIVE (NEGATIVE); BENZODIAZEPINES SCREEN,URINE NEGATIVE (NEGATIVE); CANNABINOID SCREEN,URINE NEGATIVE (NEGATIVE); COCAINE SCREEN,URINE NEGATIVE (NEGATIVE); METHADONE SCREEN, URINE NEGATIVE (NEGATIVE); OPIATE SCREEN,URINE NEGATIVE (NEGATIVE); PHENCYCLIDINE SCREEN,URINE NEGATIVE (NEGATIVE)
[2023-12-23 08:49] LABS: CHOL/HDL RATIO 2.9 (4.2-7.3); THYROID STIMULATING HORMONE 1.05 uIU/mL (0.36-3.74)
[2023-12-23 11:00] VITALS: BP 140/60
== END 2023-12-23 15:00 | disposition left against medical advice (07) | DRG 750 ==
LOC: B3A 13:21
PROVIDERS: ADMIT Psychiatry & Neurology Child & Adolescent Psychiatry; ATTEND Psychiatry & Neurology Child & Adolescent Psychiatry
PROC: GZHZZZZ Group Psychotherapy (ICD-10-PCS; principal; 2023-12-22)
PROC: GZ58ZZZ Individual Psychotherapy, Cognitive-Behavioral (ICD-10-PCS; 2023-12-22)
PROC: GZ56ZZZ Individual Psychotherapy, Supportive (ICD-10-PCS; 2023-12-22)
DX: F25.1 Schizoaffective disorder, depressive type (principal); E66.9 Obesity, unspecified; F41.9 Anxiety disorder, unspecified; J45.909 Unspecified asthma, uncomplicated; Z53.29 Procedure and treatment not carried out because of patient's decision for other reasons; Z68.37 Body mass index [BMI] 37.0-37.9, adult; G47.00 Insomnia, unspecified; R09.81 Nasal congestion; F17.210 Nicotine dependence, cigarettes, uncomplicated; Z91.010 Allergy to peanuts; Z79.899 Other long term (current) drug therapy
CPT/HCPCS: 80053; 80061; 80307; 83036; 84439; 84443; 85025; G0480; J1200; J1630; J2060

== ENCOUNTER 2024-07-10 00:20 | Inpatient (IN) | payer MEDICAID ==
[~2024-07-10] VITALS: Ht 167.6 cm; Wt 110.3 kg
[~2024-07-10 00:20] MED LIST changes: -BUPR-49 PO; -BUSP10TA23 PO; +DIVA-153 PO; +FLUO-177 PO; +NALT50TA33 PO; +OLAN5TAB94 PO; -PALI234D IM; +QUET25TA PO
[2024-07-10 04:07] VITALS: BP 137/91; PULSE 80; RESP 18; TEMP 97.5; O2SAT 96
[2024-07-10 08:19] VITALS: BP 140/83; PULSE 65; RESP 18; TEMP 97.7; O2SAT 99
[2024-07-10] MEDS: LORazepam 2 MG TABLET PO PRN (10:37)
[2024-07-10] MEDS: HALOPERIDOL 5 MG TABLET PO PRN (10:37)
[2024-07-10] MEDS: FLUoxetine HCL 20 MG CAPSULE PO SCH (12:35)
[2024-07-10] MEDS: DIVALPROEX SODIUM 500 MG ER TABLET PO SCH (21:05)
[2024-07-10] MEDS: OLANZapine 5 MG RAPDIS TABLET PO SCH (21:06)
[2024-07-10] MEDS ORDERED: LOPERAMIDE HCL 2 MG CAPSULE PO PRN (21:15)
[2024-07-10] MEDS ORDERED: MAGNESIUM HYDROXIDE SUSPENSION 30 ML UDCUP PO PRN (21:15)
[2024-07-10] MEDS ORDERED: IBUPROFEN 600 MG TABLET PO PRN (21:15)
[2024-07-10] MEDS ORDERED: BACITRACIN 28 GM OINTMENT TP PRN (21:15)
[2024-07-10] MEDS ORDERED: ONDANSETRON 4 MG TABLET PO PRN (21:15)
[2024-07-10] MEDS ORDERED: ACETAMINOPHEN 325 MG TABLET PO PRN (21:15)
[2024-07-10] MEDS ORDERED: CloNIDine HCL 0.1 MG TABLET PO PRN (21:15)
[2024-07-10] MEDS ORDERED: ALBUTEROL SULFATE HFA 90 MCG/PUFF 8 GM INHALER IH PRN (21:15)
[2024-07-10] MEDS ORDERED: DOCUSATE SODIUM 100 MG CAPSULE PO PRN (21:15)
[2024-07-10] MEDS ORDERED: PETROLATUM,WHITE 28 GM JELLY TP PRN (21:15)
[2024-07-10] MEDS ORDERED: BENZOCAINE/MENTHOL [CEPACOL] LOZENGE PO PRN (21:15)
[2024-07-10] MEDS ORDERED: OMEPRAZOLE 20 MG CAPSULE PO PRN (21:15)
[2024-07-10] MEDS ORDERED: MAG HYDROX/ALUMINUM HYD/SIMETH ES 30 ML SUSPENSION UDCUP PO PRN (21:15)
[2024-07-11 08:16] LABS: BASOPHILS % (AUTO) 1.6 % (0.0-2.0); EOSINOPHILS % (AUTO) 4.2 % (1.0-6.0); HEMATOCRIT 44.4 % (41-53); LYMPHOCYTES # (AUTO) 3.1 K/uL (1.0-4.8); LYMPHOCYTES % (AUTO) 30.1 % (22.0-44.0); MEAN CORPUSCULAR HEMOGLOBIN 31.8 pg (26.0-34.0); MEAN CORPUSCULAR HGB CONC 33.8 G/dL (31.0-37.0); MEAN CORPUSCULAR VOLUME 94 fL (80-100); MONOCYTES % (AUTO) 10.2 % (2.0-9.0); NEUTROPHILS # (AUTO) 5.5 K/uL (1.8-7.7); NEUTROPHILS % (AUTO) 53.9 % (40.0-70.0); PLATELET COUNT (AUTO) 382 K/uL (150-450); RED BLOOD CELL COUNT(AUTO) 4.73 MIL/uL (4.50-5.90); WHITE BLOOD COUNT (AUTO) 10.2 K/uL (4.5-11.0)
[2024-07-11 08:42] LABS: HEMOGLOBIN A1C 5.3 % (3.8-5.6)
[2024-07-11 08:44] VITALS: BP 138/96; PULSE 72; RESP 18; TEMP 97.5; O2SAT 98
[2024-07-11 08:53] LABS: ALANINE AMINOTRANSFERASE 97 U/L (12-78); ALBUMIN 2.7 g/dL (3.4-5.0); ALKALINE PHOSPHATASE 69 U/L (46-116); ANION GAP 8 mmol/L (8-16); ASPARTATE AMINOTRANSFERASE 48 U/L (15-37); BILIRUBIN,TOTAL 0.4 mg/dL (0.1-1.0); CALCIUM, TOTAL 8.1 mg/dL (8.8-10.5); CARBON DIOXIDE 24 mmol/L (22-29); CHLORIDE 105 mmol/L (98-107); CHOLESTEROL 155 mg/dL (131-200); CREATININE 0.83 mg/dL (0.60-1.30); GLOMERULAR FILTR. RATE CALC > 60 mL/min (>60); GLUCOSE,RANDOM 93 mg/dL (70-110); HDL CHOLESTEROL 51 mg/dL (40-60); LDL CHOL (CALC.) 69 mg/dL (0-130); POTASSIUM 3.7 mmol/L (3.5-5.1); SODIUM SERUM 137 mmol/L (136-145); THYROID STIMULATING HORMONE 1.16 uIU/mL (0.36-3.74); TOTAL PROTEIN, SERUM 6.5 g/dL (6.4-8.2); TRIGLYCERIDES 177 mg/dL (15-150); UREA NITROGEN, BLOOD 6 mg/dL (7-18)
[2024-07-11 20:00] VITALS: BP 133/74; PULSE 86; RESP 18; TEMP 97.9; O2SAT 98
[2024-07-12 08:14] VITALS: BP 148/75; PULSE 84; RESP 18; TEMP 97.8; O2SAT 97
[2024-07-12 20:27] VITALS: BP 135/88; PULSE 85; RESP 19; TEMP 98; O2SAT 95
[2024-07-13 08:12] VITALS: BP 143/69; PULSE 60; RESP 18; TEMP 97.4; O2SAT 98
[2024-07-13 20:17] VITALS: BP 136/72; PULSE 75; RESP 18; TEMP 98; O2SAT 99
[2024-07-14 08:43] VITALS: BP 136/76; PULSE 77; RESP 18; TEMP 98; O2SAT 99
[2024-07-14 20:27] VITALS: BP 139/89; PULSE 84; RESP 17; TEMP 98.9; O2SAT 100
[2024-07-15 13:58] VITALS: BP 141/73; PULSE 83; RESP 17; TEMP 98; O2SAT 97
[2024-07-15 20:45] VITALS: BP 153/96; PULSE 83; RESP 16; TEMP 97.8; O2SAT 95
[2024-07-16] MEDS: ZOLPIDEM TARTRATE 10 MG TABLET PO PRN (02:27)
[2024-07-16 08:31] VITALS: RESP 18
[2024-07-16 20:38] VITALS: BP 123/57; PULSE 62; RESP 18; TEMP 98.9; O2SAT 96
[2024-07-17 08:18] VITALS: BP 120/62; PULSE 60; RESP 17; TEMP 97.6; O2SAT 96
== END 2024-07-17 11:50 | disposition home or self-care (01) | DRG 750 ==
LOC: B3A 01:21
PROVIDERS: ADMIT Psychiatry & Neurology Psychiatry; ATTEND Psychiatry & Neurology Psychiatry
PROC: GZHZZZZ Group Psychotherapy (ICD-10-PCS; principal; 2024-07-10)
PROC: GZ52ZZZ Individual Psychotherapy, Cognitive (ICD-10-PCS; 2024-07-10)
DX: F25.1 Schizoaffective disorder, depressive type (principal); R45.851 Suicidal ideations; E66.01 Morbid (severe) obesity due to excess calories; F41.9 Anxiety disorder, unspecified; E78.5 Hyperlipidemia, unspecified; G47.00 Insomnia, unspecified; F19.10 Other psychoactive substance abuse, uncomplicated; K59.00 Constipation, unspecified; Z79.899 Other long term (current) drug therapy; Z91.51 Personal history of suicidal behavior; Z91.010 Allergy to peanuts; Z91.030 Bee allergy status; Z59.00 Homelessness unspecified; Z68.39 Body mass index [BMI] 39.0-39.9, adult; Z72.0 Tobacco use
CPT/HCPCS: 80053; 80061; 83036; 84443; 85025